=== PATIENT | female | born 1960 | race Caucasian/White ===

== ENCOUNTER 2017-09-16 14:27 | Observation (INO) ==
--- NOTE | 2017-09-16 15:38 | Emergency Department Note ---
Disposition Clinical Impression: Lung mass Disposition: Admitted As Inpatient Condition: Good Time of Disposition: 19:52 Abdominal Pain HPI - General Chief Complaint: ED Abdominal Pain Stated Complaint: Left flank Pain seen last night Time Seen by Provider: 09/16/17 15:22 Source: patient Mode of arrival: ambulatory Limitations: no limitations Nursing Notes Reviewed: Yes Vital Signs Reviewed: Yes - History of Present Illness HPI Narrative: Patient presents to the ED with chief complaint of left flank pain. Patient states the pain started a couple days ago. States it starts in her left back and radiates up towards her left shoulder blade. Worse with movement, but not palpation. It is pleuritic. Makes her feel short of breath. No fever, chills , cough, chest pain, abdominal pain, nausea, vomiting or diarrhea. No previous history of coronary artery disease or kidney stones. No history of DVT, PE or malignancy. No recent travel or surgery. No estrogen use. States that she was seen here yesterday and told she had a muscle strain and states that nothing she was given has helped. Pain Scale: 10 - Related Data Home Medications Medication Instructions Recorded Confirmed Omeprazole [PriLOSEC] 20 mg PO DAILY 09/16/17 09/16/17 Phenytoin ER [Dilantin ER] 200 mg PO BID 09/16/17 09/16/17 Allergies Allergy/AdvReac Type Severity Reaction Status Date / Time No Known Allergies Allergy Verified 09/16/17 17:55 Review of Systems: As reviewed in the HPI. All other systems reviewed are negative or normal. Abdominal Pain PMH - Past Medical History Medical history: Reports: seizures Female Surgical History: Reports: other Psychiatric history: Reports: no psych history - Social History Smoking status: Current every day smoker Alcohol use: Reports: none Drug use: Reports: none Physical Exam CONSTITUTIONAL: Well appearing, but does appear uncomfortable, in no acute distress SKIN: [Warm, dry, and intact without rash] EYES: [extraocular movements are grossly intact, clear conjunctiva] HENT: [Normocephalic, atraumatic, moist mucus membranes] NECK: [no obvious swelling, normal range of motion] PULMONARY: [normal chest rise and fall, no respiratory distress or stridor CARDIOVASCULAR: [regular rate, distal extremities are warm and well perfused] GASTROINSTESTINAL: [nondistended, non-tender] GENITOURINARY: [deferred] NEUROLOGIC: [normal speech, moves all extremities] MUSCULOSKELETAL: [no gross deformities, atraumatic, no flank or muscular tenderness in the area the patient is describing] PSYCHIATRIC: [normal mood and affect] - General Limitations: no limitations General appearance: alert, in no apparent distress Course Course Narrative: Patient presenting to the ED with left flank pain radiating to her left shoulder. Was seen yesterday and had a urinalysis that did show some hematuria. We will get a CT of her abdomen and pelvis to evaluate for kidney stone. Also will get a cardiac workup including a d-dimer for atypical chest pain with CXR, does have a long h/o smoking - Reevaluation(s) Reevaluation #1: CXR shows large L hilar mass. Concerning for CA. CTA shows large mass as well. Spoke with oncology, Dr. Springer, would like patient admitted with pulm consult for biopsy and initiation of treatment. Vital Signs Temperature 98.1 F 09/16/17 14:58 Pulse Rate 87 09/16/17 14:58 Respiratory Rate 20 09/16/17 14:58 Blood Pressure 112/69 09/16/17 14:58 O2 Sat by Pulse Oximetry 96 09/16/17 14:58 Temperature 98.1 F 09/16/17 15:26 Pulse Rate 84 09/16/17 19:13 Respiratory Rate 18 09/16/17 19:43 Blood Pressure 122/67 09/16/17 19:43 O2 Sat by Pulse Oximetry 96 09/16/17 19:13 Oxygen Delivery Oxygen Delivery Room Air Abdominal Pain - Lab Data Result diagrams: 09/16/17 15:42 09/16/17 15:42 Lab Results 09/16/17 09/16/17 09/16/17 Range/Units 15:36 15:42 15:42 WBC 12.6 H (4.3-11.1) K/mcL RBC 4.46 (3.82-4.97) M/mcL Hgb 13.4 (11.5-15.4) g/dL Hct 40.8 (35.3-44.9) % MCV 91.5 (83.0-100.0) fL MCH 30.0 (28.0-33.3) pg MCHC 32.8 (31.6-35.5) g/dL RDW 14.6 H (11.5-14.5) % Plt Count 460 H (140-400) K/mcL MPV 9.2 L (9.4-12.4) fL Immature Gran % 0.5 (0-4) % Seg Neutrophils % 77.2 % Lymphocytes % 13.4 % Monocytes % 7.9 % Eosinophils % 0.5 % Basophils % 0.5 % Neutrophils # 9.7 H (1.6-8.9) K/mcL Lymphocytes # 1.7 (0.6-4.6) K/mcL Monocytes # 1.0 (0.0-1.3) K/mcL Eosinophils # 0.1 (0.0-0.6) K/mcL Basophils # 0.1 (0.0-0.2) K/mcL D-Dimer (0-500) ng/mLFEU Sodium 138 (136-145) mEq/L Potassium 4.1 (3.5-5.1) mEq/L Chloride 108 H (98-107) mEq/L Carbon Dioxide 23 (23-29) mEq/L BUN 14 (6-20) mg/dL Creatinine 0.74 (0.60-1.20) mg/dL Est GFR ( Amer) > 60 (> 60) Est GFR (Non-Af Amer) > 60 (> 60) BUN/Creatinine Ratio 19 (6-26) Glucose 105 (70-105) mg/dL Calculated Osmolality 287 (280-300) Calcium 9.7 (8.6-10.3) mg/dL Troponin I (< 0.04) ng/mL Urine Color Yellow (Yellow) Urine Clarity Clear (Clear) Urine pH 5.0 (5.0-8.0) pH Units Ur Specific [place] 1.025 (1.010-1.025) Urine Protein Negative (Neg-Trace) mg/dL Urine Glucose (UA) Normal (Normal) mg/dL Urine Ketones 15 H (Negative) mg/dL Urine Blood Negative (Negative) Urine Nitrite Negative (Negative) Urine Bilirubin Small H (Negative) Urine Urobilinogen Normal (Normal) mg/dL Ur Leukocyte Esterase Negative (Negative) Ur Culture Indicated? NO (NO) 09/16/17 09/16/17 Range/Units 15:42 15:42 WBC (4.3-11.1) K/mcL RBC (3.82-4.97) M/mcL Hgb (11.5-15.4) g/dL Hct (35.3-44.9) % MCV (83.0-100.0) fL MCH (28.0-33.3) pg MCHC (31.6-35.5) g/dL RDW (11.5-14.5) % Plt Count (140-400) K/mcL MPV (9.4-12.4) fL Immature Gran % (0-4) % Seg Neutrophils % % Lymphocytes % % Monocytes % % Eosinophils % % Basophils % % Neutrophils # (1.6-8.9) K/mcL Lymphocytes # (0.6-4.6) K/mcL Monocytes # (0.0-1.3) K/mcL Eosinophils # (0.0-0.6) K/mcL Basophils # (0.0-0.2) K/mcL D-Dimer 1037 H (0-500) ng/mLFEU Sodium (136-145) mEq/L Potassium (3.5-5.1) mEq/L Chloride (98-107) mEq/L Carbon Dioxide (23-29) mEq/L BUN (6-20) mg/dL Creatinine (0.60-1.20) mg/dL Est GFR ( Amer) (> 60) Est GFR (Non-Af Amer) (> 60) BUN/Creatinine Ratio (6-26) Glucose (70-105) mg/dL Calculated Osmolality (280-300) Calcium (8.6-10.3) mg/dL Troponin I < 0.03 (< 0.04) ng/mL Urine Color (Yellow) Urine Clarity (Clear) Urine pH (5.0-8.0) pH Units Ur Specific [place] (1.010-1.025) Urine Protein (Neg-Trace) mg/dL Urine Glucose (UA) (Normal) mg/dL Urine Ketones (Negative) mg/dL Urine Blood (Negative) Urine Nitrite (Negative) Urine Bilirubin (Negative) Urine Urobilinogen (Normal) mg/dL Ur Leukocyte Esterase (Negative) Ur Culture Indicated? (NO)
[2017-09-16 15:50] LABS: Bilirubin,Urine Small (Negative); Blood,Urine Negative (Negative); Clarity,Urine Clear (Clear); Color,Urine Yellow (Yellow); Glucose,Urine (UA) Normal (Normal); Ketones,Urine 15 mg/dL (Negative); Leukocyte Esterase,Urine Negative (Negative); Nitrite,Urine Negative (Negative); Protein,Urine Negative (Neg-Trace); Specific Gravity,Urine 1.025 (1.010-1.025); Urobilinogen,Urine Normal (Normal)
[2017-09-16] MEDS ORDERED: *HR* Morphine 2 MG/ML SYRINGE IVP ONE (15:58)
[2017-09-16] MEDS ORDERED: Ondansetron 4 MG/2 ML VIAL IVP ONE (15:58)
[2017-09-16] MEDS ORDERED: 0.9 % Sodium Chloride 1,000 ML IVC ONE (15:58)
[2017-09-16] MEDS ORDERED: Orphenadrine 60 MG/2 ML VIAL IV ONE (15:58)
[2017-09-16 15:59] LABS: Basophils # 0.1 K/mcL (0.0-0.2); Basophils % 0.5 %; Eosinophils # 0.1 K/mcL (0.0-0.6); Eosinophils % 0.5 %; Hematocrit 40.8 % (35.3-44.9); Hemoglobin 13.4 g/dL (11.5-15.4); Immature Granulocytes % 0.5 % (0-4); Lymphocytes # 1.7 K/mcL (0.6-4.6); Lymphocytes % 13.4 %; Mean Corpuscular HGB Conc 32.8 g/dL (31.6-35.5); Mean Corpuscular Volume 91.5 fL (83.0-100.0); Mean Platelet Volume 9.2 fL (9.4-12.4); Monocytes % 7.9 %; Neutrophils # 9.7 K/mcL (1.6-8.9); Platelet Count 460 K/mcL (140-400); Red Blood Count 4.46 M/mcL (3.82-4.97); Red Cell Distribution Width 14.6 % (11.5-14.5); Segmented Neutrophils % 77.2 %
[2017-09-16 16:16] LABS: BUN/Creatinine Ratio 19 (6-26); Blood Urea Nitrogen 14 mg/dL (6-20); Calcium 9.7 mg/dL (8.6-10.3); Carbon Dioxide 23 mEq/L (23-29); Chloride 108 mEq/L (98-107); Glucose 105 mg/dL (70-105); Osmolality,Calculated 287 (280-300); Potassium 4.1 mEq/L (3.5-5.1); Sodium 138 mEq/L (136-145); eGFR For Non-African Americans > 60 (> 60)
[2017-09-16] MEDS ORDERED: Isovue-370 500 ML INFUS..BTL IV ONE (16:26)
--- NOTE | 2017-09-16 17:25 | Emergency Department Note ---
Disposition Clinical Impression: Lung mass Disposition: Still a Patient Forms: ED Satisfaction Letter, Work/School Release General Adult HPI - General Chief complaint: ED Abdominal Pain Stated complaint: Left flank Pain seen last night Time Seen by Provider: 09/16/17 15:22 Source: patient Mode of arrival: ambulatory Limitations: no limitations - History of Present Illness Pain Scale: 10 - Related Data Previous Rx's Medication Instructions Recorded Lidocaine Patch [Lidoderm 5% patch] 1 each TP DAILY PRN #4 adh..patch 09/15/17 Allergies Allergy/AdvReac Type Severity Reaction Status Date / Time No Known Allergies Allergy Verified 09/16/17 14:57 Past Medical History - Past Medical History Medical history: Reports: seizures Psychiatric history: Reports: no psych history - Social History Smoking Status: Current every day smoker Alcohol use: Reports: none Drug use: Reports: none Physical Exam - General Limitations: no limitations General appearance: alert, in no apparent distress Course Vital Signs Temperature 98.1 F 09/16/17 14:58 Pulse Rate 87 09/16/17 14:58 Respiratory Rate 20 09/16/17 14:58 Blood Pressure 112/69 09/16/17 14:58 O2 Sat by Pulse Oximetry 96 09/16/17 14:58 Temperature 98.1 F 09/16/17 15:26 Pulse Rate 87 09/16/17 15:26 Respiratory Rate 20 09/16/17 15:26 Blood Pressure 112/69 09/16/17 15:26 O2 Sat by Pulse Oximetry 96 09/16/17 15:26 Oxygen Delivery Oxygen Delivery Room Air Medical Decision Making - Lab Data Result diagrams: 09/16/17 15:42 09/16/17 15:42 Lab Results 09/16/17 09/16/17 09/16/17 Range/Units 15:36 15:42 15:42 WBC 12.6 H (4.3-11.1) K/mcL RBC 4.46 (3.82-4.97) M/mcL Hgb 13.4 (11.5-15.4) g/dL Hct 40.8 (35.3-44.9) % MCV 91.5 (83.0-100.0) fL MCH 30.0 (28.0-33.3) pg MCHC 32.8 (31.6-35.5) g/dL RDW 14.6 H (11.5-14.5) % Plt Count 460 H (140-400) K/mcL MPV 9.2 L (9.4-12.4) fL Immature Gran % 0.5 (0-4) % Seg Neutrophils % 77.2 % Lymphocytes % 13.4 % Monocytes % 7.9 % Eosinophils % 0.5 % Basophils % 0.5 % Neutrophils # 9.7 H (1.6-8.9) K/mcL Lymphocytes # 1.7 (0.6-4.6) K/mcL Monocytes # 1.0 (0.0-1.3) K/mcL Eosinophils # 0.1 (0.0-0.6) K/mcL Basophils # 0.1 (0.0-0.2) K/mcL D-Dimer (0-500) ng/mLFEU Sodium 138 (136-145) mEq/L Potassium 4.1 (3.5-5.1) mEq/L Chloride 108 H (98-107) mEq/L Carbon Dioxide 23 (23-29) mEq/L BUN 14 (6-20) mg/dL Creatinine 0.74 (0.60-1.20) mg/dL Est GFR ( Amer) > 60 (> 60) Est GFR (Non-Af Amer) > 60 (> 60) BUN/Creatinine Ratio 19 (6-26) Glucose 105 (70-105) mg/dL Calculated Osmolality 287 (280-300) Calcium 9.7 (8.6-10.3) mg/dL Troponin I (< 0.04) ng/mL Urine Color Yellow (Yellow) Urine Clarity Clear (Clear) Urine pH 5.0 (5.0-8.0) pH Units Ur Specific [place] 1.025 (1.010-1.025) Urine Protein Negative (Neg-Trace) mg/dL Urine Glucose (UA) Normal (Normal) mg/dL Urine Ketones 15 H (Negative) mg/dL Urine Blood Negative (Negative) Urine Nitrite Negative (Negative) Urine Bilirubin Small H (Negative) Urine Urobilinogen Normal (Normal) mg/dL Ur Leukocyte Esterase Negative (Negative) Ur Culture Indicated? NO (NO) 09/16/17 09/16/17 Range/Units 15:42 15:42 WBC (4.3-11.1) K/mcL RBC (3.82-4.97) M/mcL Hgb (11.5-15.4) g/dL Hct (35.3-44.9) % MCV (83.0-100.0) fL MCH (28.0-33.3) pg MCHC (31.6-35.5) g/dL RDW (11.5-14.5) % Plt Count (140-400) K/mcL MPV (9.4-12.4) fL Immature Gran % (0-4) % Seg Neutrophils % % Lymphocytes % % Monocytes % % Eosinophils % % Basophils % % Neutrophils # (1.6-8.9) K/mcL Lymphocytes # (0.6-4.6) K/mcL Monocytes # (0.0-1.3) K/mcL Eosinophils # (0.0-0.6) K/mcL Basophils # (0.0-0.2) K/mcL D-Dimer 1037 H (0-500) ng/mLFEU Sodium (136-145) mEq/L Potassium (3.5-5.1) mEq/L Chloride (98-107) mEq/L Carbon Dioxide (23-29) mEq/L BUN (6-20) mg/dL Creatinine (0.60-1.20) mg/dL Est GFR ( Amer) (> 60) Est GFR (Non-Af Amer) (> 60) BUN/Creatinine Ratio (6-26) Glucose (70-105) mg/dL Calculated Osmolality (280-300) Calcium (8.6-10.3) mg/dL Troponin I < 0.03 (< 0.04) ng/mL Urine Color (Yellow) Urine Clarity (Clear) Urine pH (5.0-8.0) pH Units Ur Specific [place] (1.010-1.025) Urine Protein (Neg-Trace) mg/dL Urine Glucose (UA) (Normal) mg/dL Urine Ketones (Negative) mg/dL Urine Blood (Negative) Urine Nitrite (Negative) Urine Bilirubin (Negative) Urine Urobilinogen (Normal) mg/dL Ur Leukocyte Esterase (Negative) Ur Culture Indicated? (NO) Attestation Statement - Attestation Attestation: I examined this patient and my medical decision-making was reviewed with the Resident Physician. I agree with the documented findings, disposition and treatment plan as described except to the extent set forth below. 57 year old female presents to the ED with complanits of left flan pain that appears to be more left lower ribs and is not tender to palpation. She was seen here recently. She denies headache, hemoptyosis or pdocutive cough but states that the pain is deeper especially with deep breaths. She is a long standing smoker since she was 16 years of age wihtout history of cancer or HX of DVTs/PEs. WE will do CTA chest as her D-dimer came back positive and concordant UA has cleared up. 1724: It appears that there is a large lung mass on CXR and it is confirmed on CTA for possibe primary neoplams of the lung. WE will consutl wi oncology
[2017-09-16] MEDS ORDERED: Naloxone 0.4 MG/ML INJ IVP PRN ×2 (20:40)
[2017-09-16] MEDS ORDERED: OXYCODONE Oral CONC 10 MG/0.5 ML ORAL.SYG SL PRN (20:40)
--- NOTE | 2017-09-16 20:40 | Internal Med History&Physical ---
<Bryce Clemons - Last Filed: 09/16/17 21:53> Date of Encounter: 09/16/17 Time of Encounter: 20:39 Internal Medicine - H&P: HPI Chief complaint: Flank pain Admitted From: Emergency Dept Plans for Post Hospital Care: Home History of present illness: Ms. Garrett is a 57 year old female with past medical history of seizures presented to emergency department with complaint of left flank pain 5 days. She was notably seen emergency department on 09/15/17 with the same complaint and was discharged home with suspected musculoskeletal pain and sent home with a lidocaine patch. Patient states that the pain is located in the left flank and does not radiate. She describes it as a squeezing pain and has never experienced this in the past. Pain is exacerbated by lying flat, coughing, deep breaths and is relieved only minimally with sitting up. She denies any symptoms of chest pain, shortness of breath, cough outside of her normal smoker' s cough, fevers, nausea, vomiting, abdominal pain, dysuria, hematuria. Patient does admit to some chills over the past 24 hours. In the emergency room, vital signs were unremarkable and lab results were standard for a d-dimer of 1037 and CTA of the chest was obtained. This did reveal a large perihilar mass in the left side measuring 7.26.6 cm which encases and invades the left hilar structures. CT of the abdomen was unremarkable except for above findings. Oncology was consult that at that time and recommended admission with a pulmonary consult for possibly a bronchoscopy and biopsy of mass. Patient was informed that this is likely malignant in nature. Past medical history includes seizures most recently 4 years ago well- controlled on medications Past surgical history to abdomen includes tubal Social history includes a 39 [id number] history of cigarette smoking, denies alcohol or drug use Past Med Surg Social Fam HX - Past Medical History Medical history: seizures Psychiatric history: no psych history - Past Surgical History Additional surgical history: tubal - Social History Smoking Status: Current every day smoker Packs per day: 1 Smokeless Tobacco Status: No Alcohol use: none Drug use: none - Family History Father Hx Family Cardiac Disorders: Yes (HTN) Internal Medicine - H&P: Meds Omeprazole [PriLOSEC] 20 mg PO DAILY 09/16/17 [History] Phenytoin ER [Dilantin ER] 200 mg PO BID 09/16/17 [History] 3 Allergy/AdvReac Type Severity Reaction Status Date / Time No Known Allergies Allergy Verified 09/16/17 17:55 All Systems PM: A 10-system review of systems was performed and is negative for pertinent findings except as documented above in the HPI. - Constitutional Constitutional: chills, no fatigue, no fever(s), no lethargy, no malaise, no weakness - Cardiovascular Cardiovascular ROS IM: no chest pain, no diaphoresis, no dyspnea, no dyspnea on exertion, no edema, no orthopnea, no palpitations, no syncope - Respiratory Respiratory: cough (Chronic), pain on inspiration, pain with cough, no dyspnea, no hemoptysis, no dyspnea on exertion - Gastrointestinal Gastrointestinal: no abdominal pain, no change in bowel habits, no constipation , no diarrhea, no hematemesis, no hematochezia, no melena, no nausea, no vomiting - Genitourinary Genitourinary: flank pain, no dysuria, no hematuria - Musculoskeletal Musculoskeletal ROS IM: back pain - Integumentary Integumentary IM: no new lesions - Neurological Neurological ROS: no dizziness, no numbness, no tingling - Constitutional Vitals: Temp Pulse Resp BP Pulse Ox 98.6 F 86 16 123/67 96 09/16/17 20:09 09/16/17 20:09 09/16/17 20:09 09/16/17 20:09 09/16/17 20:09 Exam: Gen.: Vitals noted. No acute distress. AAOx3 HEENT: PERRL/EOMI, oropharynx clear, Normocephalic, atraumatic, MMM Cardiac: RRR, no murmur, +S1/S2 Pulmonary: CTA bilaterally, no wheezes, rales or rhonchi, equal chest expansion Abdomen: soft, nontender, BS noted, no guarding, no rebound. MSK: Reproducible flank pain on left Extremities: no BLE edema, nontender calf, no cyanosis or clubbing Neuro: A&Ox3, moves all extremities, no focal deficits Psych: Appropriate mood and behavior Internal Med - H&P Results - Labs CBC & Chem 7: 09/16/17 15:42 09/16/17 15:42 - Assessment and plan (1) Lung mass Current Visit: Yes Status: Acute Assessment and plan: - As demonstrated on CT scan emerged department - Left perihilar mass measuring 7.2 x 6.6 cm which encases and invades the left perihilar structures. Likely malignant - Oncology consult that in emergency department and recommend biopsy and admission for such. Pulmonology was in consult in for preparation for bronchoscopy with biopsy - Patient is having no symptoms of chest pain, shortness of breath, hematemesis , hemoptysis Plan - Closely monitor for signs of deterioration given extent of mass - Oncology and pulmonology consultation, appreciate recommendations - We will give supplemental oxygen as needed (2) Acute left flank pain Current Visit: Yes Status: Acute Assessment and plan: Suspect secondary to diaphragmatic irritation from lung mass versus referred pain CT scan in the emergency department of the abdomen showed no acute abnormalities except for lung mass as mentioned above Supportive care at this time (3) Seizures Current Visit: Yes Status: Acute Assessment and plan: Continue home medications, patient reports no seizures last 4 years on medication (4) Tobacco abuse Current Visit: Yes Status: Acute Assessment and plan: - Patient admits to one pack per day since age 16 - Counseled about smoking cessation, patient is adamant that she is going to quit after diagnosis of lung mass - Nicotine patches (5) DVT prophylaxis Current Visit: Yes Status: Acute Assessment and plan: SCDs in preparation for possible biopsy tomorrow - Time Spent With Patient Total time spent is greater than 50% in coordination of care (as documented) at patient's floor/unit and/or counseling patient: <Antoine Snow - Last Filed: 09/17/17 07:48> Date of Encounter: 09/16/17 Internal Medicine - H&P: HPI History of present illness: Ms. Garrett is a 57 year old female All Systems PM: A 10-system review of systems was performed and is negative for pertinent findings except as documented above in the HPI. - Constitutional Vitals: Temp Pulse Resp BP Pulse Ox 98.2 F 82 18 109/64 94 09/17/17 07:30 09/17/17 07:30 09/17/17 07:30 09/17/17 07:30 09/17/17 07:30 Internal Med - H&P Results - Labs CBC & Chem 7: 09/17/17 05:22 09/17/17 05:22 Labs: Short CBC 09/17/17 Range/Units 05:22 WBC 11.3 H (4.3-11.1) K/mcL Hgb 12.2 (11.5-15.4) g/dL Hct 37.3 (35.3-44.9) % Plt Count 441 H (140-400) K/mcL Neutrophils # 7.9 (1.6-8.9) K/mcL BMP 09/17/17 05:22 Sodium 140 Potassium 3.9 Chloride 107 Carbon Dioxide 22 L BUN 11 Creatinine 0.72 Glucose 75 Calcium 9.1 - Attending Attestation I saw and evaluated the patient. I reviewed the residents note, performed my own physical examination and agree with findings and plan as documented in the residents note. Patient has large lung mass as seen on CT exam. Patient has left flank pain, possibly due irritation from the mass. Pulmonology and oncology to see patient for treatment options. - Time Spent With Patient Total time spent is greater than 50% in coordination of care (as documented) at patient's floor/unit and/or counseling patient:
[2017-09-16] MEDS: Ondansetron 4 MG/2 ML VIAL IVP PRN (22:25)
[2017-09-17] MEDS ORDERED: OXYCODONE Oral CONC 10 MG/0.5 ML ORAL.SYG SL ONE (01:14)
[2017-09-17] MEDS: OXYCODONE Oral CONC 10 MG/0.5 ML ORAL.SYG SL PRN (05:51)
[2017-09-17 06:14] LABS: Basophils # 0.1 K/mcL (0.0-0.2); Basophils % 0.5 %; Eosinophils # 0.1 K/mcL (0.0-0.6); Eosinophils % 0.4 %; Hematocrit 37.3 % (35.3-44.9); Hemoglobin 12.2 g/dL (11.5-15.4); Immature Granulocytes % 0.4 % (0-4); Lymphocytes # 2.1 K/mcL (0.6-4.6); Lymphocytes % 18.6 %; Mean Corpuscular HGB Conc 32.7 g/dL (31.6-35.5); Mean Corpuscular Hemoglobin 30.1 pg (28.0-33.3); Mean Corpuscular Volume 92.1 fL (83.0-100.0); Mean Platelet Volume 9.7 fL (9.4-12.4); Monocytes # 1.1 K/mcL (0.0-1.3); Monocytes % 9.9 %; Neutrophils # 7.9 K/mcL (1.6-8.9); Platelet Count 441 K/mcL (140-400); Red Blood Count 4.05 M/mcL (3.82-4.97); Red Cell Distribution Width 14.6 % (11.5-14.5); Segmented Neutrophils % 70.2 %
[2017-09-17 06:31] LABS: BUN/Creatinine Ratio 15 (6-26); Blood Urea Nitrogen 11 mg/dL (6-20); Calcium 9.1 mg/dL (8.6-10.3); Carbon Dioxide 22 mEq/L (23-29); Chloride 107 mEq/L (98-107); Glucose 75 mg/dL (70-105); Osmolality,Calculated 288 (280-300); Potassium 3.9 mEq/L (3.5-5.1); Sodium 140 mEq/L (136-145); eGFR For Non-African Americans > 60 (> 60)
[2017-09-17] MEDS: Nicotine 7 MG PATCH.TD24 TD SCH ×2 (07:53→07:55)
--- NOTE | 2017-09-17 09:45 | Pulmonology Consult Note ---
<NickShanaeWilfredo C - Last Filed: 09/17/17 10:35> Date of Encounter: 09/17/17 Time of Encounter: 09:36 Assessment and Plan (1) Lung mass Current Visit: Yes Status: Acute Left Perihilar lung mass measuring 7.2x6.6 cm found on chest CTA yesterday Concerning for primary lung malignancy, diagnostic bronchoscopy with biopsy scheduled for today Differential includes bacterial, fungal, exudative, transudative, or inflammatory processes WBC count elevated, likely reactive, patient afebrile, vitals stable, patient does not meet SIRS criteria CBC and BMP otherwise non-contributory, infection, metabolic derangement or paraneoplastic syndrome unlikely Patient clinical disposition otherwise stable, oxygen saturation within normal limits on room air PRN albuterol nebulizer ordered for comfort, will likely need after bronchoscopy Oncology is also consulted, we will refer to their recommendations (2) Acute left flank pain Current Visit: Yes Status: Acute Left flank pain still acute, likely diaphragmatic and secondary to lung mass CT abdomen showed no acute process Primary team providing supportive care (3) Tobacco abuse Current Visit: Yes Status: Acute Patient is still an active smoker but states she is cutting down Will educate on risks/benefits of smoking cessation History of Present Illness Consult date: 09/16/17 Requesting physician: Mu Lira Reason for consult: lung mass Chief complaint: Lung Mass History of present illness: Ms. Garrett is a 57 -year-old female who presented to the emergency department last night for left flank pain that had been going on for 5 days. The pain does not radiate she describes it as a squeezing pain and has never had in the past. The pain is worsened by lying flat, coughing, deep breaths. She denied any chest pain, shortness of breath. She has a chronic cough likely due to smoking that is productive. She denies fevers, nausea, vomiting, abdominal pain. In the emergency department d-dimer was positive value of 1037, leading to a CTA of the chest. Imaging revealed a large perihilar mass in the left lung measuring 7.2 x 6.6 cm. The mass encases the left hilar structures. CT of the abdomen showed no acute process. At that point pulmonology and oncology were consulted. 4 likely need of diagnostic bronchoscopy. Patient's social history includes [id number] history of cigarette smoking but denies alcohol or drug use. Her only medication is Dilantin for seizures, the last seizure being 4 years ago. She has no other significant past medical history. Her only surgery that she mentions is a tubal . She has no documented history of COPD a diagnosis although she states that her primary care provider has mentioned it to her. She does not have history of asthma or hospitalizations for pneumonia. 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 She has 2 sisters who have had cancer, lung and melanoma respectively. At the point of my encounter her only complaint is fatigue and the left flank pain. She understands the plan for diagnostic bronchoscopy today. She denied any current questions or complaints. Past Med Surg Social Fam HX - Past Medical History Medical history: seizures Psychiatric history: no psych history - Past Surgical History Additional surgical history: tubal - Social History Smoking Status: Current every day smoker Packs per day: 1 Smokeless Tobacco Status: No Alcohol use: none Drug use: none - Family History Father Hx Family Cardiac Disorders: Yes (HTN) Medications and Allergies Omeprazole [PriLOSEC] 20 mg PO DAILY 09/16/17 [History] Phenytoin ER [Dilantin ER] 200 mg PO BID 09/16/17 [History] 3 Allergy/AdvReac Type Severity Reaction Status Date / Time No Known Allergies Allergy Verified 09/16/17 17:55 All Systems: The remainder of the systems were reviewed and are negative - Constitutional Constitutional: no chills, no fever(s) - Cardiovascular Cardiovascular: no chest pain, no diaphoresis, no dyspnea, no leg edema - Respiratory Respiratory: cough, pain with cough, no dyspnea, no hemoptysis, no change in phlegm color - Gastrointestinal Gastrointestinal: no abdominal pain, no vomiting - Musculoskeletal Musculoskeletal: no weakness - Neurological Neurological: no confusion, no syncope Physical Examination Vital Signs: Vital Signs, Last 4 Hours Temp Pulse Resp BP Pulse Ox 09/17/17 07:30 98.2 F 82 18 109/64 94 General appearance: no acute distress Eyes: nonicteric ENT: oropharynx moist Neck: supple, no JVD Effort: normal Inspection: normal Auscultation: bilateral: other (coarse) Cardiovascular: regular rate and rhythm Gastrointestinal: normoactive bowel sounds, non-tender, non-distended Integumentary: normal Extremities: no cyanosis, no edema Musculoskeletal: no deformities normal mental status, non-focal exam mood appropriate, affect normal Results - Laboratory Findings CBC and BMP: 09/17/17 05:22 09/17/17 05:22 PT/INR, D-dimer D-Dimer 1037 ng/mLFEU (0-500) H 09/16/17 15:42 Abnormal lab findings: Abnormal lab results WBC 11.3 K/mcL (4.3-11.1) H 09/17/17 05:22 RDW 14.6 % (11.5-14.5) H 09/17/17 05:22 Plt Count 441 K/mcL (140-400) H 09/17/17 05:22 D-Dimer 1037 ng/mLFEU (0-500) H 09/16/17 15:42 Carbon Dioxide 22 mEq/L (23-29) L 09/17/17 05:22 Urine Ketones 15 mg/dL (Negative) H 09/16/17 15:36 Urine Bilirubin Small (Negative) H 09/16/17 15:36 - Clinical Findings Intake & Output: Intake & Output 09/16/17 09/17/17 09/17/17 23:59 07:59 15:59 Output Total 150 / 150 Balance -150 / -150 Weight 55.1 kg Consult Discharge Plan - Plan Referrals: Loreta Prado CNP [Primary Care Provider] - <Kathleen Dang - Last Filed: 09/17/17 13:45> Date of Encounter: 09/17/17 All Systems: The remainder of the systems were reviewed and are negative Physical Examination Vital Signs: Vital Signs, Last 4 Hours Temp Pulse Resp BP Pulse Ox 09/17/17 11:36 98.3 F 83 18 108/64 95 Results - Laboratory Findings CBC and BMP: 09/17/17 05:22 09/17/17 05:22 PT/INR, D-dimer PT 12.3 Seconds (9.4-12.1) H 09/17/17 12:11 D-Dimer 1037 ng/mLFEU (0-500) H 09/16/17 15:42 Abnormal lab findings: Abnormal lab results WBC 11.3 K/mcL (4.3-11.1) H 09/17/17 05:22 RDW 14.6 % (11.5-14.5) H 09/17/17 05:22 Plt Count 441 K/mcL (140-400) H 09/17/17 05:22 PT 12.3 Seconds (9.4-12.1) H 09/17/17 12:11 D-Dimer 1037 ng/mLFEU (0-500) H 09/16/17 15:42 Carbon Dioxide 22 mEq/L (23-29) L 09/17/17 05:22 Urine Ketones 15 mg/dL (Negative) H 09/16/17 15:36 Urine Bilirubin Small (Negative) H 09/16/17 15:36 - Clinical Findings Intake & Output: Intake & Output 09/16/17 09/17/17 09/17/17 23:59 07:59 15:59 Output Total 150 / 150 400 / 400 Balance -150 / -150 -400 / -400 Weight 55.1 kg - Attending Attestation I examined this patient and my medical decision-making was reviewed with the Resident Physician. I agree with the documented findings, disposition and treatment plan as described except to the extent set forth below. Patient seen and examined. Labs, radiology, chart personally reviewed. 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 We will proceed with bronchoscopy. A bronchoscopy is recommended. The procedure , risks, benefits, complications, and expected outcomes have been reviewed. Benefits of diagnosis, as well as risks to include bleeding, infection, pneumothorax which may require surgical intervention, and in a small population. The patient is aware that sometimes test is nondiagnostic. Discussed with patient and agrees to proceed. Cardiovascular: stable Thank you for consultation.
[2017-09-17] MEDS ORDERED: Albuterol 2.5 MG/3 ML NEBULIZER IH PRN (09:55)
[2017-09-17] MEDS: Ondansetron 4 MG/2 ML VIAL IVP PRN (10:12)
--- NOTE | 2017-09-17 11:32 | Oncology Inp Consult Note ---
<Herlinda Fuentes - Last Filed: 09/17/17 13:51> Date of Encounter: 09/17/17 Time of Encounter: 11:27 Assessment and Plan (1) Lung mass Status: Acute Assessment and plan: Patient presents with left flank pain underwent CTA and was found to have a perihilar lung mass measuring 7.2 x 6.6 cm She has an extensive history of smoking Is concerning for malignancy and she will undergo bronchoscopy today plan to order MRI head w/wo contrast to rule out brain metastasis. PET scan outpatient. (2) Tobacco abuse Status: Acute Assessment and plan: Patient educated on smoking cessation. (3) Cancer screening Status: Acute Assessment and plan: patient was encouraged to obtain screening colonoscopy, mammogram, pap smear as she is not up to date on these follow up with PCP. - Data of Consult Patient: new to practice Consult date: 09/17/17 Requesting Physician: Antoine Snow MD Primary Care Provider: Loreta Prado CNP - Consult Narrative Reason for consult: Large hilar lung mass History of present illness: Ms. Garrett is a 57 year old female presented with chief complaint of left sided flank pain that started 2 days ago. Chest pain was a squeezing pain that radiated around the left ribs to the back. Her pain is worsened by yawning, and taking a deep breath, lying flat. She has never had this type of pain before. She denies headache, blurry vision, double vision, syncope, runny nose , sore throat, cough, sputum production, shortness of breath, hemoptysis, chest pain, palpitations, fevers, nausea, vomiting, abdominal pain, weight loss, hematochezia, melena, lower extremity swelling, LE pain, back pain, intolerance to hot or cold. In the emergency room patient had a d-dimer that was elevated and CT was obtained which showed a large perihilar mass measuring 7.2 x 6.6 cm. Patient has a [id number] history of smoking starting at the age of 16. She denies alcohol or drug use. She denies living in an environment with poor air quality. 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 She reports she does not like following a doctor and has not had a colonoscopy, mammogram and Pap smears in the past. Pulmonology was consulted and patient will undergo bronchoscopy today. Patient has a history of seizures and is on Dilantin and reports last seizure was 4 years ago. Past Med Surg Social Fam HX - Past Medical History Medical history: seizures Psychiatric history: no psych history - Past Surgical History Additional surgical history: tubal - Social History Smoking Status: Current every day smoker Packs per day: 1 Smokeless Tobacco Status: No Alcohol use: none Drug use: none - Family History Father Hx Family Cardiac Disorders: Yes (HTN) Medications and Allergies Omeprazole [PriLOSEC] 20 mg PO DAILY 09/16/17 [History] Phenytoin ER [Dilantin ER] 200 mg PO BID 09/16/17 [History] 3 Allergy/AdvReac Type Severity Reaction Status Date / Time No Known Allergies Allergy Verified 09/16/17 17:55 Review of systems: As per history of present illness Oncology - Exam - Constitutional Vitals: Temp Pulse Resp BP Pulse Ox 98.2 F 82 18 109/64 94 09/17/17 07:30 09/17/17 07:30 09/17/17 07:30 09/17/17 07:30 09/17/17 07:30 - Additional findings Additional findings: General: Pleasant without distress HEENT: Head atraumatic, normocephalic, EOMI, PERRL, neck nontender to palpation , absent lymphadenopathy, Moist Mucous Membranes, Heart: Regular rate and rhythm with no murmur Lungs: Clear to auscultation bilaterally Abdomen: Soft nontender, nondistended positive bowel sounds Skin: warm and dry, absent rash Extremities: Absent pedal edema, Neuro: Cranial nerves II through XII intact, UE and LE sensation equal bilaterally, UE and LEstrength 5/5, alert oriented 3, Vascular: Pedal and radial pulses 2 out of 4 Oncology - Results Labs: 3 09/17/17 09/17/17 05:22 05:22 WBC 11.3 H RBC 4.05 Hgb 12.2 Hct 37.3 MCV 92.1 MCH 30.1 MCHC 32.7 RDW 14.6 H Plt Count 441 H MPV 9.7 Immature Gran % 0.4 Seg Neutrophils % 70.2 Lymphocytes % 18.6 Monocytes % 9.9 Eosinophils % 0.4 Basophils % 0.5 Neutrophils # 7.9 Lymphocytes # 2.1 Monocytes # 1.1 Eosinophils # 0.1 Basophils # 0.1 Sodium 140 Potassium 3.9 Chloride 107 Carbon Dioxide 22 L BUN 11 Creatinine 0.72 Est GFR ( Amer) > 60 Est GFR (Non-Af Amer) > 60 BUN/Creatinine Ratio 15 Glucose 75 Calculated Osmolality 288 Calcium 9.1 Consult Discharge Plan - Plan Referrals: Loreta Prado CNP [Primary Care Provider] - <RoberAnna Marie beyer - Last Filed: 09/18/17 08:39> Date of Encounter: 09/18/17 - Data of Consult Requesting Physician: Antoine Snow MD Primary Care Provider: Loreta Praod CNP - Consult Narrative History of present illness: Ms. Garrett is a 57 year old female with a smoking history, left-sided lower chest pain presented to the emergency room a CT scan was obtained that showed large left upper lung mass extending to the hilum encasing vasculature, status post bronchoscopy and biopsy of the hilar mass. CT scan of the abdomen did not show any evidence of metastatic disease. SHe will need an outpatient PET scan brain imaging prior to beginning definitive treatment. I have discussed possible diagnosis and treatments with patient and family pending final biopsy. I examined this patient with Herlinda Platt and my medical decision- making was reviewed with him. I agree with the documented findings, disposition and treatment plan as described below Oncology - Exam - Constitutional Vitals: Temp Pulse Resp BP Pulse Ox 98.5 F 78 16 101/59 95 09/18/17 07:17 09/18/17 07:17 09/18/17 07:17 09/18/17 07:17 09/18/17 07:17 Oncology - Results Labs: 3 09/17/17 09/17/17 09/17/17 16:01 12:11 05:22 WBC RBC Hgb Hct MCV MCH MCHC RDW Plt Count MPV Immature Gran % Seg Neutrophils % Lymphocytes % Monocytes % Eosinophils % Basophils % Neutrophils # Lymphocytes # Monocytes # Eosinophils # Basophils # PT 12.3 H INR 1.1 Sodium 140 Potassium 3.9 Chloride 107 Carbon Dioxide 22 L BUN 11 Creatinine 0.72 Est GFR ( Amer) > 60 Est GFR (Non-Af Amer) > 60 BUN/Creatinine Ratio 15 Glucose 75 Calculated Osmolality 288 Calcium 9.1 Fluid Source left upper lobe BAL Fluid Volume 16 Fluid Appearance Hazy A Fluid RBC TNP Fld Tot Nucleated Cell TNP Fluid Seg Neutrophil % 71.0 Fluid Lymphocytes % 7.0 Fluid Monocytes % 2.0 Fluid Eosinophils % 1.0 Fluid Other Cells % 19.0 3 09/17/17 05:22 WBC 11.3 H RBC 4.05 Hgb 12.2 Hct 37.3 MCV 92.1 MCH 30.1 MCHC 32.7 RDW 14.6 H Plt Count 441 H MPV 9.7 Immature Gran % 0.4 Seg Neutrophils % 70.2 Lymphocytes % 18.6 Monocytes % 9.9 Eosinophils % 0.4 Basophils % 0.5 Neutrophils # 7.9 Lymphocytes # 2.1 Monocytes # 1.1 Eosinophils # 0.1 Basophils # 0.1 PT INR Sodium Potassium Chloride Carbon Dioxide BUN Creatinine Est GFR ( Amer) Est GFR (Non-Af Amer) BUN/Creatinine Ratio Glucose Calculated Osmolality Calcium Fluid Source Fluid Volume Fluid Appearance Fluid RBC Fld Tot Nucleated Cell Fluid Seg Neutrophil % Fluid Lymphocytes % Fluid Monocytes % Fluid Eosinophils % Fluid Other Cells %
[2017-09-17 12:38] LABS: INR 1.1; Prothrombin Time 12.3 Seconds (9.4-12.1)
[2017-09-17] MEDS ORDERED: Gadolinium Contrast Agent (WT Based) IV PRN (13:53)
--- NOTE | 2017-09-17 14:01 | Anesthesia Evaluation PreOp ---
Date of Encounter: 09/17/17 Time of Encounter: 13:59 - Past History Planned Operation: Bronchoscopy re: Lung Mass Cardiac History: Denies any Significant Hx Pulmonary History: Smoker (1 ppd x 41yrs) CAD INTERN History: Seizures (well controlled. Last Sz approx 4 years ago) Other Medical History: Denies Any Significant HX, GERD Anesthesia History: Past Anesthesia (Ectopic 2000) Alcohol Use: none Drug use: none Medications and Allergies Omeprazole [PriLOSEC] 20 mg PO DAILY 09/16/17 [History] Phenytoin ER [Dilantin ER] 200 mg PO BID 09/16/17 [History] 3 Allergy/AdvReac Type Severity Reaction Status Date / Time No Known Allergies Allergy Verified 09/16/17 17:55 - Meds/Allergy Pre-op Review Medications Reviewed: Yes Allergies Reviewed: Yes Beta Blockers on Current Med List: No Anesthesia Results - Labs 09/17/17 05:22 09/17/17 05:22 Laboratory Results Impressions Abdomen/Pelvis CT 09/16/17 15:24 IMPRESSION: 1. Invasive mass involving the left hilar region, incompletely evaluated. Additionally, there is a small loculated left pleural effusion, and possible postobstructive pneumonitis of the left lower lobe. Findings are concerning for malignancy. Please refer to CTA chest for further comment. 2. No acute findings within the abdomen. 3. No acute findings within the pelvis. D/ / 09/16/2017 17:14:40 Rory Solitario MD / [facility] Interpreting Provider: Rory Solitario MD Chest X-Ray 09/16/17 15:35 IMPRESSION: Large left lung mass with left basilar atelectasis and trace left pleural effusion. Recommend better characterization with contrast-enhanced CT of the chest D/ / Juancarlos Green MD / Juancarlos Green MD Interpreting Provider: Juancarlos Green MD Chest CTA 09/16/17 16:26 IMPRESSION: Large left upper lobe mass measuring 7.2 x 6.6 cm which has the appearance of a primary malignant neoplasm of the lung. The mass encases and invades into left hilar structures. Postobstructive changes seen in the lingula and left lower lobe as well as small left pleural effusion. There is no evidence of acute pulmonary embolism although there is invasion into the left pulmonary vein. D/ / 09/16/2017 17:13:01 Leatha Luke MD / Janie Trevino Interpreting Provider: Leatha Luke MD Laboratory Tests 09/16/17 09/17/17 09/17/17 15:42 05:22 12:11 PT 12.3 H INR 1.1 D-Dimer 1037 H Est GFR (Non-Af Amer) > 60 - Imaging Chest x-ray: report reviewed Anesthesia Exam Vital Signs Temp Pulse Resp BP Pulse Ox 09/17/17 11:36 98.3 F 83 18 108/64 95 09/17/17 07:30 98.2 F 82 18 109/64 94 09/17/17 03:59 98.7 F 84 16 116/68 94 09/16/17 23:54 98.5 F 83 16 121/65 97 09/16/17 20:09 98.6 F 86 16 123/67 96 09/16/17 19:43 18 122/67 09/16/17 19:13 84 16 123/67 96 09/16/17 17:41 83 16 117/69 96 09/16/17 15:26 98.1 F 87 20 112/69 96 09/16/17 14:58 98.1 F 87 20 112/69 96 Intake and Output 09/16/17 09/17/17 09/17/17 23:59 07:59 15:59 Intake Total 1000 / 1000 Output Total 150 / 150 400 / 400 Balance 1000 / 1000 -150 / -150 -400 / -400 Intake: IV Fluids 1000 / 1000 0.9 % Sodium Chloride 1,000 ML 1000 / 1000 @ 3750 mls/hr IVC .Q16M ONE Rx# :[id number] Output: Urine 150 / 150 400 / 400 Other: Weight 55.1 kg Height: 5'1" Weight: 121# BMI = 23 NPO (# of Hours): MNoc - HEENT Pupil (Motor): Pupils equal, EOMI Mallampati: III Teeth: Normal (fair dentition) Oral Opening: Greater than 3 - CAD INTERN LOC: Oriented CAD INTERN Motor: Normal RUE, Normal LUE, Normal RLE, Normal LLE, Normal Face CAD INTERN Sensory: Normal: RUE, LUE, RLE, LLE, Face - Cardiac Rhythm: Regular Murmur: None - Pulmonary Breath Sounds: bilateral Clear Respiratory Effort: Symmetrical Anesthesia Assess/Plan ASA Score: 3 (Smoker, Sz disorder, New PeriHilar lung mass) Modified [place] Scale for Level of Consciousness: Cooperative, oriented, and tranquil Anesthetic Plan: General Monitoring Plan: Standard Monitors Recovery Plan: PACU Anes Supervising Prov Stmt: Pt seen/evaluated, R&B Discussed, questions answered and consent obtained. Zak Mejia MD
[2017-09-17] MEDS ORDERED: Ipratropium/Albuterol Neb 3 ML ONE (14:17)
[2017-09-17] MEDS ORDERED: Lidocaine -MPF 2% 2 ML VIAL ONE (14:34)
[2017-09-17] MEDS ORDERED: *HR* Succinylcholine 200 MG/10 ML VIAL IVP ONE (14:34)
[2017-09-17] MEDS ORDERED: *HR* Propofol 200 MG/20 ML VIAL IVP ONE ×2 (14:34→15:09)
[2017-09-17] MEDS ORDERED: Lidocaine -MPF 4% 5 ML AMPUL ONE (14:34)
[2017-09-17] MEDS ORDERED: Ondansetron 4 MG/2 ML VIAL ONE (14:34)
[2017-09-17] MEDS ORDERED: Dexamethasone 4 MG/ML VIAL ONE (14:34)
[2017-09-17] MEDS ORDERED: Ondansetron 4 MG/2 ML VIAL IVP ONE (15:02)
[2017-09-17] MEDS ORDERED: *HR* Labetalol 20 MG/4 ML SYRINGE IVP PRN (15:02)
[2017-09-17] MEDS ORDERED: EPHEDrine 50 MG/ML VIAL ONE (15:22)
[2017-09-17] MEDS ORDERED: *HR* FentaNYL (PF) 100 MCG/2 ML VIAL ONE (15:32)
[2017-09-17] MEDS ORDERED: *HR* EPINEPHrine 1 MG/10 ML SYRINGE ONE (15:57)
--- NOTE | 2017-09-17 16:13 | Anesthesia Evaluation Post Op ---
Date of Encounter: 09/17/17 Time of Encounter: 16:11 - Vital Signs Vital Signs: Vital Signs/O2 Sat, Most Current Temp Pulse Resp BP Pulse Ox 97.4 F L 99 26 131/64 96 09/17/17 15:54 09/17/17 16:04 09/17/17 16:04 09/17/17 16:04 09/17/17 16:04 - Lungs Lungs: Rhonchi (end exp. with frequent cough), Treatment Ordered - Cardiovascular Regular Rate, Treatment Ordered (albuteral RTx) - Mental Status Mental Status: Alert & Oriented, Answers Appropriately - Pain Pain Scale: 0 - Nausea Vomiting Nausea Vomiting: Not Present - Hydration Hydration: NPO - Discharge PostOp Status: Transfer Patient to floor
[2017-09-17] MEDS: Ringers Solution, Lactated 1,000 ML IVC SCH (16:31)
--- NOTE | 2017-09-17 17:37 | Internal Med Progress Note ---
Hospitalist Progress Note - Encounter Date of Encounter: 09/17/17 Time of Encounter: 09:50 - Subjective Interval History: Patient was seen and assessed at bedside at 9:50 AM. She appears to be uncomfortable and reports left flank pain for 5 days. Lungs are clear and diminished due to poor inspiratory effort. Patient is aware that she is to undergo bronchoscopy today and see oncology and pulmonology. We will reassess pain tomorrow, we will probably start patient on long-term medication for discharge. - Exam Vitals: Temp Pulse Resp BP Pulse Ox 97.2 F L 88 26 106/57 92 09/17/17 16:24 09/17/17 17:00 09/17/17 16:24 09/17/17 17:00 09/17/17 17:00 Exam: Pt pwd, no rashes or lesions noted, she is alert and awake, oriented, no focal neurological deficits. PERRLA, no facial droop, or pronator drift. Neck is supple without lymphadenopathy, no tracheal deviation. Lungs are clear and diminished, poor inspiratory effort noted due to pain. There is no tachypnea, wheezing, rales, or rhonchi. S1 and S2 is heard without tachycardia bradycardia. There are no gallops, clicks, murmurs. Abdomen is soft and nontender to palpation, slightly rounded with bowel sounds present. She has no peripheral edema. Pedal and radial pulses are +2 bilaterally. - Assessment and Plan (1) Lung mass Current Visit: Yes Status: Acute Assessment and Plan: Per CT the emergency department. - Left perihilar mass measuring 7.2 x 6.6 cm which encases and invades the left perihilar structures. Likely malignant Patient had bronchoscopy today for biopsy. Patient was also evaluated by oncology. Recommend patient have PET scan outpatient, obtain screening colonoscopy, mammogram, Pap smear since she is not up-to-date. Brain MRI is ordered and pending. O2 as needed to maintain sats greater than 92% Pulmonology and oncology following, I appreciate their recommendations and consultations. Monitor patient for any signs of deterioration. (2) Tobacco abuse Current Visit: Yes Status: Acute Assessment and Plan: Smoking cessation counseling completed by previous provider. Continue NicoDerm patches. (3) DVT prophylaxis Current Visit: Yes Status: Acute Assessment and Plan: SCDs are ordered. (4) Seizures Current Visit: Yes Status: Acute Assessment and Plan: Chronic. Well controlled. Last seizure was 4 years ago. Continue home medication. DVT Prophylaxis: SCDs ordered. - Time Spent with Patient Total time spent is greater than 50% in coordination of care (as documented) at patient's floor/unit and/or counseling patient: less than 15 minutes Plan of Care Discussed with: family Internal Medicine: Result - Labs CBC & Chem 7: 09/17/17 05:22 09/17/17 05:22 Labs: Short CBC 09/17/17 Range/Units 05:22 WBC 11.3 H (4.3-11.1) K/mcL Hgb 12.2 (11.5-15.4) g/dL Hct 37.3 (35.3-44.9) % Plt Count 441 H (140-400) K/mcL Neutrophils # 7.9 (1.6-8.9) K/mcL BMP 09/17/17 05:22 Sodium 140 Potassium 3.9 Chloride 107 Carbon Dioxide 22 L BUN 11 Creatinine 0.72 Glucose 75 Calcium 9.1 - ABG Interpretation ABG results: PT/INR, D-dimer PT 12.3 Seconds (9.4-12.1) H 09/17/17 12:11 D-Dimer 1037 ng/mLFEU (0-500) H 09/16/17 15:42 - VTE Documentation of Mechanical Device: Intermittent pneumatic compression device Consult Discharge Plan - Plan Referrals: Loreta Prado CNP [Primary Care Provider] -
[2017-09-17 21:09] LABS: Appearance of Body Fluid Hazy (Clear); Volume of Body Fluid 16 mL
[2017-09-18] MEDS: OXYCODONE Oral CONC 10 MG/0.5 ML ORAL.SYG SL PRN (01:35)
[2017-09-18] MEDS: Ringers Solution, Lactated 1,000 ML IVC SCH (07:29)
[2017-09-18] MEDS: Nicotine 7 MG PATCH.TD24 TD SCH (07:54)
[2017-09-18 08:47] LABS: Basophils % 0.4 %; Eosinophils # 0.1 K/mcL (0.0-0.6); Eosinophils % 0.8 %; Hematocrit 32.9 % (35.3-44.9); Hemoglobin 10.9 g/dL (11.5-15.4); Immature Granulocytes % 0.5 % (0-4); Lymphocytes % 17.6 %; Mean Corpuscular HGB Conc 33.1 g/dL (31.6-35.5); Mean Corpuscular Hemoglobin 29.4 pg (28.0-33.3); Mean Corpuscular Volume 88.7 fL (83.0-100.0); Mean Platelet Volume 9.2 fL (9.4-12.4); Monocytes % 8.8 %; Neutrophils # 8.1 K/mcL (1.6-8.9); Platelet Count 430 K/mcL (140-400); Red Blood Count 3.71 M/mcL (3.82-4.97); Red Cell Distribution Width 14.6 % (11.5-14.5); Segmented Neutrophils % 71.9 %
[2017-09-18 09:02] LABS: BUN/Creatinine Ratio 15 (6-26); Blood Urea Nitrogen 11 mg/dL (6-20); Calcium 9.1 mg/dL (8.6-10.3); Carbon Dioxide 23 mEq/L (23-29); Chloride 104 mEq/L (98-107); Glucose 114 mg/dL (70-105); Osmolality,Calculated 284 (280-300); Potassium 3.6 mEq/L (3.5-5.1); Sodium 137 mEq/L (136-145); eGFR For Non-African Americans > 60 (> 60)
[2017-09-18] MEDS ORDERED: traMADol 50 MG TABLET PO ONE (11:17)
--- NOTE | 2017-09-18 13:29 | Oncology Inp Progress Note ---
Date of Encounter: 09/18/17 Time of Encounter: 13:28 (1) Lung mass Current Visit: Yes Status: Acute Assessment and plan: Patient presents with left flank pain underwent CTA and was found to have a perihilar lung mass measuring 7.2 x 6.6 cm She has an extensive history of smoking Patient status post bronchoscopy awaiting pathology Outpatient with oncologist set up Outpatient PET scan set up (2) Tobacco abuse Current Visit: Yes Status: Acute Assessment and plan: Patient educated on smoking cessation. (3) Cancer screening Current Visit: Yes Status: Acute Assessment and plan: patient was encouraged to obtain screening colonoscopy, mammogram, pap smear as she is not up to date on these follow up with PCP. Oncology: Subj Interval history: No acute events overnight. Patient tolerated bronchoscopy yesterday. This morning she denies headache, blurry vision, cough, chest pain, shortness of breath, lower extremity pain. - Constitutional Vitals: Vital Signs Temp Pulse Resp BP Pulse Ox 09/18/17 11:50 98.4 F 81 16 99/54 91 09/18/17 07:17 98.5 F 78 16 101/59 95 09/18/17 04:10 98.9 F 78 16 103/55 94 09/17/17 23:33 98.0 F 80 14 101/54 94 09/17/17 20:07 85 16 97/53 09/17/17 18:44 87 18 106/65 96 09/17/17 18:00 91 18 97/57 91 09/17/17 17:00 88 106/57 92 09/17/17 16:38 90 109/67 90 09/17/17 16:24 97.2 F L 93 26 111/54 96 09/17/17 16:14 92 24 113/54 94 09/17/17 16:04 99 26 131/64 96 09/17/17 15:54 97.4 F L 98 24 114/58 98 09/17/17 14:49 98.3 F 83 18 108/64 95 Intake and Output 09/17/17 09/18/17 09/18/17 23:59 07:59 15:59 Intake Total 240 / 240 Output Total 100 / 100 200 / 200 Balance -100 / -100 -200 / -200 240 / 240 Intake: Oral 240 / 240 Output: Urine 100 / 100 200 / 200 Other: Meal Dinner Breakfast Percent of Meal Consumed 70% 50% Weight 59.5 kg Patient Weight 09/18/17 23:59 Weight 59.5 kg - Additional findings Additional findings: General: without distress Heart: Regular rate and rhythm with no murmur Lungs: Clear to auscultation bilaterally Abdomen: Soft nontender, nondistended positive bowel sounds Skin: warm and dry, absent rash Extremities: Absent pedal edema, Neuro: Alert oriented 3 Vascular: Pedal and radial pulses 2 out of 4 Oncology: Obj Data - Labs CBC & Chem 7: 09/18/17 08:21 09/18/17 08:21 Labs: Laboratory Results - last 24 hr 09/17/17 09/18/17 09/18/17 16:01 08:21 08:21 WBC 11.3 H RBC 3.71 L Hgb 10.9 L Hct 32.9 L MCV 88.7 MCH 29.4 MCHC 33.1 RDW 14.6 H Plt Count 430 H MPV 9.2 L Immature Gran % 0.5 Seg Neutrophils % 71.9 Lymphocytes % 17.6 Monocytes % 8.8 Eosinophils % 0.8 Basophils % 0.4 Neutrophils # 8.1 Lymphocytes # 2.0 Monocytes # 1.0 Eosinophils # 0.1 Basophils # 0.0 Sodium 137 Potassium 3.6 Chloride 104 Carbon Dioxide 23 BUN 11 Creatinine 0.74 Est GFR ( Amer) > 60 Est GFR (Non-Af Amer) > 60 BUN/Creatinine Ratio 15 Glucose 114 H Calculated Osmolality 284 Calcium 9.1 Fluid Source left upper lobe BAL Fluid Volume 16 Fluid Appearance Hazy A Fluid RBC TNP Fld Tot Nucleated Cell TNP Fluid Seg Neutrophil % 71.0 Fluid Lymphocytes % 7.0 Fluid Monocytes % 2.0 Fluid Eosinophils % 1.0 Fluid Other Cells % 19.0 - Impressions Impressions Brain MRI 09/17/17 13:53 IMPRESSION: No evidence of intracranial metastatic disease. D/ / 09/17/2017 22:14:14 Jamie Nick MD / bcarter Interpreting Provider: Jamie Nick MD - ABG Interpretation ABG results: PT/INR, D-dimer PT 12.3 Seconds (9.4-12.1) H 09/17/17 12:11 D-Dimer 1037 ng/mLFEU (0-500) H 09/16/17 15:42 Consult Discharge Plan - Plan Additional Instructions: Follow-up appointments: If there is not an appointment listed below, please call your physician and schedule a follow-up appointment. If you have congestive heart failure and your symptoms return, make an appointment with your physician. Medication List: Carry an up to date list of medications you are taking at all time. We have given you an updated medication list including any new medications that you have been prescribed. Please provide that list to your primary provider Symptoms: If your condition changes or you experience any of the following symptoms, notify your physician immediately: Unusual or worsening pain, fever, persistent nausea and vomiting, bleeding, increase in swelling (especially in your legs), sudden weight gain, extreme dizziness, chest pain, increased drainage or redness from a wound or incision. Go to the emergency department if you experience a problem with breathing. Weights: If you have a history of swelling or shortness of breath, weigh yourself daily and notify your physician if you have a weight gain of two or more pounds in one day or 5 or more pounds in a week. If you experience any of the warning signs for stroke: Sudden numbness or weakness of the face, arm or leg; especially on one side of the body, sudden confusion, trouble speaking or understanding, sudden trouble seeing in one or both eyes, sudden trouble walking, dizziness, loss of balance or coordination, sudden sever headache with no cause; Call 911 or go to the emergency room. Stroke is a medical emergency. Some risk factors for stroke: Age, cigarette smoking, diabetes, excessive alcohol consumption, family history , high blood pressure, overweight, physical inactivity, prior stroke, heart attack, diagnosis of carotid artery stenosis or other artery disease. If you smoke, STOP: Smoking or tobacco use significantly increases your risk of heart and lung disease. Your chance of disease greatly increases if you continue to smoke. For more information, call the [place] tobacco quit line for smoking cessation 5 QUIT-NOW ( ) Referrals: Loreta Prado CNP [Primary Care Provider] - 09/25/17 10:30 am
--- NOTE | 2017-09-18 13:45 | Pulmonology Progress Note ---
<Wilfredo Nick - Last Filed: 09/18/17 13:43> Date of Encounter: 09/18/17 Time of Encounter: 13:43 Assessment and Plan (1) Lung mass Current Visit: Yes Status: Acute Lung mass found on CXR and CT at admission, Bronchoscopy performed yesterday Transbronchial needle aspiration, endobronchial biopsy, and bronchoalveolar lavage all perfomed Will await cytology and pathology results to tailor treatment Oncology consulted, ordered MRI brain and other routine screening Patient medically stable, ventilating and saturating appropriately on room air Patient stable for discharge and outpatient follow up (2) Acute left flank pain Current Visit: Yes Status: Acute Patient presented with flank pain attributed to diaphragmatic irritation Currently treated with lidocaine patch, pain well controlled (3) Tobacco abuse Current Visit: Yes Status: Acute Patient educated on smoking cessation Subjective Principal diagnosis: Lung mass Interval history: Patient was found to have large lung mass at admission, bronchoscopy performed yesterday Patient has no complaints today, denies chest pain or shortness of breath She is aware that we are awaiting biopsy results to tailor treatment and that she can follow outpatient Objective PUL Vital signs: Last Vital Signs Temp 98.4 F 09/18/17 11:50 Pulse 81 09/18/17 11:50 Resp 16 09/18/17 11:50 BP 99/54 09/18/17 11:50 Pulse Ox 91 09/18/17 11:50 Patient in no acute distress Alert and Oriented x 3, follows commands Heart in regular rate and rhtyhm without murmur or gallop Lungs exhibit rales in right lower lobe, otherwise clear to auscultation Abdomen soft and non tender Legs non edematous Skin warm and dry Results - Laboratory Findings CBC and BMP: 09/18/17 08:21 09/18/17 08:21 PT/INR, D-dimer PT 12.3 Seconds (9.4-12.1) H 09/17/17 12:11 D-Dimer 1037 ng/mLFEU (0-500) H 09/16/17 15:42 Abnormal lab findings: Abnormal lab results WBC 11.3 K/mcL (4.3-11.1) H 09/18/17 08:21 RBC 3.71 M/mcL (3.82-4.97) L 09/18/17 08:21 Hgb 10.9 g/dL (11.5-15.4) L 09/18/17 08:21 Hct 32.9 % (35.3-44.9) L 09/18/17 08:21 RDW 14.6 % (11.5-14.5) H 09/18/17 08:21 Plt Count 430 K/mcL (140-400) H 09/18/17 08:21 MPV 9.2 fL (9.4-12.4) L 09/18/17 08:21 PT 12.3 Seconds (9.4-12.1) H 09/17/17 12:11 D-Dimer 1037 ng/mLFEU (0-500) H 09/16/17 15:42 Glucose 114 mg/dL (70-105) H 09/18/17 08:21 Urine Ketones 15 mg/dL (Negative) H 09/16/17 15:36 Urine Bilirubin Small (Negative) H 09/16/17 15:36 Fluid Appearance Hazy (Clear) A 09/17/17 16:01 - Microbiology Findings Microbiology Findings: Microbiology, Last 48 Hours 09/17/17 16:01 Gram Stain - Final Left Upper Lobe Lung - Clinical Findings Intake & Output: Intake & Output 09/17/17 09/18/17 09/18/17 23:59 07:59 15:59 Intake Total 480 / 480 Output Total 100 / 100 200 / 200 Balance -100 / -100 -200 / -200 480 / 480 Weight 59.5 kg - VTE Documentation of Mechanical Device: Intermittent pneumatic compression device Consult Discharge Plan - Plan Additional Instructions: Follow-up appointments: If there is not an appointment listed below, please call your physician and schedule a follow-up appointment. If you have congestive heart failure and your symptoms return, make an appointment with your physician. Medication List: Carry an up to date list of medications you are taking at all time. We have given you an updated medication list including any new medications that you have been prescribed. Please provide that list to your primary provider Symptoms: If your condition changes or you experience any of the following symptoms, notify your physician immediately: Unusual or worsening pain, fever, persistent nausea and vomiting, bleeding, increase in swelling (especially in your legs), sudden weight gain, extreme dizziness, chest pain, increased drainage or redness from a wound or incision. Go to the emergency department if you experience a problem with breathing. Weights: If you have a history of swelling or shortness of breath, weigh yourself daily and notify your physician if you have a weight gain of two or more pounds in one day or 5 or more pounds in a week. If you experience any of the warning signs for stroke: Sudden numbness or weakness of the face, arm or leg; especially on one side of the body, sudden confusion, trouble speaking or understanding, sudden trouble seeing in one or both eyes, sudden trouble walking, dizziness, loss of balance or coordination, sudden sever headache with no cause; Call 911 or go to the emergency room. Stroke is a medical emergency. Some risk factors for stroke: Age, cigarette smoking, diabetes, excessive alcohol consumption, family history , high blood pressure, overweight, physical inactivity, prior stroke, heart attack, diagnosis of carotid artery stenosis or other artery disease. If you smoke, STOP: Smoking or tobacco use significantly increases your risk of heart and lung disease. Your chance of disease greatly increases if you continue to smoke. For more information, call the [place] tobacco quit line for smoking cessation 5-783- -NOW ( ) Referrals: Anna Marie Barajas MD [Partnered Physician] - 09/24/17 1:00 pm Loreta Prado CNP [Primary Care Provider] - 09/25/17 10:30 am Prescriptions: GuaiFENesin ER [Mucinex] 600 mg PO BID PRN #20 tbbp.12hr PRN Reason: Cough Lidocaine Patch [Lidoderm 5% patch] 1 each TP DAILY PRN #20 adh..patch PRN Reason: pain Nicotine Patch [Nicoderm] 7 mg TD DAILY #28 patch.td24 Tramadol HCl [Ultram] 50 mg PO BID PRN 3 Days #6 tab PRN Reason: Pain <SaadlCristino pickettal M - Last Filed: 09/18/17 15:46> Date of Encounter: 09/18/17 Objective PUL Vital signs: Last Vital Signs Temp 99.0 F 09/18/17 15:28 Pulse 82 09/18/17 15:28 Resp 16 09/18/17 15:28 BP 105/59 09/18/17 15:28 Pulse Ox 91 09/18/17 15:28 Results - Laboratory Findings CBC and BMP: 09/18/17 08:21 09/18/17 08:21 PT/INR, D-dimer PT 12.3 Seconds (9.4-12.1) H 09/17/17 12:11 D-Dimer 1037 ng/mLFEU (0-500) H 09/16/17 15:42 Abnormal lab findings: Abnormal lab results WBC 11.3 K/mcL (4.3-11.1) H 09/18/17 08:21 RBC 3.71 M/mcL (3.82-4.97) L 09/18/17 08:21 Hgb 10.9 g/dL (11.5-15.4) L 09/18/17 08:21 Hct 32.9 % (35.3-44.9) L 09/18/17 08:21 RDW 14.6 % (11.5-14.5) H 09/18/17 08:21 Plt Count 430 K/mcL (140-400) H 09/18/17 08:21 MPV 9.2 fL (9.4-12.4) L 09/18/17 08:21 PT 12.3 Seconds (9.4-12.1) H 09/17/17 12:11 D-Dimer 1037 ng/mLFEU (0-500) H 09/16/17 15:42 Glucose 114 mg/dL (70-105) H 09/18/17 08:21 Urine Ketones 15 mg/dL (Negative) H 09/16/17 15:36 Urine Bilirubin Small (Negative) H 09/16/17 15:36 Fluid Appearance Hazy (Clear) A 09/17/17 16:01 - Microbiology Findings Microbiology Findings: Microbiology, Last 48 Hours 09/17/17 16:01 Acid Fast Stain - Final Left Upper Lobe Lung 09/17/17 16:01 Gram Stain - Final Left Upper Lobe Lung - Clinical Findings Intake & Output: Intake & Output 09/17/17 09/18/17 09/18/17 23:59 07:59 15:59 Intake Total 480 / 480 Output Total 100 / 100 200 / 200 Balance -100 / -100 -200 / -200 480 / 480 Weight 59.5 kg - Attending Attestation I examined this patient and my medical decision-making was reviewed with the Resident Physician. I agree with the documented findings, disposition and treatment plan as described except to the extent set forth below. Patient seen and examined. Labs, radiology, chart personally reviewed. 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 Patient status post bronchoscopy and the result is pending. Follow up with oncology after [place] result is finalized.
[2017-09-18 15:30] VITALS: BP 105/59
--- NOTE | 2017-09-18 15:32 | Discharge Summary ---
Orders not resulted at time of discharge: Pending orders 09/17/17 16:01 AFB Culture, Respiratory [TB] Routine AFB Smear [TB] Routine Culture,Respiratory [RM] Routine Fungal Culture [MYC] Routine 09/17/17 16:02 Cytology [PTH] Routine 09/17/17 16:08 Surgical Pathology [PTH] Routine Date of Encounter: 09/18/17 Time of Encounter: 10:20 - Discharge Diagnosis (1) Lung mass Priority: Secondary Status: Acute Assessment and Plan: Left perihilar mass measuring 7.2 x 6.6 cm which encases and invades the left perihilar structures. Likely malignant Patient had bronchoscopy 09/17 for biopsy, results pending Patient was also evaluated by oncology. PET scan and follow up appointment scheduled. Obtain screening colonoscopy, mammogram, Pap smear since she is not up-to-date. Brain MRI showed no evidence of intracranial metastatic disease.. (2) Tobacco abuse Priority: Secondary Status: Chronic Assessment and Plan: Smoking cessation counseling completed by previous provider. Continue NicoDerm patches. Patient wishes to have prescription for home at discharge. (3) DVT prophylaxis Priority: Secondary Status: Acute Assessment and Plan: SCDs ordered. (4) Seizures Priority: Secondary Status: Chronic Assessment and Plan: Chronic. Well controlled. Last seizure was 4 years ago. Continue home medication. (5) Back pain Priority: Secondary Status: Acute Assessment and Plan: Pain in left mid back, acute onset. Likely secondary to lung mass. Pain well controlled with lidoderm patch. Will send pt home with rx for patches, ULtram for breakthrough pain. Qualifiers: Back pain location: thoracic back pain Chronicity: acute Back pain laterality: left Qualified Code(s): M54.6 - Pain in thoracic spine Hospital course: Ms. Garrett is a 57 year old female with past medical history of seizures, tobacco abuse. Presented to the emergency department by a history of left midback pain that was worse with inspiration and lying down. Patient was found to have a left hilar mass on x-ray and CT. Patient was admitted, bronchoscopy and biopsy were performed on 09/17. Results are pending. Patient has follow-up appointment for primary care as well as oncology in the future. Patient also has a PET scan scheduled. Her brain MRI is negative for any metastatic disease. Patient also will need to get caught up on her mammogram, colonoscopy , and Pap smear since she is not up-to-date. Patient has a mild leukocytosis that is improved, likely reactive. She is afebrile, her vitals are stable, labs are within normal limits. Her back pain is well controlled with Lidoderm patches, shortness prescription for 3 day supply of Ultram 50 mg by mouth twice daily when necessary. She has a moist sounding, and frequent cough and will be given guaifenesin. Patient is stable and appropriate for discharge. Discharge discussed with: patient - Time Spent with Patient Total time spent providing and/or coordinating discharge services: Less than 30 minutes - Discharge Medications Prescriptions: GuaiFENesin ER [Mucinex] 600 mg PO BID PRN #20 tbbp.12hr PRN Reason: Cough Lidocaine Patch [Lidoderm 5% patch] 1 each TP DAILY PRN #20 adh..patch PRN Reason: pain Nicotine Patch [Nicoderm] 7 mg TD DAILY #28 patch.td24 Tramadol HCl [Ultram] 50 mg PO BID PRN 3 Days #6 tab PRN Reason: Pain Home Medications: Omeprazole [PriLOSEC] 20 mg PO DAILY 09/16/17 [History] Phenytoin ER [Dilantin ER] 200 mg PO BID 09/16/17 [History] GuaiFENesin ER [Mucinex] 600 mg PO BID PRN #20 tbbp.12hr 09/18/17 [Rx] Lidocaine Patch [Lidoderm 5% patch] 1 each TP DAILY PRN #20 adh..patch 09/18/17 [Rx] Nicotine Patch [Nicoderm] 7 mg TD DAILY #28 patch.td24 09/18/17 [Rx] Tramadol HCl [Ultram] 50 mg PO BID PRN 3 Days #6 tab 09/18/17 [Rx] Allergies/Adverse Reactions: 3 Allergy/AdvReac Type Severity Reaction Status Date / Time No Known Allergies Allergy Verified 09/16/17 17:55 Date of admission: 09/16/17 19:36 Primary care physician: Loreta Prado CNP Discharging clinician: Aracelis Acosta Anticipated date of discharge: 09/18/17 - Constitutional Vitals: Temp Pulse Resp BP Pulse Ox 98.4 F 81 16 99/54 91 09/18/17 11:50 09/18/17 11:50 09/18/17 11:50 09/18/17 11:50 09/18/17 11:50 General appearance: Present: cooperative, mild distress, A&O X 3, pleasant, answers questions appropriately - Head Head exam: Present: atraumatic, normal inspection, normocephalic - Eye Eye exam: Present: normal appearance, conjuntiva pink, sclera anicteric - Neck Neck exam general surgery: Present: normal inspection, supple, trachea midline. Absent: lymphadenopathy, tenderness - Respiratory Respiratory exam: Present: chest wall tenderness, decreased breath sounds, CTAB. Absent: accessory muscle use, rales, respiratory distress, rhonchi, wheezes Additional comments: due to poor inspiratory effort. - Cardiovascular Cardiovascular exam: Present: RRR, +S1, +S2. Absent: diastolic murmur, gallop, rubs, systolic murmur - GI/Abdominal GI/Abdominal exam: Present: hepatomegaly, normal bowel sounds, soft. Absent: distended, tenderness - Extremities Exam Extremities exam: Present: normal capillary refill, normal inspection, warm. Absent: calf tenderness, cyanotic, pedal edema, tenderness - Neurological Exam Neurological exam: Present: alert, oriented X3, no focal deficits. Absent: facial droop, speech deficit - Skin Skin exam: Present: dry, intact, normal color, warm. Absent: rash - Patient Status Disposition: Home, Self-Care Condition: Good Functional capacity at discharge: independent ambulation Overall status at discharge: patient is progressing back to baseline - Discharge Instructions Follow Up With: Anna Marie Barajas MD [Partnered Physician] - 09/24/17 1:00 pm Loreta Prado CNP [Primary Care Provider] - 09/25/17 10:30 am Additional Instructions: Take your medications as directed REturn to the ER as needed for any other problems or concerns or if your symptoms return or worsen Follow up with PCP and oncology as scheduled. Return to your normal diet and activities as tolerated. Follow-up appointments: If there is not an appointment listed below, please call your physician and schedule a follow-up appointment. If you have congestive heart failure and your symptoms return, make an appointment with your physician. Medication List: Carry an up to date list of medications you are taking at all time. We have given you an updated medication list including any new medications that you have been prescribed. Please provide that list to your primary provider Symptoms: If your condition changes or you experience any of the following symptoms, notify your physician immediately: Unusual or worsening pain, fever, persistent nausea and vomiting, bleeding, increase in swelling (especially in your legs), sudden weight gain, extreme dizziness, chest pain, increased drainage or redness from a wound or incision. Go to the emergency department if you experience a problem with breathing. Weights: If you have a history of swelling or shortness of breath, weigh yourself daily and notify your physician if you have a weight gain of two or more pounds in one day or 5 or more pounds in a week. If you experience any of the warning signs for stroke: Sudden numbness or weakness of the face, arm or leg; especially on one side of the body, sudden confusion, trouble speaking or understanding, sudden trouble seeing in one or both eyes, sudden trouble walking, dizziness, loss of balance or coordination, sudden sever headache with no cause; Call 911 or go to the emergency room. Stroke is a medical emergency. Some risk factors for stroke: Age, cigarette smoking, diabetes, excessive alcohol consumption, family history , high blood pressure, overweight, physical inactivity, prior stroke, heart attack, diagnosis of carotid artery stenosis or other artery disease. If you smoke, STOP: Smoking or tobacco use significantly increases your risk of heart and lung disease. Your chance of disease greatly increases if you continue to smoke. For more information, call the [place] tobacco quit line for smoking cessation QUIT-NOW ( ) - Diet and Activity Activity: increase activity as tolerated Diet: advance to your usual diet - VTE Documentation of Mechanical Device: Intermittent pneumatic compression device
--- NOTE | 2017-09-18 21:06 | Electrocardiograph Report ---
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
== END 2017-09-18 16:36 | disposition home or self-care (01) ==
LOC: 3BNU 14:27 → EMEROO 14:27 → 3BNU 20:09
PROVIDERS: ADMIT Family Medicine; ATTEND Family Medicine

== ENCOUNTER 2018-04-18 16:34 | Observation (INO) ==
--- NOTE | 2018-04-18 17:38 | Emergency Department Note ---
Disposition Clinical Impression: Small cell lung cancer Community acquired pneumonia Qualifiers: Laterality: left Lung location: unspecified part of lung Qualified Code(s): J18.9 - Pneumonia, unspecified organism Disposition: Admitted As Inpatient Condition: Good Referrals: Loreta Prado CNP [Primary Care Provider] - Forms: ED Satisfaction Letter SOB HPI - General Chief Complaint: ED Shortness of Breath/Dyspnea Stated Complaint: "pneumonia",labs Time Seen by Provider: 04/18/18 17:00 Source: patient Limitations: no limitations Nursing Notes Reviewed: Yes Vital Signs Reviewed: Yes - History of Present Illness 58-year-old female with history of small cell lung carcinoma presents the em ergency department from her primary care physician's office due to shortness of breath, cough and suspected pneumonia. The patient has been chronically short of breath since her cancer diagnosis but over the past week has been progressively more fatigued and short of breath. She notes chills at home. Otherwise denies any chest pain, nausea, vomiting, diarrhea, dysuria, hematuria, abdominal pain, pain with deep inhalation. They are otherwise concerned for her Dilantin level that she has been more fatigued and confused, no recent seizures. - Related Data Home Medications Medication Instructions Recorded Confirmed Omeprazole [PriLOSEC] 20 mg PO DAILY 09/16/17 03/06/18 Phenytoin ER [Dilantin ER] 200 mg PO BID 09/16/17 03/06/18 Previous Rx's Medication Instructions Recorded Dexamethasone [Decadron] 4 mg PO BID PRN #45 tab 10/08/17 Handicap Placard 1 each .ROUTE AD #1 each 10/08/17 Magic Mouthwash [Magic Mouthwash 10 ml PO QID PRN #240 ml 10/08/17 BLM] Ondansetron [Zofran] 8 mg PO Q8HR PRN #60 tablet 10/08/17 Prochlorperazine Maleate 10 mg PO Q6HR PRN #90 tablet 02/07/18 [Compazine] levoFLOXacin [Levaquin] 750 mg PO DAILY #7 tablet 03/06/18 Allergies Allergy/AdvReac Type Severity Reaction Status Date / Time No Known Allergies Allergy Verified 03/06/18 11:23 Review of Systems: In addition to that documented in the HPI above, the additional ROS was obtained: General: Denies fever. Denies chills. Denies weight loss. Denies behavioral change. Eyes: Denies visual changes. ENT: Denies nasal congestion. Denies sore throat. Denies hearing change. Cardio: Denies chest pain. Denies palpitations. Respiratory: ADMITS cough. ADMITS shortness of breath. Denies wheezing. GI: Denies nausea, vomiting, or diarrhea. Denies hematochezia or melena. Denies abdominal pain. : Denies dysuria, hematuria, or urinary retention MSK: Denies back pain. Denies joint swelling. Neuro: Denies slurred speech. Denies numbness or tingling. Denies focal weakness. ADMITS fatigue Psych: Denies mood changes. All systems ED: reviewed and negative except as stated. Review of Systems: As Per HPI Past Medical History - Past Medical History Medical history: Reports: cancer, seizures Psychiatric history: Reports: no psych history - Social History Smoking Status: Current every day smoker Smokeless Tobacco Status: No Alcohol use: Reports: none Drug use: Reports: none Physical Exam General: Conversant. No apparent distress. Follow commands. Appears older than stated age. Alopecia. Neck: No JVD. Trachea midline. Neck supple. Eyes: PERRL. No scleral icterus. HENT: Normocephalic and atraumatic. Moist mucus membranes. Cardiovascular: Regular rate and rhythm. Normal S1 and S2. No murmurs appreciated. Normal capillary refill. Extremities well perfused with 2+ distal pulses bilaterally. No edema. Pulmonary: Rales in Left mid to lower lung field. No wheezes,or rhonchi. Not in respiratory distress. Speaks in full sentences. Abdomen: Soft, nondistended, and tontender. No bruits or masses. No guarding. Neuro: Alert and oriented x3. No slurred speech. No focal deficits noted. Skin: No rashes noted on visualized skin. Musculoskeletal: No bony abnormalities visualized. Moves all extremities. Psych: Flat affect. Makes appropriate eye contact. - General Limitations: no limitations General appearance: alert, lethargic Course Vital Signs Temperature 98.6 F 04/18/18 16:37 Pulse Rate 87 04/18/18 16:37 Respiratory Rate 15 04/18/18 16:37 Blood Pressure 100/64 04/18/18 16:37 O2 Sat by Pulse Oximetry 99 04/18/18 16:37 Temperature 98.9 F 04/18/18 17:44 Pulse Rate 82 04/18/18 17:44 Respiratory Rate 20 04/18/18 17:44 Blood Pressure 117/59 04/18/18 17:44 O2 Sat by Pulse Oximetry 100 04/18/18 17:44 Oxygen Delivery Oxygen Delivery Room Air Shortness of Breath/Dyspnea - MDM Narrative Medical decision making narrative: 58 of female with history of small cell lung carcinoma presenting with concern for pneumonia due to shortness of breath and cough. On arrival the patient's vital signs are stable. She is afebrile and not tachycardic. Did obtain CBC, BMP, chest x-ray and EKG. CBC and BMP are grossly unremarkable, no leukocytosis. Chest x-ray does show left-sided upper to lower lobe infiltrate on the left. EKG is unremarkable for acute changes. Phenytoin level is decreased therefore we will supplement the patient's nighttime dose with 400 mg phenytoin. Discussed case with on-call hospitalist Dr. Maier who agrees with plan for admission and accepts the patient to the inpatient service. Patient started on rocephin and azithromycin. Patient agrees with and understands course of treatment plan including plan for admission. All questions answered. Chest X-Ray 04/18/18 16:45 IMPRESSION: Left upper lobe mass, slightly decreased in size compared to previous imaging. New infiltrate in the upper and lower lobe adjacent to the mass. Differential considerations include postobstructive pneumonia or lymphangitic spread of tumor. Close follow-up imaging recommended. D/ / 04/18/2018 17:12:13 Rory Méndez MD / phan Interpreting Provider: Rory Méndez MD 1750 hrs: Patient has a possible infiltrate around her mass. So we will start on antibiotics and admit her. - Medical Records Medical records reviewed: Yes I reviewed the patient's medical records. - Lab Data Lab results reviewed: Yes I reviewed the patient's lab results. Result diagrams: 04/18/18 17:37 04/18/18 17:37 Lab Results 04/18/18 04/18/18 Range/Units 17:37 17:37 WBC 7.8 (4.3-11.1) K/mcL RBC 3.84 (3.82-4.97) M/mcL Hgb 12.6 (11.5-15.4) g/dL Hct 38.0 (35.3-44.9) % MCV 99.0 (83.0-100.0) fL MCH 32.8 (28.0-33.3) pg MCHC 33.2 (31.6-35.5) g/dL RDW 14.1 (11.5-14.5) % Plt Count 329 (140-400) K/mcL MPV 9.0 L (9.4-12.4) fL Immature Gran % 0.5 (0-4) % Seg Neutrophils % 78.6 % Lymphocytes % 10.7 % Monocytes % 8.8 % Eosinophils % 0.8 % Basophils % 0.6 % Neutrophils # 6.2 (1.6-8.9) K/mcL Lymphocytes # 0.8 (0.6-4.6) K/mcL Monocytes # 0.7 (0.0-1.3) K/mcL Eosinophils # 0.1 (0.0-0.6) K/mcL Basophils # 0.1 (0.0-0.2) K/mcL Sodium 137 (136-145) mEq/L Potassium 4.0 (3.5-5.1) mEq/L Chloride 103 (98-107) mEq/L Carbon Dioxide 29 (23-29) mEq/L BUN 15 (8-23) mg/dL Creatinine 0.91 (0.60-1.20) mg/dL Est GFR ( Amer) > 60 (> 60) Est GFR (Non-Af Amer) > 60 (> 60) BUN/Creatinine Ratio 16 (6-26) Glucose 95 (70-105) mg/dL Calculated Osmolality 285 (280-300) Calcium 9.6 (8.6-10.3) mg/dL Troponin I < 0.03 (< 0.04) ng/mL Phenytoin 7.8 L (10.0-20.0) mcg/mL - Radiology Data Radiology results reviewed: Yes I reviewed the patient's radiology results. Chest X-Ray 04/18/18 16:45 IMPRESSION: Left upper lobe mass, slightly decreased in size compared to previous imaging. New infiltrate in the upper and lower lobe adjacent to the mass. Differential considerations include postobstructive pneumonia or lymphangitic spread of tumor. Close follow-up imaging recommended. D/ / 04/18/2018 17:12:13 Rory Méndez MD / phan Interpreting Provider: Rory Méndez MD - EKG Data EKG attestation: Yes I reviewed and interpreted this EKG. EKG results narrative: Normal sinus rhythm rate of 87. Normal axis. DC 111, QRS 88, QTC 369, QTC 413. No evidence of ST elevations. When compared with prior from 01/04/18 there are no significant changes. Attestation Statement - Attestation Attestation: This documentation is done with the assistance of [employer] dictation. Despite efforts made to ensure accuracy, there may be inaccuracies in director of business development or spelling and typographical errors. I examined this patient and my medical decision-making was reviewed with the Resident Physician. I agree with the documented findings, disposition and treatment plan as described except to the extent set forth below. Patient seen and evaluated on arrival by Dr. Starks and myself, agree with her evaluation management plan, supervise care the patient's stay. Patient presents today from the oncology Center with pneumonia. She has a history of lung cancer. And is coming in today with cough and subjective fevers. Here in her chest x-ray she does have a pneumonia sort in a bring her into the hospital. Checking labs started on antibiotics and then admit.
[2018-04-18 17:49] LABS: Basophils # 0.1 K/mcL (0.0-0.2); Basophils % 0.6 %; Eosinophils # 0.1 K/mcL (0.0-0.6); Eosinophils % 0.8 %; Hemoglobin 12.6 g/dL (11.5-15.4); Immature Granulocytes % 0.5 % (0-4); Lymphocytes # 0.8 K/mcL (0.6-4.6); Lymphocytes % 10.7 %; Mean Corpuscular HGB Conc 33.2 g/dL (31.6-35.5); Mean Corpuscular Hemoglobin 32.8 pg (28.0-33.3); Monocytes # 0.7 K/mcL (0.0-1.3); Monocytes % 8.8 %; Neutrophils # 6.2 K/mcL (1.6-8.9); Platelet Count 329 K/mcL (140-400); Red Blood Count 3.84 M/mcL (3.82-4.97); Red Cell Distribution Width 14.1 % (11.5-14.5); Segmented Neutrophils % 78.6 %
[2018-04-18] MEDS ORDERED: Azithromycin 500 MG in D5% in Water 250 ML IVPB STA (17:56)
[2018-04-18] MEDS ORDERED: cefTRIAXone 1,000 MG in Water for inj. (sterile) 20 ML 10 ML IVP STA (17:56)
[2018-04-18 18:14] LABS: BUN/Creatinine Ratio 16 (6-26); Blood Urea Nitrogen 15 mg/dL (8-23); Calcium 9.6 mg/dL (8.6-10.3); Carbon Dioxide 29 mEq/L (23-29); Chloride 103 mEq/L (98-107); Glucose 95 mg/dL (70-105); Osmolality,Calculated 285 (280-300); Phenytoin (Dilantin) 7.8 mcg/mL (10.0-20.0); Sodium 137 mEq/L (136-145); Troponin I < 0.03 ng/mL (< 0.04); eGFR For Non-African Americans > 60 (> 60)
[2018-04-18] MEDS ORDERED: Isovue-370 500 ML BOTTLE IVP ONE (22:20)
[2018-04-18] MEDS ORDERED: Naloxone 0.4 MG/ML INJ IVP PRN (22:26)
[2018-04-18] MEDS ORDERED: Ondansetron ODT 4 MG TAB.RAPDIS SL PRN (22:26)
[2018-04-18 23:24] LABS: INR 1.1; Prothrombin Time 12.2 Seconds (9.4-12.1)
--- NOTE | 2018-04-18 23:27 | Internal Med History&Physical ---
<Jose Cutler Maximus - Last Filed: 04/19/18 00:16> Date of Encounter: 04/19/18 Internal Medicine - H&P: HPI History of present illness: Ms. Garrett is a 58 year old female Internal Medicine - H&P: Meds Omeprazole [PriLOSEC] 20 mg PO DAILY 09/16/17 [History] Phenytoin ER [Dilantin ER] 200 mg PO BID 09/16/17 [History] Ondansetron [Zofran] 8 mg PO Q8HR PRN #60 tablet 10/08/17 [Rx] Prochlorperazine Maleate [Compazine] 10 mg PO Q6HR PRN #90 tablet 02/07/18 [Rx] Mv-Mn/Folic Acid/Vit [id number] [Alive Once Daily Women 50 Plus] 1 each PO DAILY 04/18/18 [History] Allergy/AdvReac Type Severity Reaction Status Date / Time No Known Allergies Allergy Verified 03/06/18 11:23 All Systems PM: A 10-system review of systems was performed and is negative for pertinent findings except as documented above in the HPI. - Constitutional Vitals: Temp Pulse Resp BP Pulse Ox 98.4 F 77 14 104/57 97 04/18/18 20:58 04/18/18 20:58 04/18/18 20:58 04/18/18 20:58 04/18/18 20:58 Internal Med - H&P Results - Labs CBC & Chem 7: 04/18/18 17:37 04/18/18 17:37 Labs: Short CBC 04/18/18 Range/Units 17:37 WBC 7.8 (4.3-11.1) K/mcL Hgb 12.6 (11.5-15.4) g/dL Hct 38.0 (35.3-44.9) % Plt Count 329 (140-400) K/mcL Neutrophils # 6.2 (1.6-8.9) K/mcL BMP 04/18/18 17:37 Sodium 137 Potassium 4.0 Chloride 103 Carbon Dioxide 29 BUN 15 Creatinine 0.91 Glucose 95 Calcium 9.6 Cardiac Enzymes 04/18/18 Range/Units 17:37 Troponin I < 0.03 (< 0.04) ng/mL - Impressions ITS Impressions Chest X-Ray 04/18/18 16:45 IMPRESSION: Left upper lobe mass, slightly decreased in size compared to previous imaging. New infiltrate in the upper and lower lobe adjacent to the mass. Differential considerations include postobstructive pneumonia or lymphangitic spread of tumor. Close follow-up imaging recommended. D/ / 04/18/2018 17:12:13 Rory Méndez MD / phan Interpreting Provider: Rory Méndez MD Chest CT 04/18/18 22:20 IMPRESSION: No substantial change in size of left upper lobe mass with hilar extension. Progressive left lung consolidative and ground-glass airspace disease with areas of architectural distortion and traction bronchiectasis, altogether most consistent with organizing pneumonia (descriptive term for reparative lung injury due to a variety of causes, including prior treatment such as radiation therapy). Difficult to exclude superimposed disease spread or concomitant infection (i.e. Bacterial pneumonia). Longitudinal assessment will be telling. Recommend follow-up imaging in 8-12 weeks assuming clinical stability. D/ / 04/18/2018 23:26:48 Dewayne Lerner / phan Interpreting Provider: Dewayne Lerner - Time Spent With Patient Total time spent is greater than 50% in coordination of care (as documented) at patient's floor/unit and/or counseling patient: - Attending Attestation I performed a history and physical examination of the patient and discussed her management with the resident. I reviewed the resident's note and agree with the assessment and plan of care. In short patient is a 58-year-old female with a past medical history of left sided small cell lung cancer who presents the emergency department from her primary care physician's office due to shortness of breath, cough and suspected pneumonia. The patient has been chronically short of breath since her cancer diagnosis but over the past week has been progressively more fatigued and short of breath. On arrival patient was found to be afebrile, hemodynamically stable saturating in the upper 90s on room air. Laboratory workup was relatively unremarkable. CT of the chest was obtained which showed no substantial change of the left upper lobe mass. However it was difficult to exclude superimposed disease or concomitant infection. Patient was started on ceftriaxone and azithromycin for possible pneumonia. Currently stable. Follow-up blood and sputum cultures. <Lewis Moore N - Last Filed: 04/19/18 04:16> Date of Encounter: 04/19/18 Time of Encounter: 23:22 Internal Medicine - H&P: HPI Chief complaint: malaise History of present illness: Ms. Garrett is a 58 year old female with a past medical history of generalized tonic-clonic seizures and small cell lung cancer. Patient presented to the hospital today after being evaluated at her outpatient clinic where she was found to have crackles on exam. Patient states for the past week she had been increasingly tired and sleeping often having trouble staying awake. She was dilated by primary care physician who advised her to visit the emergency department for further testing and also to check her Dilantin level. In the emergency part patient's Dilantin level was found to be low. A chest x-ray was performed which redemonstrated a known left upper lobe mass that had decreased in size, however there was evidence for infiltrates above and below the mass that were concerning for underlying pneumonia versus lymphatic spread of the tumor. Lab workup in the emergency department was generally unremarkable, she is hemodynamically stable. She received Rocephin and azithromycin was admitted for further evaluation and care. On review of systems patient complains of increased cough and generalized malaise, but denies fevers, chills, chest pain and states that her SOB is at baseline. Past Med Surg Social Fam HX - Past Medical History Medical history: cancer, seizures Additional medical history: lung CA Psychiatric history: no psych history - Past Surgical History Additional surgical history: ectopic - Social History Smoking Status: Current every day smoker Packs per day: 1 Smokeless Tobacco Status: No Alcohol use: none Drug use: none - Family History Father Age at : 65 Hx Family Cardiac Disorders: Yes All Systems PM: A 10-system review of systems was performed and is negative for pertinent findings except as documented above in the HPI. - Constitutional Constitutional: malaise, no chills, no fever(s) - EENT Eyes: no change in vision Ears: no decreased hearing - Cardiovascular Cardiovascular ROS IM: no chest pain - Respiratory Respiratory: dyspnea (At baseline) - Gastrointestinal Gastrointestinal: no abdominal pain, no diarrhea, no hematochezia, no melena - Genitourinary Genitourinary: no dyspareunia, no hematuria - Integumentary Integumentary IM: no rash - Neurological Neurological ROS: no headache(s) - Psychiatric Psychiatric: no confusion - Constitutional Vitals: Temp Pulse Resp BP Pulse Ox 98.4 F 77 14 104/57 97 04/18/18 20:58 04/18/18 20:58 04/18/18 20:58 04/18/18 20:58 04/18/18 20:58 Exam: Constitutional: A&O x 3, no acute distress HEENT: head is atraumatic and normocephalic, extraocular muscles intact, PERRL, oropharynx clear, external ears and nares patent Neck: trachea midline, no jvd Chest: symmetrical chest wall rise, no murmurs Respiratory: crackles heard on left with inspiration. Right side is clear to auscultation Cardiovascular: regular rate and rythm Abdomen: soft nontender no guarding or rigidity Extremities: clubbing of upper extremities, no lower extremity edema Neurological: no obvious neurological deficit Psych: appropriate mood and affect Internal Med - H&P Results - Labs CBC & Chem 7: 04/18/18 17:37 04/18/18 17:37 Labs: Short CBC 04/18/18 Range/Units 17:37 WBC 7.8 (4.3-11.1) K/mcL Hgb 12.6 (11.5-15.4) g/dL Hct 38.0 (35.3-44.9) % Plt Count 329 (140-400) K/mcL Neutrophils # 6.2 (1.6-8.9) K/mcL BMP 04/18/18 17:37 Sodium 137 Potassium 4.0 Chloride 103 Carbon Dioxide 29 BUN 15 Creatinine 0.91 Glucose 95 Calcium 9.6 Cardiac Enzymes 04/18/18 Range/Units 17:37 Troponin I < 0.03 (< 0.04) ng/mL - Impressions ITS Impressions Chest X-Ray 04/18/18 16:45 IMPRESSION: Left upper lobe mass, slightly decreased in size compared to previous imaging. New infiltrate in the upper and lower lobe adjacent to the mass. Differential considerations include postobstructive pneumonia or lymphangitic spread of tumor. Close follow-up imaging recommended. D/ / 04/18/2018 17:12:13 Rory Méndez MD / phan Interpreting Provider: Rory Méndez MD - Assessment and Plan (1) Infiltrate noted on imaging study Current Visit: Yes Status: Acute Assessment and plan: Patient with history of SCLC presenting with a few day history of generalized malaise, cough, and baseline SOB presenting from outpatient office after e xamination findings concerning for pneumonia Patient does have crackles on exam on the left Vitals stable CXR in ED showed infiltrates concerning for possible pneumonia vs. malignant spread CT scan revealse left lung consolidation most consistent with organizing pneumonia (secondary to reparative lung injury possibly from radiation) however can not rule out superimposed pneumonia or disease spread In the ED patient received azithromycin and rocephin, no other signs for infection at the time. Will hold on continuing antibiotics at this time. Obtain repeat labs in AM blood cultures pending strep and legionella antigens pending sputum culture ordered flu swab pending Consider pulmonology or oncology consult vs. outpatient follow up (2) Small cell lung cancer Current Visit: Yes Status: Acute Assessment and plan: s/p chemo and radiation Last chemo in November 2017 CXR shows interval decrease in size of the mass Concern for postobstructive pneumonia of the left side on imaging vs. spread of disease (3) Seizures Current Visit: No Status: Chronic Assessment and plan: On dilantin Last seizure approximately 4 months ago Dilantin level subtherapeutic, received dose in ED Will continue home dose dilantin (4) DVT prophylaxis Current Visit: No Status: Acute Assessment and plan: heparin 5000u SubQ Q12H - Time Spent With Patient Total time spent is greater than 50% in coordination of care (as documented) at patient's floor/unit and/or counseling patient:
[2018-04-19 04:17] LABS: Basophils % 0.6 %; Eosinophils # 0.1 K/mcL (0.0-0.6); Eosinophils % 1.1 %; Hematocrit 35.5 % (35.3-44.9); Hemoglobin 11.6 g/dL (11.5-15.4); Immature Granulocytes % 0.5 % (0-4); Lymphocytes # 0.9 K/mcL (0.6-4.6); Lymphocytes % 14.4 %; Mean Corpuscular HGB Conc 32.7 g/dL (31.6-35.5); Mean Corpuscular Hemoglobin 32.7 pg (28.0-33.3); Mean Platelet Volume 9.1 fL (9.4-12.4); Monocytes # 0.7 K/mcL (0.0-1.3); Neutrophils # 4.5 K/mcL (1.6-8.9); Platelet Count 307 K/mcL (140-400); Red Blood Count 3.55 M/mcL (3.82-4.97); Red Cell Distribution Width 13.9 % (11.5-14.5); Segmented Neutrophils % 72.4 %
[2018-04-19 04:44] LABS: Alanine Aminotransferase 35 Units/L (7-52); Albumin 3.6 g/dL (3.5-5.7); Albumin/Globulin Ratio 1.1 (1.1-2.2); Alkaline Phosphatase 224 Units/L (34-104); Aspartate Amino Transferase 37 Units/L (13-39); BUN/Creatinine Ratio 18 (6-26); Bilirubin,Direct 0.1 mg/dL (0.0-0.2); Bilirubin,Indirect 0.1 mg/dL (0.0-1.2); Bilirubin,Total 0.2 mg/dL (0.3-1.0); Blood Urea Nitrogen 17 mg/dL (8-23); Calcium 9.2 mg/dL (8.6-10.3); Carbon Dioxide 28 mEq/L (23-29); Chloride 105 mEq/L (98-107); Globulin 3.2 g/dL (2.4-3.5); Glucose 118 mg/dL (70-105); Magnesium 1.5 mg/dL (1.6-2.6); Osmolality,Calculated 291 (280-300); Potassium 3.9 mEq/L (3.5-5.1); Sodium 139 mEq/L (136-145); Total Protein 6.8 g/dL (6.4-8.9); Troponin I < 0.03 ng/mL (< 0.04); eGFR For Non-African Americans > 60 (> 60)
[2018-04-19] MEDS: *HR* Heparin 5,000 UNIT/ML VIAL SQ SCH ×2 (05:47→18:02)
--- NOTE | 2018-04-19 09:51 | Internal Med Progress Note ---
Hospitalist Progress Note - Encounter Date of Encounter: 04/19/18 Time of Encounter: 09:51 - Subjective Interval History: 58 year old female with a past medical history of generalized tonic-clonic seizures and small cell lung cancer s/p chemo and PT in Nov last yr sent in from clinic for further eval of weakness and abnormal lung exam found with organizing PNA on CT vs developing infectious/bacterial infiltrate. Pt seen and examined at bedside. Pt still cough, sputum clear, no f/c or chest pain overnight. - Exam Vitals: Temp Pulse Resp BP Pulse Ox 98.2 F 52 15 95/60 95 04/19/18 07:27 04/19/18 07:27 04/19/18 07:27 04/19/18 07:27 04/19/18 07:27 Exam: Constitutional: A&O x 3, no acute distress HEENT: head is atraumatic and normocephalic, extraocular muscles intact, PERRL, oropharynx clear Neck: trachea midline, suppler Respiratory: faint crackles on left with inspiration. Right side is clear to auscultation Cardiovascular: regular rate and rythm, nl S1, S2 Abdomen: soft nontender no guarding or rigidity Extremities: no lower extremity edema Neurological: no focal deficits Psych: appropriate mood and affect - Summary of Assessment and Plan Summary of Assessment and Plan: Infiltrate noted on imaging study - SCLC - CT scan reveals left lung consolidation most consistent with organizing pneumonia (secondary to reparative lung injury possibly from radiation) however can not rule out superimposed pneumonia or disease spread - blood cultures pending - strep and legionella antigens neg - sputum culture pending - flu swab neg - spoke with Oncology, agree likely due to RT however recommended covering with Levaquin for now how, will see keara - f/u procalicitonin level Seizures On dilantin Last seizure approximately 4 months ago Dilantin level subtherapeutic, received dose in ED -c.w home dose dilantin DVT prophylaxis - HSQ If no further recs/intervention from Onc, can likely d/c keara in am - Time Spent with Patient Total time spent is greater than 50% in coordination of care (as documented) at patient's floor/unit and/or counseling patient: Internal Medicine: Result - Labs CBC & Chem 7: 04/19/18 03:43 04/19/18 03:43 Labs: Short CBC 04/18/18 04/19/18 Range/Units 17:37 03:43 WBC 7.8 6.2 (4.3-11.1) K/mcL Hgb 12.6 11.6 (11.5-15.4) g/dL Hct 38.0 35.5 (35.3-44.9) % Plt Count 329 307 (140-400) K/mcL Neutrophils # 6.2 4.5 (1.6-8.9) K/mcL BMP 04/18/18 04/19/18 17:37 03:43 Sodium 137 139 Potassium 4.0 3.9 Chloride 103 105 Carbon Dioxide 29 28 BUN 15 17 Creatinine 0.91 0.95 Glucose 95 118 H Calcium 9.6 9.2 Cardiac Enzymes 04/18/18 04/19/18 Range/Units 17:37 03:43 Troponin I < 0.03 < 0.03 (< 0.04) ng/mL Liver Function 04/19/18 Range/Units 03:43 Total Bilirubin 0.2 L (0.3-1.0) mg/dL Direct Bilirubin 0.1 (0.0-0.2) mg/dL AST 37 (13-39) Units/L ALT 35 (7-52) Units/L Alkaline Phosphatase 224 H (34-104) Units/L Albumin 3.6 (3.5-5.7) g/dL - ABG Interpretation ABG results: PT/INR, D-dimer PT 12.2 Seconds (9.4-12.1) H 04/18/18 22:44 - Impressions Impressions Chest X-Ray 04/18/18 16:45 IMPRESSION: Left upper lobe mass, slightly decreased in size compared to previous imaging. New infiltrate in the upper and lower lobe adjacent to the mass. Differential considerations include postobstructive pneumonia or lymphangitic spread of tumor. Close follow-up imaging recommended. D/ / 04/18/2018 17:12:13 Rory Méndez MD / phan Interpreting Provider: Rory Méndez MD Chest CT 04/18/18 22:20 IMPRESSION: No substantial change in size of left upper lobe mass with hilar extension. Progressive left lung consolidative and ground-glass airspace disease with areas of architectural distortion and traction bronchiectasis, altogether most consistent with organizing pneumonia (descriptive term for reparative lung injury due to a variety of causes, including prior treatment such as radiation therapy). Difficult to exclude superimposed disease spread or concomitant infection (i.e. Bacterial pneumonia). Longitudinal assessment will be telling. Recommend follow-up imaging in 8-12 weeks assuming clinical stability. D/ / 04/18/2018 23:26:48 Dewayne Lerner / phan Interpreting Provider: Dewayne Lerner Consult Discharge Plan - Plan Referrals: Loreta Prado CNP [Primary Care Provider] -
[2018-04-19] MEDS: levoFLOXacin 750 MG TABLET PO SCH (12:10)
[2018-04-20 05:17] LABS: Basophils % 0.5 %; Eosinophils # 0.1 K/mcL (0.0-0.6); Eosinophils % 0.7 %; Hematocrit 36.6 % (35.3-44.9); Hemoglobin 12.2 g/dL (11.5-15.4); Immature Granulocytes % 0.5 % (0-4); Lymphocytes # 0.5 K/mcL (0.6-4.6); Lymphocytes % 6.8 %; Mean Corpuscular HGB Conc 33.3 g/dL (31.6-35.5); Mean Corpuscular Hemoglobin 32.9 pg (28.0-33.3); Mean Corpuscular Volume 98.7 fL (83.0-100.0); Mean Platelet Volume 9.2 fL (9.4-12.4); Monocytes # 0.7 K/mcL (0.0-1.3); Monocytes % 8.9 %; Neutrophils # 6.2 K/mcL (1.6-8.9); Platelet Count 303 K/mcL (140-400); Red Blood Count 3.71 M/mcL (3.82-4.97); Red Cell Distribution Width 13.8 % (11.5-14.5); Segmented Neutrophils % 82.6 %
[2018-04-20 05:34] LABS: BUN/Creatinine Ratio 16 (6-26); Blood Urea Nitrogen 14 mg/dL (8-23); Calcium 9.2 mg/dL (8.6-10.3); Carbon Dioxide 27 mEq/L (23-29); Chloride 104 mEq/L (98-107); Glucose 86 mg/dL (70-105); Magnesium 1.6 mg/dL (1.6-2.6); Osmolality,Calculated 284 (280-300); Phosphorous 3.8 mg/dL (2.7-4.5); Potassium 3.9 mEq/L (3.5-5.1); Sodium 137 mEq/L (136-145); eGFR For Non-African Americans > 60 (> 60)
[2018-04-20] MEDS: *HR* Heparin 5,000 UNIT/ML VIAL SQ SCH (06:01)
--- NOTE | 2018-04-20 08:49 | Oncology Inp Consult Note ---
Date of Encounter: 04/20/18 Time of Encounter: 08:30 Assessment and Plan (1) Community acquired pneumonia Status: Acute Assessment and plan: Ms. Garrett is a very pleasant 58-year-old woman with a history of stage IIIa small cell lung carcinoma status post concurrent chemoradiotherapy completed in late November 2017. CT imaging reveals reticulonodular consolidation involving her entire left lung field. Clinically, this would appear most consistent with radiation pneumonitis given the timing in appearance. I placed her on prednisone 60 mg today. She may be discharged on 40 mg daily which will need to be tapered 10 mg weekly for the next 4 weeks. Would consider completion of a 5 day course of Levaquin as well. She is on a PPI for GI prophylaxis. She hasfollow-up with medical oncology on Saturday. We will plan for repeat CT imaging in 6-8 weeks. We will cancel imaging for the of this month. She may be discharged home for my perspective. Qualifiers: Laterality: left Lung location: unspecified part of lung Qualified Code(s): J18.9 - Pneumonia, unspecified organism (2) Small cell lung cancer Status: Acute Assessment and plan: Clinically, she appears to be in remission. I think CT findings are related to radiation therapy. Plan as I will arrange follow-up - Data of Consult Requesting Physician: Murphy Cotton Primary Care Provider: Loreta Prado CNP - Consult Narrative Reason for consult: Shortness of breath, abnormal CT History of present illness: Ms. Garrett is a pleasant 58-year-old woman who was diagnosed with limited stage (IIIa) small cell carcinoma on August, after presenting with chest pain. She was found to have a 7.2 x 6.6 cm TUYET lung mass invading the left hilum encasing the pulmonary arteries and causing bronchial compression. She received concurrent chemoradiation completing therapy 12/10/2017 and received PCI completing treatment 02/14/2018 as well. She presented to her PCP on Saturday with fatigue and SOB of one week's duration. She had chills but no fever. She has a chronic cough which is nonproductive. Fatigue has improved a bit while in the hospital. She endorses no significant shortness of breath currently. Dyspnea on exertion is minimal. The 's concern she may have had an occult seizure as her Dilantin level was subtherapeutic. However, there is no symptoms or signs consistent with seizure activity outside of fatigue. CT imaging revealed new consolidative changes throughout the left lung field concerning for organizing pneumonia. Past Med Surg Social Fam HX - Past Medical History Medical history: cancer, seizures Additional medical history: lung CA Psychiatric history: no psych history - Past Surgical History Additional surgical history: ectopic - Social History Smoking Status: Current every day smoker Packs per day: 1 Smokeless Tobacco Status: No Alcohol use: none Drug use: none - Family History Father Age at : 65 Hx Family Cardiac Disorders: Yes Medications and Allergies Omeprazole [PriLOSEC] 20 mg PO DAILY 09/16/17 [History] Phenytoin ER [Dilantin ER] 200 mg PO BID 09/16/17 [History] Ondansetron [Zofran] 8 mg PO Q8HR PRN #60 tablet 10/08/17 [Rx] Prochlorperazine Maleate [Compazine] 10 mg PO Q6HR PRN #90 tablet 02/07/18 [Rx] Mv-Mn/Folic Acid/Vit [id number] [Alive Once Daily Women 50 Plus] 1 each PO DAILY 04/18/18 [History] Allergy/AdvReac Type Severity Reaction Status Date / Time No Known Allergies Allergy Verified 03/06/18 11:23 All systems: reviewed and no additional remarkable complaints except as stated Constitutional: Present: fatigue, weakness Eyes: Present: as per HPI Ears: Present: as per HPI Nose, mouth and throat: Present: as per HPI Breasts: Present: as per HPI Cardiovascular: Present: as per HPI Respiratory: Present: dyspnea, dyspnea on exertion Gastrointestinal: Present: as per HPI Genitourinary: Present: as per HPI Menstruation: as per HPI Musculoskeletal: Present: as per HPI Neurological: Present: dizziness, weakness Endocrine: Present: as per HPI Hematologic/Lymphatic: Present: as per HPI Oncology - Exam - Constitutional General appearance: average body habitus, cooperative, no acute distress - Head Head exam: Present: atraumatic, normal inspection, normocephalic - Eye Eye exam: Present: normal appearance, conjuntiva pink, sclera anicteric - ENT ENT exam: Present: mucous membranes moist, normal oropharynx - Neck Neck exam: Present: full ROM, normal inspection - Respiratory Respiratory exam: Present: decreased breath sounds - Cardiovascular Cardiovascular exam: Present: RRR - GI/Abdominal GI/Abdominal exam: Present: normal bowel sounds, soft - Extremities Exam Extremities exam: Present: normal inspection - Back Exam Back exam: Present: normal inspection - Neurological Exam Neurological exam: Present: alert, CN II-XII intact, oriented X3, no focal deficits - Skin Skin exam: Present: normal color Oncology Inpatient Results Labs: Laboratory Results - last 24 hr 04/20/18 04/20/18 04:45 04:45 WBC 7.5 RBC 3.71 L Hgb 12.2 Hct 36.6 MCV 98.7 MCH 32.9 MCHC 33.3 RDW 13.8 Plt Count 303 MPV 9.2 L Immature Gran % 0.5 Seg Neutrophils % 82.6 Lymphocytes % 6.8 Monocytes % 8.9 Eosinophils % 0.7 Basophils % 0.5 Neutrophils # 6.2 Lymphocytes # 0.5 L Monocytes # 0.7 Eosinophils # 0.1 Basophils # 0.0 Sodium 137 Potassium 3.9 Chloride 104 Carbon Dioxide 27 BUN 14 Creatinine 0.87 Est GFR ( Amer) > 60 Est GFR (Non-Af Amer) > 60 BUN/Creatinine Ratio 16 Glucose 86 Calculated Osmolality 284 Calcium 9.2 [address] OF THE CHEST WITH CONTRAST 04/18/2018 11:07 pm FINDINGS: Mediastinum: No substantial change in mildly prominent right hilar lymph node measured around 8 mm in short axis. Left hilar lymphadenopathy/soft tissue extension of left lung mass also appears similar. Normal caliber great vessels. No filling defect within the main or branch main pulmonary arteries to suggest acute thromboembolic disease. No aortic aneurysm or dissection. Normal heart size. No pericardial effusion. Coronary calcifications present. Decompressed esophagus. Lungs/pleura: No substantial change in size of dominant left upper lobe mass containing central amorphous calcification, measuring approximately 6.4 x 5.8 cm at the level of the hilum and 6.8 cm craniocaudal. Progressive surrounding multifocal consolidative and ground-glass opacities with areas of architectural distortion and traction bronchiectasis/bronchiolectasis. Background of mild centrilobular emphysema. Central airways are clear. No pleural effusion or pneumothorax. Upper Abdomen: Unchanged left renal simple cyst. Unchanged nodular left adrenal gland thickening, favored to represent a benign adenoma. Soft Tissues/Bones: No osteolytic or osteoblastic lesion. CT/CT chest w con IMPRESSION: No substantial change in size of left upper lobe mass with hilar extension. Progressive left lung consolidative and ground-glass airspace disease with areas of architectural distortion and traction bronchiectasis, altogether most consistent with organizing pneumonia (descriptive term for reparative lung injury due to a variety of causes, including prior treatment such as radiation therapy). Difficult to exclude superimposed disease spread or concomitant infection. Longitudinal assessment will be telling. Recommend follow-up imaging in 8-12 weeks assuming clinical stability. Consult Discharge Plan - Plan Referrals: Loreta Prado CNP [Primary Care Provider] - Inpatient Charges Provider: Dr. Tristin Aj Consult - Inpatient: [id number]
[2018-04-20] MEDS ORDERED: predniSONE 20 MG TABLET PO SCH (09:00)
[2018-04-20] MEDS: levoFLOXacin 750 MG TABLET PO SCH (09:27)
[2018-04-20 10:54] VITALS: BP 94/67
--- NOTE | 2018-04-20 11:45 | Discharge Summary ---
- NOTES TO OUTPATIENT PROVIDER Notes to Outpatient Provider: PCP 2-5 days. Onc in 1 wk Orders not resulted at time of discharge: Pending orders 04/18/18 16:45 ECG 12 lead ECG [ECG] Stat 04/18/18 17:37 Culture,Blood [BC] Stat 04/18/18 23:46 Culture,Sputum with Gram Stain [RM] Routine 04/19/18 09:02 Procalcitonin Stat Date of Encounter: 04/20/18 Time of Encounter: 11:43 - Discharge Diagnosis (1) Small cell lung cancer Priority: Primary Status: Acute Hospital course: Ms. Garrett is a 58 year old female with a past medical history of generalized tonic-clonic seizures and small cell lung cancer. Patient presented to the hospital today after being evaluated at her outpatient clinic where she was found to have crackles on exam. Patient states for the past week she had been increasingly tired and sleeping often having trouble staying awake. She was dilated by primary care physician who advised her to visit the emergency department for further testing and also to check her Dilantin level. In the emergency part patient's Dilantin level was found to be low. A chest x-ray was performed which redemonstrated a known left upper lobe mass that had decreased in size, however there was evidence for infiltrates above and below the mass that were concerning for underlying pneumonia versus lymphatic spread of the tumor. Lab workup in the emergency department was generally unremarkable, she is hemodynamically stable. She received Rocephin and azithromycin was admitted for further evaluation and care. Pt was kept in the hospital and the thought it was chorni scarring from radiation induced changes. Pt is afebrile, looks well, pt is going home today with levaquine and predinasone. No other in pt work up or treament needed. - Time Spent with Patient Total time spent providing and/or coordinating discharge services: - Discharge Medications Prescriptions: New levoFLOXacin [Levaquin] 750 mg PO DAILY #7 tablet predniSONE [Prednisone] 10 mg PO DAILY #30 tab.ds.pk No Action Phenytoin ER [Dilantin ER] 200 mg PO BID Omeprazole [PriLOSEC] 20 mg PO DAILY Ondansetron [Zofran] 8 mg PO Q8HR PRN #60 tablet PRN Reason: Nausea Prochlorperazine Maleate [Compazine] 10 mg PO Q6HR PRN #90 tablet PRN Reason: Nausea Mv-Mn/Folic Acid/Vit [id number] [Alive Once Daily Women 50 Plus] 1 each PO DAILY Home Medications: Omeprazole [PriLOSEC] 20 mg PO DAILY 09/16/17 [History] Phenytoin ER [Dilantin ER] 200 mg PO BID 09/16/17 [History] Ondansetron [Zofran] 8 mg PO Q8HR PRN #60 tablet 10/08/17 [Rx] Prochlorperazine Maleate [Compazine] 10 mg PO Q6HR PRN #90 tablet 02/07/18 [Rx] Mv-Mn/Folic Acid/Vit [id number] [Alive Once Daily Women 50 Plus] 1 each PO DAILY 04/18/18 [History] levoFLOXacin [Levaquin] 750 mg PO DAILY #7 tablet 04/20/18 [Rx] predniSONE [Prednisone] 10 mg PO DAILY #30 tab.ds.pk 04/20/18 [Rx] Allergies/Adverse Reactions: Allergy/AdvReac Type Severity Reaction Status Date / Time No Known Allergies Allergy Verified 03/06/18 11:23 Date of admission: 04/18/18 19:37 Primary care physician: Loreta Prado CNP Consults: 04/19/18 09:51 Consult to Oncology [CONS] Routine Consulting Provider: [facility] Reason for Consult: Lung mass w/ Organizing PNA likely related to RT Call Completed: Yes 04/20/18 07:29 PT [Consult to Physical Therapy] [CONS] Stat Comment: Evaluate, develop and implement POC Reason for Consult: debility, safe to go home? Does patient have active BEDREST order?: No Is patient medically & hemodynamically stable?: Yes Patient assessed for mobility or mobilized this visit?: Yes - Constitutional Vitals: Temp Pulse Resp BP Pulse Ox 98.4 F 83 17 94/67 96 04/20/18 10:53 04/20/18 10:53 04/20/18 10:53 04/20/18 10:53 04/20/18 10:53 Exam: Constitutional: A&O x 3, no acute distress HEENT: head is atraumatic and normocephalic, extraocular muscles intact, PERRL, oropharynx clear Neck: trachea midline, suppler Respiratory: faint crackles on left with inspiration. Right side is clear to auscultation Cardiovascular: regular rate and rythm, nl S1, S2 Abdomen: soft nontender no guarding or rigidity Extremities: no lower extremity edema Neurological: no focal deficits Psych: appropriate mood and affect - Patient Status Disposition: Home, Self-Care Condition: Good - Discharge Instructions Follow Up With: Loreta rPado CNP [Primary Care Provider] -
--- NOTE | 2018-04-22 16:37 | Electrocardiograph Report ---
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
== END 2018-04-20 13:05 | disposition home or self-care (01) ==
LOC: EMEROOARM 16:34 → 3ANU 16:34 → SUATTDRO 19:37 → 3ANU 19:58
PROVIDERS: ADMIT Internal Medicine; ATTEND Internal Medicine

== ENCOUNTER 2018-05-10 16:10 | Inpatient (IN) ==
[2018-05-10] MEDS ORDERED: Ondansetron 4 MG/2 ML VIAL IVP ONE (17:03)
[2018-05-10] MEDS ORDERED: Isovue-370 500 ML BOTTLE IVP ONE ×2 (17:03→19:27)
--- NOTE | 2018-05-10 17:15 | Emergency Department Note ---
Disposition Clinical Impression: Productive cough Failure to thrive Qualifiers: Failure to thrive age range: in adult Qualified Code(s): R62.7 - Adult failure to thrive Nausea & vomiting Qualifiers: Vomiting type: unspecified Vomiting Intractability: unspecified Qualified Code( s): R11.2 - Nausea with vomiting, unspecified Disposition: Still a Patient Condition: Good Referrals: Loreta Prado CNP [Primary Care Provider] - Forms: ED Satisfaction Letter General Adult HPI - General Chief complaint: ED Dizziness Stated complaint: dizziness Time Seen by Provider: 05/10/18 16:23 Source: patient Mode of arrival: private vehicle Limitations: physical limitation Nursing Notes Reviewed: Yes Vital Signs Reviewed: Yes - History of Present Illness HPI Narrative: 58-year-old female history of small lung cell cancer, most recent treatment in January who presents to the ED with a complaint of nausea vomiting, unable to eat or drink as well as generalized weakness. Reports she was in the hospital and was released 2 weeks ago. Has been declining at home ever since. Reports she is on 2 different medications for nausea but persists to have this at home. She is been vomiting with any type of oral intake. She reports left flank pain that currently resolved but has been present for a few days. She is also continue to have a persistent cough with white productive sputum for the last 2 weeks. She was placed on Augmentin recently. She denies any dizziness but has felt lightheaded whenever she stands. Family states that she almost fell whenever she stood up today because she felt like she was on pass out. No other complaints. Pt Subjective Complaint: Decreased appetite, nausea, near-syncope Onset (ago): week(s) Pain Scale: 0 Improves with: nothing Worsens with: nothing Associated symptoms: Reports: nausea/vomiting. Denies: chest pain Treatments Prior to Arrival: none - Related Data Home Medications Medication Instructions Recorded Confirmed Omeprazole [PriLOSEC] 20 mg PO DAILY 09/16/17 04/22/18 Phenytoin ER [Dilantin ER] 200 mg PO BID 09/16/17 04/22/18 Mv-Mn/Folic Acid/Vit [id number] 1 each PO DAILY 04/18/18 04/22/18 [Alive Once Daily Women 50 Plus] Previous Rx's Medication Instructions Recorded Ondansetron [Zofran] 8 mg PO Q8HR PRN #60 tablet 10/08/17 Prochlorperazine Maleate 10 mg PO Q6HR PRN #90 tablet 02/07/18 [Compazine] levoFLOXacin [Levaquin] 750 mg PO DAILY #7 tablet 04/20/18 predniSONE [Prednisone] 10 mg PO DAILY #30 tab.ds.pk 04/20/18 Allergies Allergy/AdvReac Type Severity Reaction Status Date / Time No Known Allergies Allergy Verified 05/10/18 16:16 All systems ED: reviewed and negative except as stated. Constitutional: Denies: fever Cardiovascular: Denies: chest pain Respiratory: Denies: dyspnea Gastrointestinal: Reports: abdominal pain, nausea, vomiting. Denies: diarrhea Genitourinary: Denies: dysuria, hematuria Past Medical History - Past Medical History Attestation: Yes The following information was validated with the patient. Source: patient Medical history: Reports: cancer, seizures Psychiatric history: Reports: no psych history - Social History Smoking Status: Current every day smoker Smokeless Tobacco Status: No Alcohol use: Reports: none Drug use: Reports: none Physical Exam - General Limitations: no limitations General appearance: alert, in no apparent distress - Head Head exam: atraumatic, normocephalic, normal inspection - Eye Eye exam: Present: normal appearance - ENT ENT exam: normal exam - Neck Neck exam: Present: normal inspection - Chest Chest inspection: Present: normal inspection, symmetric chest wall rise - Respiratory Respiratory exam: Present: normal lung sounds bilaterally - Cardiovascular Cardiovascular exam: Present: regular rate, normal rhythm, normal heart sounds - Abdominal Exam Abdominal exam: Present: soft, Non-Tender. Absent: tenderness, distention, guarding, rigidity - Extremities Exam Extremities exam: Present: normal inspection, full ROM - Expanded Upper Extremity Exam Shoulder exam: Present: normal inspection, full ROM Arm exam: Present: normal inspection, full ROM Elbow exam: Present: normal inspection, full ROM Forearm/Wrist exam: Present: normal inspection, full ROM Hand exam: Present: normal inspection, full ROM - Expanded Lower Extremity Exam Hip/Pelvis exam: Present: normal inspection, full ROM Upper leg exam: Present: normal inspection, full ROM Knee exam: Present: normal inspection, full ROM Lower leg exam: Present: normal inspection, full ROM Ankle exam: Present: normal inspection, full ROM Foot/toe exam: Present: normal inspection, full ROM - Skin Skin exam: Present: warm, dry Course Course Narrative: Patient seen and examined. Vital signs reviewed. Plan for EKG, labs, CT imaging of the abdomen, IV fluids and antibiotics. Vital Signs Temperature 98.7 F 05/10/18 16:12 Pulse Rate 71 05/10/18 16:12 Respiratory Rate 18 05/10/18 16:12 Blood Pressure 98/62 05/10/18 16:12 O2 Sat by Pulse Oximetry 98 05/10/18 16:12 Temperature 98.7 F 05/10/18 16:12 Pulse Rate 71 05/10/18 16:12 Respiratory Rate 18 05/10/18 16:12 Blood Pressure 98/62 05/10/18 16:12 O2 Sat by Pulse Oximetry 98 05/10/18 16:12 Oxygen Delivery Oxygen Delivery Room Air Medical Decision Making - MDM Narrative Medical decision making narrative: 58-year-old female presenting with failure to thrive and intractable nausea and vomiting. Has tried multiple medications at home without success. She is cachectic here. Vitals are stable. Imaging is pending. She was given IV fluids and antiemetics. She is signed out to the car shifter team pending imaging. - Lab Data Lab results reviewed: Yes I reviewed the patient's lab results. Result diagrams: 05/10/18 17:39 05/10/18 17:39 Lab Results 05/10/18 05/10/18 05/10/18 Range/Units 17:24 17:39 17:39 WBC (4.3-11.1) K/mcL RBC (3.82-4.97) M/mcL Hgb (11.5-15.4) g/dL Hct (35.3-44.9) % MCV (83.0-100.0) fL MCH (28.0-33.3) pg MCHC (31.6-35.5) g/dL RDW (11.5-14.5) % Plt Count (140-400) K/mcL MPV (9.4-12.4) fL Immature Gran % (0-4) % Seg Neutrophils % % Lymphocytes % % Monocytes % % Eosinophils % % Basophils % % Neutrophils # (1.6-8.9) K/mcL Lymphocytes # (0.6-4.6) K/mcL Monocytes # (0.0-1.3) K/mcL Eosinophils # (0.0-0.6) K/mcL Basophils # (0.0-0.2) K/mcL PT 12.1 (9.4-12.1) Seconds INR 1.1 APTT 27.2 (26.0-36.0) Seconds Sodium (136-145) mEq/L Potassium (3.5-5.1) mEq/L Chloride (98-107) mEq/L Carbon Dioxide (23-29) mEq/L BUN (8-23) mg/dL Creatinine (0.60-1.20) mg/dL Est GFR ( Amer) (> 60) Est GFR (Non-Af Amer) (> 60) BUN/Creatinine Ratio (6-26) Glucose (70-105) mg/dL Calculated Osmolality (280-300) Lactic Acid 1.0 (0.5-2.2) mmol/L Calcium (8.6-10.3) mg/dL Total Bilirubin (0.3-1.0) mg/dL Direct Bilirubin (0.0-0.2) mg/dL Indirect Bilirubin (0.0-1.2) mg/dL AST (13-39) Units/L ALT (7-52) Units/L Alkaline Phosphatase (34-104) Units/L Troponin I (< 0.04) ng/mL Serum Total Protein (6.4-8.9) g/dL Albumin (3.5-5.7) g/dL Globulin (2.4-3.5) g/dL Albumin/Globulin Ratio (1.1-2.2) Lipase (11-82) Units/L Urine Color Dark Yellow (Yellow) Urine Clarity Clear (Clear) Urine pH 5.5 (5.0-8.0) pH Units Ur Specific [place] 1.025 (1.010-1.025) Urine Protein Trace (Neg-Trace) mg/dL Urine Glucose (UA) Normal (Normal) mg/dL Urine Ketones Trace H (Negative) mg/dL Urine Blood Negative (Negative) Urine Nitrite Negative (Negative) Urine Bilirubin Small H (Negative) Urine Urobilinogen Normal (Normal) mg/dL Ur Leukocyte Esterase Negative (Negative) Ur Culture Indicated? NO (NO) 05/10/18 05/10/18 05/10/18 Range/Units 17:39 17:39 17:39 WBC 10.8 (4.3-11.1) K/mcL RBC 3.38 L (3.82-4.97) M/mcL Hgb 11.2 L (11.5-15.4) g/dL Hct 33.0 L (35.3-44.9) % MCV 97.6 (83.0-100.0) fL MCH 33.1 (28.0-33.3) pg MCHC 33.9 (31.6-35.5) g/dL RDW 14.6 H (11.5-14.5) % Plt Count 275 (140-400) K/mcL MPV 9.4 (9.4-12.4) fL Immature Gran % 0.5 (0-4) % Seg Neutrophils % 82.7 % Lymphocytes % 8.4 % Monocytes % 6.9 % Eosinophils % 1.2 % Basophils % 0.3 % Neutrophils # 8.9 (1.6-8.9) K/mcL Lymphocytes # 0.9 (0.6-4.6) K/mcL Monocytes # 0.8 (0.0-1.3) K/mcL Eosinophils # 0.1 (0.0-0.6) K/mcL Basophils # 0.0 (0.0-0.2) K/mcL PT (9.4-12.1) Seconds INR APTT (26.0-36.0) Seconds Sodium 138 (136-145) mEq/L Potassium 4.0 (3.5-5.1) mEq/L Chloride 105 (98-107) mEq/L Carbon Dioxide 23 (23-29) mEq/L BUN 11 (8-23) mg/dL Creatinine 0.82 (0.60-1.20) mg/dL Est GFR ( Amer) > 60 (> 60) Est GFR (Non-Af Amer) > 60 (> 60) BUN/Creatinine Ratio 13 (6-26) Glucose 85 (70-105) mg/dL Calculated Osmolality 285 (280-300) Lactic Acid (0.5-2.2) mmol/L Calcium 8.8 (8.6-10.3) mg/dL Total Bilirubin 0.2 L (0.3-1.0) mg/dL Direct Bilirubin 0.0 (0.0-0.2) mg/dL Indirect Bilirubin 0.2 (0.0-1.2) mg/dL AST 12 L (13-39) Units/L ALT 7 (7-52) Units/L Alkaline Phosphatase 158 H (34-104) Units/L Troponin I < 0.03 (< 0.04) ng/mL Serum Total Protein 6.8 (6.4-8.9) g/dL Albumin 3.5 (3.5-5.7) g/dL Globulin 3.3 (2.4-3.5) g/dL Albumin/Globulin Ratio 1.1 (1.1-2.2) Lipase 17 (11-82) Units/L Urine Color (Yellow) Urine Clarity (Clear) Urine pH (5.0-8.0) pH Units Ur Specific [place] (1.010-1.025) Urine Protein (Neg-Trace) mg/dL Urine Glucose (UA) (Normal) mg/dL Urine Ketones (Negative) mg/dL Urine Blood (Negative) Urine Nitrite (Negative) Urine Bilirubin (Negative) Urine Urobilinogen (Normal) mg/dL Ur Leukocyte Esterase (Negative) Ur Culture Indicated? (NO) Attestation Statement - Attestation Attestation: I, Lasha Taylor, examined this patient and my medical decision-making was reviewed with the DATA BASE DESIGN ANALYST/PA/Advanced Practice Nurse/Resident Physician. I agree with the documented findings, disposition and treatment plan as described except to the extent set forth below. 58-year-old female brought to the emergency department for lightheadedness, near syncopal episodes. Patient states she has been unable to tolerate by mouth intake over the past 1-2 weeks. She has a history of small cell lung cancer and is status post chemotherapy and radiation therapy. Patient denies fever, hematochezia, melena. Family brought her to the emergency department for further evaluation of her difficulty with by mouth intake and her lightheadedness. +ttp of the abdomen without rebound or guarding. imaging and labs pending at this time.
[2018-05-10 17:46] LABS: Bilirubin,Urine Small (Negative); Blood,Urine Negative (Negative); Clarity,Urine Clear (Clear); Color,Urine Dark Yellow (Yellow); Glucose,Urine (UA) Normal (Normal); Ketones,Urine Trace mg/dL (Negative); Leukocyte Esterase,Urine Negative (Negative); Nitrite,Urine Negative (Negative); PH,Urine 5.5 pH Units (5.0-8.0); Protein,Urine Trace mg/dL (Neg-Trace); Specific Gravity,Urine 1.025 (1.010-1.025); Urobilinogen,Urine Normal (Normal)
[2018-05-10 18:15] LABS: Basophils % 0.3 %; Eosinophils # 0.1 K/mcL (0.0-0.6); Eosinophils % 1.2 %; Hemoglobin 11.2 g/dL (11.5-15.4); Immature Granulocytes % 0.5 % (0-4); Lymphocytes # 0.9 K/mcL (0.6-4.6); Lymphocytes % 8.4 %; Mean Corpuscular HGB Conc 33.9 g/dL (31.6-35.5); Mean Corpuscular Hemoglobin 33.1 pg (28.0-33.3); Mean Corpuscular Volume 97.6 fL (83.0-100.0); Mean Platelet Volume 9.4 fL (9.4-12.4); Monocytes # 0.8 K/mcL (0.0-1.3); Monocytes % 6.9 %; Neutrophils # 8.9 K/mcL (1.6-8.9); Platelet Count 275 K/mcL (140-400); Red Blood Count 3.38 M/mcL (3.82-4.97); Red Cell Distribution Width 14.6 % (11.5-14.5); Segmented Neutrophils % 82.7 %
[2018-05-10 18:26] LABS: INR 1.1; Prothrombin Time 12.1 Seconds (9.4-12.1)
[2018-05-10 18:29] LABS: Activated Partial Thrombo Time 27.2 Seconds (26.0-36.0)
[2018-05-10 18:36] LABS: Alanine Aminotransferase 7 Units/L (7-52); Albumin 3.5 g/dL (3.5-5.7); Albumin/Globulin Ratio 1.1 (1.1-2.2); Alkaline Phosphatase 158 Units/L (34-104); Aspartate Amino Transferase 12 Units/L (13-39); BUN/Creatinine Ratio 13 (6-26); Bilirubin,Indirect 0.2 mg/dL (0.0-1.2); Bilirubin,Total 0.2 mg/dL (0.3-1.0); Blood Urea Nitrogen 11 mg/dL (8-23); Calcium 8.8 mg/dL (8.6-10.3); Carbon Dioxide 23 mEq/L (23-29); Chloride 105 mEq/L (98-107); Globulin 3.3 g/dL (2.4-3.5); Glucose 85 mg/dL (70-105); Lipase 17 Units/L (11-82); Osmolality,Calculated 285 (280-300); Sodium 138 mEq/L (136-145); Total Protein 6.8 g/dL (6.4-8.9); eGFR For Non-African Americans > 60 (> 60)
[2018-05-10] MEDS ORDERED: Levofloxacin 750 MG/150 ML 750 MG/150 ML BAG IVPB ONE (19:07)
[2018-05-10] MEDS ORDERED: Piperacillin/Tazobactam 3.375 GM in 0.9 % Sodium Chloride Mini Bag 100 ML IVPB ONE (19:07)
[2018-05-10] MEDS: 0.9 % Sodium Chloride 1,000 ML IVC ONE (19:12)
[2018-05-10] MEDS ORDERED: *HR* Enoxaparin 60 MG/0.6 ML SYRINGE SQ STA (19:39)
--- NOTE | 2018-05-10 19:43 | Emergency Department Note ---
Disposition Clinical Impression: Failure to thrive Qualifiers: Failure to thrive age range: in adult Qualified Code(s): R62.7 - Adult failure to thrive Nausea & vomiting Qualifiers: Vomiting type: unspecified Vomiting Intractability: unspecified Qualified Code(s): R11.2 - Nausea with vomiting, unspecified Pulmonary embolus Qualifiers: Pulmonary embolism type: unspecified Chronicity: acute Acute cor pulmonale presence: without acute cor pulmonale Qualified Code(s): I26.99 - Other pulmonary embolism without acute cor pulmonale Lung cancer Qualifiers: Laterality: left Lung location: lower lobe of lung Qualified Code(s): C34.32 - Malignant neoplasm of lower lobe, left bronchus or lung Disposition: Admitted As Inpatient Condition: Good Referrals: Loreta Prado CNP [Primary Care Provider] - Forms: ED Satisfaction Letter Time of Disposition: 19:43 General Adult HPI - General Chief complaint: ED Dizziness Stated complaint: dizziness Time Seen by Provider: 05/10/18 16:23 Source: patient Mode of arrival: private vehicle Limitations: no limitations - History of Present Illness Pain Scale: 0 Improves with: nothing Worsens with: nothing Associated symptoms: Reports: nausea/vomiting. Denies: chest pain Treatments Prior to Arrival: none - Related Data Home Medications Medication Instructions Recorded Confirmed Omeprazole [PriLOSEC] 20 mg PO DAILY 09/16/17 04/22/18 Phenytoin ER [Dilantin ER] 200 mg PO BID 09/16/17 04/22/18 Mv-Mn/Folic Acid/Vit [id number] 1 each PO DAILY 04/18/18 04/22/18 [Alive Once Daily Women 50 Plus] Previous Rx's Medication Instructions Recorded Ondansetron [Zofran] 8 mg PO Q8HR PRN #60 tablet 10/08/17 Prochlorperazine Maleate 10 mg PO Q6HR PRN #90 tablet 02/07/18 [Compazine] levoFLOXacin [Levaquin] 750 mg PO DAILY #7 tablet 04/20/18 predniSONE [Prednisone] 10 mg PO DAILY #30 tab.ds.pk 04/20/18 Allergies Allergy/AdvReac Type Severity Reaction Status Date / Time No Known Allergies Allergy Verified 05/10/18 16:16 Constitutional: Denies: fever Cardiovascular: Denies: chest pain Respiratory: Denies: dyspnea Gastrointestinal: Reports: abdominal pain, nausea, vomiting. Denies: diarrhea Genitourinary: Denies: dysuria, hematuria Past Medical History - Past Medical History Medical history: Reports: cancer, seizures Psychiatric history: Reports: no psych history - Social History Smoking Status: Current every day smoker Smokeless Tobacco Status: No Alcohol use: Reports: none Drug use: Reports: none Physical Exam - General Limitations: no limitations General appearance: alert, in no apparent distress Course - Reevaluation(s) Reevaluation #1: accepted sign out from Dr. Dean and Brandon and the plan is to folowup on the CT scans and then admit. HCAP therapy has been given. Time: 19:41 - Consultations Consultation #1: discussed case with Dr. Aj and he would recommedn herapy with lovenox insgtead of heparin. In addition secondary to her type of lung mass is it unlikely that she will bleed from this therapy with it. Time: 19:42 Consultation #2: dsicussed case with Dr. douglass who has accepted patient ot medicine. Patinet and family are agreeabkle to plan Time: 20:25 Vital Signs Temperature 98.7 F 05/10/18 16:12 Pulse Rate 71 05/10/18 16:12 Respiratory Rate 18 05/10/18 16:12 Blood Pressure 98/62 05/10/18 16:12 O2 Sat by Pulse Oximetry 98 05/10/18 16:12 Temperature 98.7 F 05/10/18 16:12 Pulse Rate 71 05/10/18 16:12 Respiratory Rate 18 05/10/18 16:12 Blood Pressure 98/62 05/10/18 16:12 O2 Sat by Pulse Oximetry 98 05/10/18 16:12 Oxygen Delivery Oxygen Delivery Room Air Medical Decision Making - Lab Data Result diagrams: 05/10/18 17:39 05/10/18 17:39 Lab Results 05/10/18 05/10/18 05/10/18 Range/Units 17:24 17:39 17:39 WBC (4.3-11.1) K/mcL RBC (3.82-4.97) M/mcL Hgb (11.5-15.4) g/dL Hct (35.3-44.9) % MCV (83.0-100.0) fL MCH (28.0-33.3) pg MCHC (31.6-35.5) g/dL RDW (11.5-14.5) % Plt Count (140-400) K/mcL MPV (9.4-12.4) fL Immature Gran % (0-4) % Seg Neutrophils % % Lymphocytes % % Monocytes % % Eosinophils % % Basophils % % Neutrophils # (1.6-8.9) K/mcL Lymphocytes # (0.6-4.6) K/mcL Monocytes # (0.0-1.3) K/mcL Eosinophils # (0.0-0.6) K/mcL Basophils # (0.0-0.2) K/mcL PT 12.1 (9.4-12.1) Seconds INR 1.1 APTT 27.2 (26.0-36.0) Seconds Sodium (136-145) mEq/L Potassium (3.5-5.1) mEq/L Chloride (98-107) mEq/L Carbon Dioxide (23-29) mEq/L BUN (8-23) mg/dL Creatinine (0.60-1.20) mg/dL Est GFR ( Amer) (> 60) Est GFR (Non-Af Amer) (> 60) BUN/Creatinine Ratio (6-26) Glucose (70-105) mg/dL Calculated Osmolality (280-300) Lactic Acid 1.0 (0.5-2.2) mmol/L Calcium (8.6-10.3) mg/dL Total Bilirubin (0.3-1.0) mg/dL Direct Bilirubin (0.0-0.2) mg/dL Indirect Bilirubin (0.0-1.2) mg/dL AST (13-39) Units/L ALT (7-52) Units/L Alkaline Phosphatase (34-104) Units/L Troponin I (< 0.04) ng/mL Serum Total Protein (6.4-8.9) g/dL Albumin (3.5-5.7) g/dL Globulin (2.4-3.5) g/dL Albumin/Globulin Ratio (1.1-2.2) Lipase (11-82) Units/L Urine Color Dark Yellow (Yellow) Urine Clarity Clear (Clear) Urine pH 5.5 (5.0-8.0) pH Units Ur Specific [place] 1.025 (1.010-1.025) Urine Protein Trace (Neg-Trace) mg/dL Urine Glucose (UA) Normal (Normal) mg/dL Urine Ketones Trace H (Negative) mg/dL Urine Blood Negative (Negative) Urine Nitrite Negative (Negative) Urine Bilirubin Small H (Negative) Urine Urobilinogen Normal (Normal) mg/dL Ur Leukocyte Esterase Negative (Negative) Ur Culture Indicated? NO (NO) 05/10/18 05/10/18 05/10/18 Range/Units 17:39 17:39 17:39 WBC 10.8 (4.3-11.1) K/mcL RBC 3.38 L (3.82-4.97) M/mcL Hgb 11.2 L (11.5-15.4) g/dL Hct 33.0 L (35.3-44.9) % MCV 97.6 (83.0-100.0) fL MCH 33.1 (28.0-33.3) pg MCHC 33.9 (31.6-35.5) g/dL RDW 14.6 H (11.5-14.5) % Plt Count 275 (140-400) K/mcL MPV 9.4 (9.4-12.4) fL Immature Gran % 0.5 (0-4) % Seg Neutrophils % 82.7 % Lymphocytes % 8.4 % Monocytes % 6.9 % Eosinophils % 1.2 % Basophils % 0.3 % Neutrophils # 8.9 (1.6-8.9) K/mcL Lymphocytes # 0.9 (0.6-4.6) K/mcL Monocytes # 0.8 (0.0-1.3) K/mcL Eosinophils # 0.1 (0.0-0.6) K/mcL Basophils # 0.0 (0.0-0.2) K/mcL PT (9.4-12.1) Seconds INR APTT (26.0-36.0) Seconds Sodium 138 (136-145) mEq/L Potassium 4.0 (3.5-5.1) mEq/L Chloride 105 (98-107) mEq/L Carbon Dioxide 23 (23-29) mEq/L BUN 11 (8-23) mg/dL Creatinine 0.82 (0.60-1.20) mg/dL Est GFR ( Amer) > 60 (> 60) Est GFR (Non-Af Amer) > 60 (> 60) BUN/Creatinine Ratio 13 (6-26) Glucose 85 (70-105) mg/dL Calculated Osmolality 285 (280-300) Lactic Acid (0.5-2.2) mmol/L Calcium 8.8 (8.6-10.3) mg/dL Total Bilirubin 0.2 L (0.3-1.0) mg/dL Direct Bilirubin 0.0 (0.0-0.2) mg/dL Indirect Bilirubin 0.2 (0.0-1.2) mg/dL AST 12 L (13-39) Units/L ALT 7 (7-52) Units/L Alkaline Phosphatase 158 H (34-104) Units/L Troponin I < 0.03 (< 0.04) ng/mL Serum Total Protein 6.8 (6.4-8.9) g/dL Albumin 3.5 (3.5-5.7) g/dL Globulin 3.3 (2.4-3.5) g/dL Albumin/Globulin Ratio 1.1 (1.1-2.2) Lipase 17 (11-82) Units/L Urine Color (Yellow) Urine Clarity (Clear) Urine pH (5.0-8.0) pH Units Ur Specific [place] (1.010-1.025) Urine Protein (Neg-Trace) mg/dL Urine Glucose (UA) (Normal) mg/dL Urine Ketones (Negative) mg/dL Urine Blood (Negative) Urine Nitrite (Negative) Urine Bilirubin (Negative) Urine Urobilinogen (Normal) mg/dL Ur Leukocyte Esterase (Negative) Ur Culture Indicated? (NO)
[2018-05-11] MEDS ORDERED: Naloxone 0.4 MG/ML INJ IVP PRN (02:34)
[2018-05-11] MEDS ORDERED: *HR* OxyCODONE Immed Rel 5 MG TABLET PO PRN (04:02)
[2018-05-11] MEDS ORDERED: *HR* HYDROcodone/Acet 5/325 mg TABLET PO PRN (04:02)
[2018-05-11] MEDS: Ondansetron 4 MG/2 ML VIAL IVP PRN ×2 (04:30→16:17)
[2018-05-11] MEDS: Ibuprofen 400 MG TABLET PO PRN ×2 (04:31→15:43)
--- NOTE | 2018-05-11 06:41 | Internal Med History&Physical ---
Date of Encounter: 05/11/18 Time of Encounter: 06:00 Internal Medicine - H&P: HPI Chief complaint: Pulmonary embolism Admitted From: Emergency Dept Plans for Post Hospital Care: Home History of present illness: Ms. Garrett is a 58 year old female Patient presented to the emergency room with weakness. She was last in the hospital about 3 weeks ago she was treated for pneumonia and discharged on April 20. She was discharged on Levaquin as well as prednisone. Since that time she says that she had never really improved. She has felt nauseous, but this is her baseline. She vomited a few times as well. She has had a consistent cough since her discharge productive of white sputum. Family was with the patient in the emergency room said that she had been dizzy as well. In the emergency room patient's vital signs were within normal limits. CBC and BMP were also within normal limits. Patient's initial troponin was less than 0.03. Her INR was 1.1. A urinalysis was performed and was negative for infection. An abdomen and pelvis CT scan was performed as well as a CT angiogram of the chest that revealed multiple findings, which are listed below. Most notably patient has a right-sided pulmonary embolism as well as enlargement of the left upper lobe mass there is also groundglass opacities throughout the left lung and multifocal consolidative opacities as well worsening concerns for multifocal pneumonia. Blood cultures were drawn, she was started on Levaquin, Zosyn, and vancomycin. Due to her history of lung cancer, the emergency department contacted oncologist Dr. Aj who recommended Lovenox therapy instead of heparin. A consult was placed for oncology. She was then sent to the medical floor for further management. Upon my evaluation, patient is resting comfortably in the hospital bed. She states that she feels better. She denies chest pain, abdominal pain, diarrhea, chest pain and vomiting. She confirms the history above, stating that she is nauseous all the time. She feels most dizzy when she looks up or stands up from a sitting position. She is a current smoker. She is a full code. Past Med Surg Social Fam HX - Past Medical History Medical history: cancer, seizures Additional medical history: small cell lung cancer, Psychiatric history: no psych history - Past Surgical History Additional surgical history: D & C - Social History Smoking Status: Current every day smoker Smokeless Tobacco Status: No Alcohol use: none Drug use: none - Family History Father Hx Family Cardiac Disorders: Yes Internal Medicine - H&P: Meds Omeprazole [PriLOSEC] 20 mg PO DAILY 09/16/17 [History] Phenytoin ER [Dilantin ER] 300 mg PO BID 09/16/17 [History] Ondansetron [Zofran] 8 mg PO Q8HR PRN #60 tablet 10/08/17 [Rx] Prochlorperazine Maleate [Compazine] 10 mg PO Q6HR PRN #90 tablet 02/07/18 [Rx] Mv-Mn/Folic Acid/Vit [id number] [Alive Once Daily Women 50 Plus] 1 each PO DAILY 04/18/18 [History] levoFLOXacin [Levaquin] 750 mg PO DAILY #7 tablet 04/20/18 [Rx] predniSONE [Prednisone] 10 mg PO DAILY #30 tab.ds.pk 04/20/18 [Rx] Allergy/AdvReac Type Severity Reaction Status Date / Time No Known Allergies Allergy Verified 05/10/18 16:16 All Systems PM: A 10-system review of systems was performed and is negative for pertinent findings except as documented above in the HPI. - Constitutional Vitals: Temp Pulse Resp BP Pulse Ox 98.9 F 61 16 97/52 95 05/11/18 03:10 05/11/18 03:10 05/11/18 03:10 05/11/18 03:10 05/11/18 03:10 General appearance: Present: cooperative, A&O X 3, pleasant, no acute distress, answers questions appropriately. Absent: disheveled Exam: - - Head Head exam: Present: normal inspection - Eye Eye exam: Present: EOMI, normal appearance - Neck Neck exam general surgery: Present: full ROM - Respiratory Respiratory exam: Present: rales. Absent: accessory muscle use, decreased breath sounds, CTAB, respiratory distress, wheezes - Cardiovascular Cardiovascular exam: Present: RRR. Absent: diastolic murmur, systolic murmur - GI/Abdominal GI/Abdominal exam: Present: normal bowel sounds, soft. Absent: tenderness - Extremities Exam Extremities exam: Present: warm, radial pulses palpable and symmetrical. Absent: pedal edema, tenderness - Neurological Exam Neurological exam: Present: no focal deficits, strengths equal and symetr throughout. Absent: motor sensory deficit, facial droop, speech deficit - Skin Skin exam: Present: dry, normal color, warm Internal Med - H&P Results - Labs CBC & Chem 7: 05/10/18 17:39 05/10/18 17:39 Labs: Short CBC 05/10/18 Range/Units 17:39 WBC 10.8 (4.3-11.1) K/mcL Hgb 11.2 L (11.5-15.4) g/dL Hct 33.0 L (35.3-44.9) % Plt Count 275 (140-400) K/mcL Neutrophils # 8.9 (1.6-8.9) K/mcL BMP 05/10/18 17:39 Sodium 138 Potassium 4.0 Chloride 105 Carbon Dioxide 23 BUN 11 Creatinine 0.82 Glucose 85 Calcium 8.8 Cardiac Enzymes 05/10/18 Range/Units 17:39 Troponin I < 0.03 (< 0.04) ng/mL Liver Function 05/10/18 Range/Units 17:39 Total Bilirubin 0.2 L (0.3-1.0) mg/dL Direct Bilirubin 0.0 (0.0-0.2) mg/dL AST 12 L (13-39) Units/L ALT 7 (7-52) Units/L Alkaline Phosphatase 158 H (34-104) Units/L Albumin 3.5 (3.5-5.7) g/dL Urine 05/10/18 Range/Units 17:24 Urine Color Dark Yellow (Yellow) Urine Clarity Clear (Clear) Urine pH 5.5 (5.0-8.0) pH Units Ur Specific [place] 1.025 (1.010-1.025) Urine Protein Trace (Neg-Trace) mg/dL Urine Glucose (UA) Normal (Normal) mg/dL - Impressions ITS Impressions Chest X-Ray 05/10/18 17:00 IMPRESSION: Stable left lung mass and the surrounding irregular opacities. No interval change. D/ / 05/10/2018 17:33:54 River Bryant MD / noris Interpreting Provider: River Bryant MD Abdomen/Pelvis CT 05/10/18 17:03 IMPRESSION: 1. Filling defect in the right lower lobar pulmonary arterial vasculature consistent with pulmonary embolus. 2. Low density in association with the partially visualized known inferior left upper lobe mass likely representing necrosis within the patient's primary malignancy/mass lesion. 3. Small left-sided pleural effusion. 4. Left lower lobe and lingula consolidative and ground-glass opacities with associated bronchiectasis. Findings could represent organizing pneumonia with lymphangitic spread of tumor difficult to entirely exclude. 5. Stable wall thickening at the GE junction. 6. Stable left lower pole left-sided parapelvic cyst measuring 2.3 cm. 7. Stable 1.2 cm left adrenal nodule likely an adrenal adenoma. 8. Apparent wall thickening of the stomach could be related to incomplete distention. 9. Fluid throughout the visualized colonic segments can be seen with diarrheal disease. 10. Small fat containing bilateral inguinal hernias. 11. Circumferential atherosclerotic calcification and atheromatous plaque of the abdominal aorta and branch vasculature. Critical results were called by Dr. Gabriel Lal MD to Dr. Kirby On 05/10/2018 at 19:24. D/ / 05/10/2018 19:38:18 Gabriel Lal MD / aspen Interpreting Provider: Gabriel Lal MD Chest CTA 05/10/18 19:27 IMPRESSION: 1. Right-sided pulmonary emboli as detailed above. 2. Slight enlargement of left upper lobe mass with low-attenuation and calcification since the prior study. There may be mild necrosis within the left upper lobe mass given the low attenuation. Increasing ground-glass opacity throughout the left lung superimposed on areas of multifocal consolidative and ground-glass opacity with architectural distortion and traction bronchiectasis since the prior exam raises concern for worsening multifocal pneumonia and/or worsening lymphangitic spread of tumor. 3. Stable 1.2 cm probable left adrenal adenoma. 4. Stable wall thickening of the GE junction. Stable wall thickening of the stomach which could be related to incomplete distention. 5. Mild underlying emphysema. 6. Right-sided pulmonary nodules measuring up to 5 mm. 7. Small left-sided pleural effusion. 8. Coronary artery disease. D/ / 05/10/2018 20:33:37 Gabriel Lal MD / aspen Interpreting Provider: Gabriel Lal MD - Assessment and Plan (1) Pulmonary embolus Current Visit: Yes Status: Acute Assessment and plan: As noted on CT angiogram. Patient was given Lovenox in the emergency room, as recommended by oncology. Continue Lovenox twice a day Will need long-term anticoagulation at discharge Qualifiers: Pulmonary embolism type: unspecified Chronicity: acute Acute cor pulmonale presence: without acute cor pulmonale Qualified Code(s): I26.99 - Other pulmonary embolism without acute cor pulmonale (2) Multifocal lung consolidation Current Visit: Yes Status: Acute Assessment and plan: Blood cultures drawn in the emergency room, patient was started on Levaquin, vancomycin and Zosyn. Patient does not meet sepsis criteria. Follow-up blood cultures Continue antibiotics Monitor for worsening signs of infection (3) Lung mass Current Visit: No Status: Acute Assessment and plan: CT of chest shows worsening lung mass. Oncology was called from the emergency room. Follow-up oncology recommendations Treating for PE and pneumonia as above. (4) History of seizures Current Visit: Yes Status: Acute Assessment and plan: Continue home meds (5) DVT prophylaxis Current Visit: No Status: Acute Assessment and plan: Lovenox twice a day for PE (6) Tobacco abuse Current Visit: No Status: Chronic Assessment and plan: Nicotine patch as needed - Time Spent With Patient Total time spent is greater than 50% in coordination of care (as documented) at patient's floor/unit and/or counseling patient: Greater than 35 minutes
[2018-05-11] MEDS ORDERED: Nicotine 21 MG PATCH.TD24 TD PRN (07:00)
[2018-05-11 07:12] LABS: Hematocrit 29.5 % (35.3-44.9); Hemoglobin 9.9 g/dL (11.5-15.4); Mean Corpuscular HGB Conc 33.6 g/dL (31.6-35.5); Mean Corpuscular Hemoglobin 32.4 pg (28.0-33.3); Mean Corpuscular Volume 96.4 fL (83.0-100.0); Mean Platelet Volume 9.8 fL (9.4-12.4); Platelet Count 242 K/mcL (140-400); Red Blood Count 3.06 M/mcL (3.82-4.97); Red Cell Distribution Width 14.7 % (11.5-14.5)
[2018-05-11 07:21] LABS: INR 1.3; Prothrombin Time 14.1 Seconds (9.4-12.1)
[2018-05-11 07:32] LABS: Alanine Aminotransferase 6 Units/L (7-52); Albumin/Globulin Ratio 1.1 (1.1-2.2); Alkaline Phosphatase 133 Units/L (34-104); Aspartate Amino Transferase 10 Units/L (13-39); BUN/Creatinine Ratio 13 (6-26); Bilirubin,Total 0.3 mg/dL (0.3-1.0); Blood Urea Nitrogen 10 mg/dL (8-23); Calcium 8.3 mg/dL (8.6-10.3); Carbon Dioxide 22 mEq/L (23-29); Chloride 109 mEq/L (98-107); Globulin 2.8 g/dL (2.4-3.5); Glucose 95 mg/dL (70-105); Osmolality,Calculated 287 (280-300); Potassium 3.7 mEq/L (3.5-5.1); Sodium 139 mEq/L (136-145); Total Protein 5.8 g/dL (6.4-8.9); eGFR For Non-African Americans > 60 (> 60)
[2018-05-11] MEDS: Piperacillin/Tazobactam 3.375 GM in 0.9 % Sodium Chloride Mini Bag 100 ML IVPB SCH ×3 (08:04→23:39)
[2018-05-11] MEDS: *HR* Enoxaparin 60 MG/0.6 ML SYRINGE SQ SCH ×2 (08:05→18:07)
[2018-05-11] MEDS ORDERED: 0.9 % Sodium Chloride 1,000 ML ONE (11:04)
--- NOTE | 2018-05-11 11:38 | Event Note ---
Date of Encounter: 05/11/18 Time of Encounter: 11:36 Patient's blood pressure has been low this morning. Ordered a bolus of normal saline. Continue to monitor blood pressure closely. Monitor input and output. Check lactic acid level. Continue antibiotics and subcutaneous Lovenox. Patient's hemoglobin 9.9 today. Could be dilutional. Will check stool for occult blood. Continue to monitor hemoglobin levels closely. Patient has high risk for complications.
[2018-05-11] MEDS: 0.9 % Sodium Chloride 1,000 ML IVC ONE (12:10)
[2018-05-11 12:11] LABS: Hematocrit 29.5 % (35.3-44.9); Hemoglobin 9.8 g/dL (11.5-15.4)
[2018-05-11] MEDS: Ringers Solution, Lactated 1,000 ML IVC SCH ×2 (12:13→20:08)
--- NOTE | 2018-05-11 12:21 | Oncology Inp Consult Note ---
Date of Encounter: 05/11/18 Time of Encounter: 13:15 Assessment and Plan (1) Infiltrate noted on imaging study Status: Acute Assessment and plan: This may represent an organizing pneumonia but also may represent radiation pneumonitis. The time would be consistent with such. I recommended initiation of prednisone 60 mg daily with a slow taper over the course of 4-6 weeks. I agree with broad-spectrum antimicrobials as prescribed by the primary team. (2) Pulmonary embolus Status: Acute Assessment and plan: Patient has a right sided pulmonary embolism. I recommended duplex Doppler the bilateral lower extremities for baseline. I recommended Lovenox 60 mg every 12 hours which has been instituted. This can be transitioned to Xarelto 15 mg twice a day 21 days to be followed by 20 mg a day thereafter. Please obtain social work evaluation for medication coverage. Xarelto is considered equivalent to low molecular weight heparin in those with malignancy. Qualifiers: Pulmonary embolism type: unspecified Chronicity: acute Acute cor pulmonale presence: without acute cor pulmonale Qualified Code(s): I26.99 - Other pulmonary embolism without acute cor pulmonale (3) Lung cancer Status: Acute Assessment and plan: Changes noted in the left lung mass. This may be evolution of treatment changes. I recommend close follow-up CT imaging in approximately 8 weeks' time for further evaluation. If further enlargement continues, PET/CT imaging will be indicated. She does have a headache with nausea and emesis. She received PCI in the past. I have ordered MRI the brain with IV contrast to evaluate for metastatic disease. Qualifiers: Laterality: left Lung location: lower lobe of lung Qualified Code(s): C34.32 - Malignant neoplasm of lower lobe, left bronchus or lung - Data of Consult Requesting Physician: Antoine Snow MD Primary Care Provider: Loreta Prado CNP - Consult Narrative Reason for consult: New PE, history of small cell lung cancer History of present illness: Ms. Garrett's a very pleasant 4-year-old woman who is under the care of my partner, Dr. 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 Patient has completed a course of concurrent chemoradiotherapy November 2017. This was followed by PCI in January 2018. She was recently hospitalized for pneumonia/pneumonitis which was managed with a course of Levaquin as well as prednisone taper. Since that hospitalization, she states that she has never felt back to her old self. Patient has had a persistent productive cough since discharge. No fever, chill or symptom of infection. In addition, she has been weak and fatigued. CT scan of chest the emergency department revealed a right- sided pulmonary embolism. There is slight enlargement left upper lobe lung mass with associated calcification. Stable 1.2 cm left adrenal lesion consistent with adenoma. Stable wall thickening GE junction. Nonspecific right-sided pulmonary nodules measuring 5 mm. Small left pleural effusion. Today, she is feeling a bit better. Still with cough and dyspnea on exertion. This is worsened since her hospital discharge. No fever or chill. Cough is productive of white sputum or is nonproductive. She has developed increasing headache with associated nausea. She did move her bowels this morning but has been constipated. She is been placed on broad-spectrum antibiotics Past Med Surg Social Fam HX - Past Medical History Medical history: cancer, seizures Additional medical history: small cell lung cancer, Psychiatric history: no psych history - Past Surgical History Additional surgical history: D & C - Social History Smoking Status: Current every day smoker Smokeless Tobacco Status: No Alcohol use: none Drug use: none - Family History Father Hx Family Cardiac Disorders: Yes Medications and Allergies Omeprazole [PriLOSEC] 20 mg PO DAILY 09/16/17 [History] Phenytoin ER [Dilantin ER] 300 mg PO BID 09/16/17 [History] Ondansetron [Zofran] 8 mg PO Q8HR PRN #60 tablet 10/08/17 [Rx] Prochlorperazine Maleate [Compazine] 10 mg PO Q6HR PRN #90 tablet 02/07/18 [Rx] Mv-Mn/Folic Acid/Vit [id number] [Alive Once Daily Women 50 Plus] 1 each PO DAILY 04/18/18 [History] levoFLOXacin [Levaquin] 750 mg PO DAILY #7 tablet 04/20/18 [Rx] predniSONE [Prednisone] 10 mg PO DAILY #30 tab.ds.pk 04/20/18 [Rx] Allergy/AdvReac Type Severity Reaction Status Date / Time No Known Allergies Allergy Verified 05/10/18 16:16 All systems: reviewed and no additional remarkable complaints except as stated Constitutional: Present: anorexia, lethargy Eyes: Present: as per HPI Ears: Present: as per HPI Nose, mouth and throat: Present: as per HPI Cardiovascular: Present: dyspnea on exertion Respiratory: Present: cough, dyspnea on exertion Gastrointestinal: Present: loose stools (this AM. Constipated prior) Genitourinary: Present: as per HPI Menstruation: as per HPI Musculoskeletal: Present: as per HPI Neurological: Present: headache(s) Oncology - Exam - Constitutional General appearance: average body habitus, cooperative, mild distress - Head Head exam: Present: atraumatic, normal inspection, normocephalic - Eye Eye exam: Present: normal appearance, conjuntiva pink, sclera anicteric - ENT ENT exam: Present: mucous membranes moist, normal oropharynx - Neck Neck exam: Present: full ROM, normal inspection - Respiratory Respiratory exam: Present: decreased breath sounds - Cardiovascular Cardiovascular exam: Present: RRR - GI/Abdominal GI/Abdominal exam: Present: normal bowel sounds, soft - Extremities Exam Extremities exam: Present: normal inspection, pedal edema - Back Exam Back exam: Present: normal inspection - Neurological Exam Neurological exam: Present: alert, CN II-XII intact, no focal deficits Oncology Inpatient Results Labs: Laboratory Results - last 24 hr 05/10/18 05/10/18 05/10/18 17:24 17:39 17:39 WBC RBC Hgb Hct MCV MCH MCHC RDW Plt Count MPV Immature Gran % Seg Neutrophils % Lymphocytes % Monocytes % Eosinophils % Basophils % Neutrophils # Lymphocytes # Monocytes # Eosinophils # Basophils # PT 12.1 INR 1.1 APTT 27.2 Sodium Potassium Chloride Carbon Dioxide BUN Creatinine Est GFR ( Amer) Est GFR (Non-Af Amer) BUN/Creatinine Ratio Glucose Calculated Osmolality Lactic Acid 1.0 Calcium Total Bilirubin Direct Bilirubin Indirect Bilirubin AST ALT Alkaline Phosphatase Troponin I Serum Total Protein Albumin Globulin Albumin/Globulin Ratio Lipase Urine Color Dark Yellow Urine Clarity Clear Urine pH 5.5 Ur Specific [place] 1.025 Urine Protein Trace Urine Glucose (UA) Normal Urine Ketones Trace H Urine Blood Negative Urine Nitrite Negative Urine Bilirubin Small H Urine Urobilinogen Normal Ur Leukocyte Esterase Negative Ur Culture Indicated? NO Nasal Screen MRSA (PCR) Stool Occult Blood Specimen Rejected 05/10/18 05/10/18 05/10/18 17:39 17:39 17:39 WBC 10.8 RBC 3.38 L Hgb 11.2 L Hct 33.0 L MCV 97.6 MCH 33.1 MCHC 33.9 RDW 14.6 H Plt Count 275 MPV 9.4 Immature Gran % 0.5 Seg Neutrophils % 82.7 Lymphocytes % 8.4 Monocytes % 6.9 Eosinophils % 1.2 Basophils % 0.3 Neutrophils # 8.9 Lymphocytes # 0.9 Monocytes # 0.8 Eosinophils # 0.1 Basophils # 0.0 PT INR APTT Sodium 138 Potassium 4.0 Chloride 105 Carbon Dioxide 23 BUN 11 Creatinine 0.82 Est GFR ( Amer) > 60 Est GFR (Non-Af Amer) > 60 BUN/Creatinine Ratio 13 Glucose 85 Calculated Osmolality 285 Lactic Acid Calcium 8.8 Total Bilirubin 0.2 L Direct Bilirubin 0.0 Indirect Bilirubin 0.2 AST 12 L ALT 7 Alkaline Phosphatase 158 H Troponin I < 0.03 Serum Total Protein 6.8 Albumin 3.5 Globulin 3.3 Albumin/Globulin Ratio 1.1 Lipase 17 Urine Color Urine Clarity Urine pH Ur Specific [place] Urine Protein Urine Glucose (UA) Urine Ketones Urine Blood Urine Nitrite Urine Bilirubin Urine Urobilinogen Ur Leukocyte Esterase Ur Culture Indicated? Nasal Screen MRSA (PCR) Stool Occult Blood Specimen Rejected 05/11/18 05/11/18 05/11/18 05:40 05:40 05:40 WBC 7.1 RBC 3.06 L Hgb 9.9 L Hct 29.5 L MCV 96.4 MCH 32.4 MCHC 33.6 RDW 14.7 H Plt Count 242 MPV 9.8 Immature Gran % Seg Neutrophils % Lymphocytes % Monocytes % Eosinophils % Basophils % Neutrophils # Lymphocytes # Monocytes # Eosinophils # Basophils # PT 14.1 H INR 1.3 APTT Sodium 139 Potassium 3.7 Chloride 109 H Carbon Dioxide 22 L BUN 10 Creatinine 0.79 Est GFR ( Amer) > 60 Est GFR (Non-Af Amer) > 60 BUN/Creatinine Ratio 13 Glucose 95 Calculated Osmolality 287 Lactic Acid Calcium 8.3 L Total Bilirubin 0.3 Direct Bilirubin Indirect Bilirubin AST 10 L ALT 6 L Alkaline Phosphatase 133 H Troponin I Serum Total Protein 5.8 L Albumin 3.0 L Globulin 2.8 Albumin/Globulin Ratio 1.1 Lipase Urine Color Urine Clarity Urine pH Ur Specific [place] Urine Protein Urine Glucose (UA) Urine Ketones Urine Blood Urine Nitrite Urine Bilirubin Urine Urobilinogen Ur Leukocyte Esterase Ur Culture Indicated? Nasal Screen MRSA (PCR) Stool Occult Blood Specimen Rejected 05/11/18 05/11/18 05/11/18 11:18 11:20 11:20 WBC RBC Hgb 9.8 L Hct 29.5 L MCV MCH MCHC RDW Plt Count MPV Immature Gran % Seg Neutrophils % Lymphocytes % Monocytes % Eosinophils % Basophils % Neutrophils # Lymphocytes # Monocytes # Eosinophils # Basophils # PT INR APTT Sodium Potassium Chloride Carbon Dioxide BUN Creatinine Est GFR ( Amer) Est GFR (Non-Af Amer) BUN/Creatinine Ratio Glucose Calculated Osmolality Lactic Acid Calcium Total Bilirubin Direct Bilirubin Indirect Bilirubin AST ALT Alkaline Phosphatase Troponin I Serum Total Protein Albumin Globulin Albumin/Globulin Ratio Lipase Urine Color Urine Clarity Urine pH Ur Specific [place] Urine Protein Urine Glucose (UA) Urine Ketones Urine Blood Urine Nitrite Urine Bilirubin Urine Urobilinogen Ur Leukocyte Esterase Ur Culture Indicated? Nasal Screen MRSA (PCR) Stool Occult Blood Negative Specimen Rejected Accident 05/11/18 05/11/18 13:15 13:58 WBC RBC Hgb Hct MCV MCH MCHC RDW Plt Count MPV Immature Gran % Seg Neutrophils % Lymphocytes % Monocytes % Eosinophils % Basophils % Neutrophils # Lymphocytes # Monocytes # Eosinophils # Basophils # PT INR APTT Sodium Potassium Chloride Carbon Dioxide BUN Creatinine Est GFR ( Amer) Est GFR (Non-Af Amer) BUN/Creatinine Ratio Glucose Calculated Osmolality Lactic Acid 1.3 Calcium Total Bilirubin Direct Bilirubin Indirect Bilirubin AST ALT Alkaline Phosphatase Troponin I Serum Total Protein Albumin Globulin Albumin/Globulin Ratio Lipase Urine Color Urine Clarity Urine pH Ur Specific [place] Urine Protein Urine Glucose (UA) Urine Ketones Urine Blood Urine Nitrite Urine Bilirubin Urine Urobilinogen Ur Leukocyte Esterase Ur Culture Indicated? Nasal Screen MRSA (PCR) Negative Stool Occult Blood Specimen Rejected CTA OF THE CHEST 05/10/2018 8:00 pm FINDINGS: Pulmonary Arteries: Filling defects identified within the anterior segment proximal right upper lobe pulmonary artery on axial image 91 as well as the right lower lobe segmental pulmonary artery extending into the subsegmental branches on axial images 117-131. Mediastinum: Atherosclerotic calcification of the visualized aorta with atheromatous plaque. No dissection flap within the visualized aorta. No sizable pericardial effusion. Small left-sided pleural effusion. No axillary lymphadenopathy identified. Coronary artery disease. No enlarging mediastinal or right hilar lymphadenopathy evident. No axillary lymphadenopathy. Lungs/pleura: Trachea and proximal central airways appear patent. Stable 5 mm right middle lobe pulmonary nodule on axial image #94, unchanged from the prior study of 04/18/2018. Stable subpleural 4 mm pulmonary nodule in the right lower lobe on image 85. Mild underlying emphysema. Development of increased ground-glass opacity in the left lower lobe compared with the previous study which could represent infiltrate or edema as seen on axial image 106. Increasing ground-glass opacity in the superior segment of the left lower lobe as well as the posterior aspect of the left upper lobe since the previous study. Left hilar lymphadenopathy and soft tissue extension of left lung mass remains unchanged. Multifocal consolidative and ground-glass opacities and architectural distortion with traction bronchiectasis are otherwise unchanged since the prior study. Calcified low-density mass lesion in the left upper lobe is mildly enlarged from the prior exam measuring 6.6 x 6.4 cm in similar dimensions on axial image 86 where the mass was previously measured on the 04/18/2018 exam. Regions of low attenuation in the left upper lobe mass may represent necrosis. This measures 7.1 cm in greatest craniocaudal extent on sagittal image #61. Upper Abdomen: Stable 1.2 cm probable left adrenal adenoma. Stable wall thickening of the GE junction. Wall thickening of the stomach is nonspecific and could be related to incomplete distention. Excretion of contrast from the bilateral renal collecting systems. Stable inferior left renal pole parapelvic cyst. Soft Tissues/Bones: Mild diffuse degenerative changes throughout the spine. Multilevel Schmorl's node deformities. CT/CT angio chest IMPRESSION: 1. Right-sided pulmonary emboli as detailed above. 2. Slight enlargement of left upper lobe mass with low-attenuation and calcification since the prior study. There may be mild necrosis within the left upper lobe mass given the low attenuation. Increasing ground-glass opacity throughout the left lung superimposed on areas of multifocal consolidative and ground-glass opacity with architectural distortion and traction bronchiectasis since the prior exam raises concern for worsening multifocal pneumonia and/or worsening lymphangitic spread of tumor. 3. Stable 1.2 cm probable left adrenal adenoma. 4. Stable wall thickening of the GE junction. Stable wall thickening of the stomach which could be related to incomplete distention. 5. Mild underlying emphysema. 6. Right-sided pulmonary nodules measuring up to 5 mm. 7. Small left-sided pleural effusion. 8. Coronary artery disease. CT OF THE ABDOMEN AND PELVIS WITH CONTRAST 05/10/2018 7:06 pm FINDINGS: Lower Chest: Filling defect in the right lower lobe pulmonary arterial vasculature consistent with pulmonary embolus on axial images 14-20. Coronary artery disease. Stable 5 mm right minor fissure pulmonary nodule on axial image #8. Mild respiratory motion at the visualized lung bases. Consolidative and ground-glass opacities in the left lower lobe and lingula with associated bronchiectasis. Findings could represent organizing pneumonia with lymphangitic spread of tumor not entirely excluded. Low attenuation partially visualized mass in the inferior left upper lobe likely representing necrosis within the patient's primary left upper lobe malignancy/mass lesion. Small left-sided pleural effusion. No free intra-abdominal air. Stable wall thickening at the GE junction. Organs: Liver, gallbladder, spleen, right adrenal gland, and pancreas grossly unremarkable. Stable 1.2 cm left adrenal nodule, unchanged most likely adrenal adenoma. Stable 2.3 cm left lower pole left-sided parapelvic renal cyst. No hydronephrosis. Both kidneys are unchanged in appearance compared with the previous exam. GI/Bowel: Apparent wall thickening of the stomach could be related to incomplete distention. No significant dilation of small bowel loops to suggest small bowel obstruction. Appendix not definitively visualized. Fluid throughout the visualized colonic segments. Tortuosity of the rectosigmoid and sigmoid colon Pelvis: Urinary bladder is relatively nondistended. Pelvic phleboliths. Uterus and adnexa grossly unremarkable. Stable small fat containing bilateral inguinal hernias. No significant free fluid in the pelvis. No inguinal or pelvic sidewall lymphadenopathy. Peritoneum/Retroperitoneum: Circumferential atherosclerotic calcification of the abdominal aorta and branch vasculature with atheromatous plaque. No retroperitoneal lymphadenopathy. Psoas muscles normal in size and symmetric in appearance. Bones/Soft Tissues: Mild diffuse degenerative changes throughout the spine. Multilevel Schmorl's node deformities. Stable probable L3 vertebral body hemangioma. CT/CT abd pelvis w iv no oral IMPRESSION: 1. Filling defect in the right lower lobar pulmonary arterial vasculature consistent with pulmonary embolus. 2. Low density in association with the partially visualized known inferior left upper lobe mass likely representing necrosis within the patient's primary malignancy/mass lesion. 3. Small left-sided pleural effusion. 4. Left lower lobe and lingula consolidative and ground-glass opacities with associated bronchiectasis. Findings could represent organizing pneumonia with lymphangitic spread of tumor difficult to entirely exclude. 5. Stable wall thickening at the GE junction. 6. Stable left lower pole left-sided parapelvic cyst measuring 2.3 cm. 7. Stable 1.2 cm left adrenal nodule likely an adrenal adenoma. 8. Apparent wall thickening of the stomach could be related to incomplete distention. 9. Fluid throughout the visualized colonic segments can be seen with diarrheal disease. 10. Small fat containing bilateral inguinal hernias. 11. Circumferential atherosclerotic calcification and atheromatous plaque of the abdominal aorta and branch vasculature. Consult Discharge Plan - Plan Referrals: Loreta Prado CNP [Primary Care Provider] - Inpatient Charges Provider: Dr. Tristin Aj Consult - Inpatient: [id number]
[2018-05-11] MEDS ORDERED: Gadolinium Contrast Agent (WT Based) IV PRN (15:08)
[2018-05-11] MEDS: predniSONE 20 MG TABLET PO SCH (15:59)
[2018-05-11] MEDS ORDERED: Levofloxacin 750 MG/150 ML 750 MG/150 ML BAG IVPB SCH (23:00)
[2018-05-12] MEDS: Ondansetron 4 MG/2 ML VIAL IVP PRN ×3 (01:39→20:07)
[2018-05-12] MEDS: Ibuprofen 400 MG TABLET PO PRN (01:47)
[2018-05-12] MEDS: *HR* Enoxaparin 60 MG/0.6 ML SYRINGE SQ SCH ×2 (05:56→17:14)
[2018-05-12] MEDS: Ringers Solution, Lactated 1,000 ML IVC SCH ×2 (05:58→14:04)
[2018-05-12 06:32] LABS: Basophils % 0.3 %; Eosinophils # 0.1 K/mcL (0.0-0.6); Eosinophils % 1.1 %; Hematocrit 26.3 % (35.3-44.9); Hemoglobin 8.8 g/dL (11.5-15.4); Immature Granulocytes % 0.3 % (0-4); Lymphocytes # 0.8 K/mcL (0.6-4.6); Lymphocytes % 11.6 %; Mean Corpuscular HGB Conc 33.5 g/dL (31.6-35.5); Mean Corpuscular Hemoglobin 32.4 pg (28.0-33.3); Mean Corpuscular Volume 96.7 fL (83.0-100.0); Mean Platelet Volume 9.8 fL (9.4-12.4); Monocytes # 0.7 K/mcL (0.0-1.3); Monocytes % 9.6 %; Neutrophils # 5.5 K/mcL (1.6-8.9); Platelet Count 255 K/mcL (140-400); Red Blood Count 2.72 M/mcL (3.82-4.97); Red Cell Distribution Width 14.6 % (11.5-14.5); Segmented Neutrophils % 77.1 %
[2018-05-12 06:57] LABS: % Iron Saturation 22 % (15-50); BUN/Creatinine Ratio 10 (6-26); Blood Urea Nitrogen 8 mg/dL (8-23); Calcium 8.1 mg/dL (8.6-10.3); Carbon Dioxide 23 mEq/L (23-29); Chloride 109 mEq/L (98-107); Glucose 59 mg/dL (70-105); Iron 38 mcg/dL (50-170); Osmolality,Calculated 290 (280-300); Potassium 3.5 mEq/L (3.5-5.1); Sodium 142 mEq/L (136-145); Transferrin 122 mg/dL (203-362); eGFR For Non-African Americans > 60 (> 60)
[2018-05-12 07:13] LABS: Ferritin 112 ng/mL (10-120)
[2018-05-12 07:20] LABS: Folate 7.3 ng/mL (3.0-16.0)
[2018-05-12] MEDS: Piperacillin/Tazobactam 3.375 GM in 0.9 % Sodium Chloride Mini Bag 100 ML IVPB SCH ×2 (09:21→09:28)
[2018-05-12] MEDS: predniSONE 20 MG TABLET PO SCH (09:22)
[2018-05-12] MEDS: Cyanocobalamin (B-12) 1,000 MCG/ML VIAL SQ SCH (11:47)
[2018-05-12] MEDS: Doxycycline 100 MG CAPSULE PO SCH ×2 (11:47→20:47)
[2018-05-12] MEDS: Cefdinir 300 MG CAPSULE PO SCH ×2 (11:48→20:47)
[2018-05-12] MEDS ORDERED: Aminoglycoside Consult 1 EACH MC ONE (13:16)
--- NOTE | 2018-05-12 13:51 | Oncology Inp Progress Note ---
<Anusha Vazquez M - Last Filed: 05/12/18 17:28> Date of Encounter: 05/12/18 Time of Encounter: 11:50 (1) Infiltrate noted on imaging study Current Visit: Yes Status: Acute Assessment and plan: This may represent an organizing pneumonia but also may represent radiation pneumonitis. The time would be consistent with such. I recommended initiation of prednisone 60 mg daily with a slow taper over the course of 4-6 weeks. I agree with broad-spectrum antimicrobials as prescribed by the primary team. Discussed the long, slow taper of prednisone with patient. Verbalized understanding of plan. Denies cough or shortness of breath at this time. (2) Pulmonary embolus Current Visit: Yes Status: Acute Assessment and plan: (2) Pulmonary embolus Status: Acute Assessment and plan: Patient has a right sided pulmonary embolism. I recommended duplex Doppler the bilateral lower extremities for baseline. I recommended Lovenox 60 mg every 12 hours which has been instituted. This can be transitioned to Xarelto 15 mg twice a day 21 days to be followed by 20 mg a day thereafter. Please obtain social work evaluation for medication coverage. Xarelto is considered equivale nt to low molecular weight heparin in those with malignancy. 05/11/18 bilateral venous duplex: negative for DVT Patient continues on Lovenox at this time. Qualifiers: Pulmonary embolism type: unspecified Chronicity: acute Acute cor pulmonale presence: without acute cor pulmonale Qualified Code(s): I26.99 - Other pulmonary embolism without acute cor pulmonale Qualifiers: Pulmonary embolism type: unspecified Chronicity: acute Acute cor pulmonale presence: without acute cor pulmonale Qualified Code(s): I26.99 - Other pulmonary embolism without acute cor pulmonale (3) Lung cancer Current Visit: Yes Status: Acute Assessment and plan: (3) Lung cancer Status: Acute Assessment and plan: Changes noted in the left lung mass. This may be evolution of treatment changes. I recommend close follow-up CT imaging in approximately 8 weeks' time for further evaluation. If further enlargement continues, PET/CT imaging will be indicated. She does have a headache with nausea and emesis. She received PCI in the past. I have ordered MRI the brain with IV contrast to evaluate for metastatic disease. MRI brain 05/12/18: no brain metastasis noted. Qualifiers: Laterality: left Lung location: lower lobe of lung Qualified Code(s): C34.32 - Malignant neoplasm of lower lobe, left bronchus or lung Qualifiers: Laterality: left Lung location: lower lobe of lung Qualified Code(s): C34.32 - Malignant neoplasm of lower lobe, left bronchus or lung (4) Nausea & vomiting Current Visit: Yes Status: Acute Assessment and plan: Patient complains of nausea and dizziness this evening. Denies vomiting. Discussed need for improvement in symptoms prior to discharge. Patient's family reluctant for discharge tomorrow for fear of readmission. Plan: Nausea: Zofran 4 mg IV: utilizing twice per day since admission. Add Reglan before meals and at bedtime. Dizziness: Add Meclizine PRN. Qualifiers: Vomiting type: unspecified Vomiting Intractability: unspecified Qualified Code(s): R11.2 - Nausea with vomiting, unspecified Oncology: Subj Interval history: Cici, a 58 yo female with small cell lung cancer, is awake and alert in bed. She denies cough and shortness of breath. She notes that she just returned from an MRI of her brain. She states that she is feeling okay this morning, but she did not eat breakfast due to diarrhea. She states that she was afraid that eating would make her need to use the bathroom during her MRI so she did not eat. No further loose stools since returning to room. She denies fever or chills. She denies nausea, vomiting, or abdominal pain. Upon afternoon assessment, patient complaining of diarrhea and nausea. She did receive Zofran 4 mg IV around 1400. Discussed addition of Reglan before meals and at bedtime. Patient open to trying new medication for nausea. She also complains of feeling dizzy when getting up to use the bathroom. Will try meclizine PRN. Patient notified that she must ask for the meclizine, but the reglan will be scheduled. Verbalized understanding. - Constitutional General appearance: cooperative, no acute distress - Head Head exam: Present: normal inspection, normocephalic - Respiratory Respiratory exam: Present: decreased breath sounds. Absent: rales, respiratory distress, rhonchi, wheezes - Cardiovascular Cardiovascular exam: Present: RRR - GI/Abdominal GI/Abdominal exam: Present: normal bowel sounds, soft. Absent: tenderness - Extremities Exam Extremities exam: Present: normal inspection. Absent: tenderness - Neurological Exam Neurological exam: Present: alert, oriented X3. Absent: facial droop, speech deficit - Psychiatric Psychiatric exam: Present: normal affect, normal mood - Skin Skin exam: Present: dry, pallor Oncology: Obj Data - Labs CBC & Chem 7: 05/12/18 05:09 05/12/18 05:09 Consult Discharge Plan - Plan Referrals: Loreta Prado CNP [Primary Care Provider] - Prescriptions: Rivaroxaban [Xarelto] 1 dose PO AD 30 Days pack Inpatient Charges Provider: Dr. Tristin Aj <MadaiNate S - Last Filed: 05/12/18 20:11> Date of Encounter: 05/12/18 (1) Infiltrate noted on imaging study Current Visit: Yes Status: Acute (2) Pulmonary embolus Current Visit: Yes Status: Acute Qualifiers: Pulmonary embolism type: unspecified Chronicity: acute Acute cor pulmonale presence: without acute cor pulmonale Qualified Code(s): I26.99 - Other pulmonary embolism without acute cor pulmonale (3) Lung cancer Current Visit: Yes Status: Acute Qualifiers: Laterality: left Lung location: lower lobe of lung Qualified Code(s): C34.32 - Malignant neoplasm of lower lobe, left bronchus or lung Oncology: Obj Data - Labs CBC & Chem 7: 05/12/18 05:09 05/12/18 05:09 Inpatient Charges Provider: Dr. Tristin Aj Follow up - Inpatient: [id number] - Attending Attestation I examined this patient and my medical decision-making was reviewed with the Advanced Practice Nurse. I agree with the documented findings, disposition and treatment plan as described except to the extent set forth below. Ms. Garrett is doing okay. Still dizzy with sitting up. In addition she will have an occasional headache at this time as well. Breathing is a bit better. She is less dyspneic. She remains fatigued. Her son is at her bedside asking me not discharge or prematurely. Appetite remains poor. Nausea waxes and wanes. MRI imaging of brain is without evidence of recurrence. I have recommended initiation of Reglan 10 mg before meals and at bedtime to help with nausea. She may continue Zofran as needed. She may transitioned to Xarelto is now patient or pulmonary embolism. Hopefully over the next 24-48 hours, her symptoms will improve. Continue prednisone for possible radiation pneumonitis with 4 week titration. Continue supportive measures in the meantime.
--- NOTE | 2018-05-12 14:36 | Internal Med Progress Note ---
<Sandeep Fuentes - Last Filed: 05/12/18 14:32> Hospitalist Progress Note - Encounter Date of Encounter: 05/12/18 Time of Encounter: 14:32 - Subjective Interval History: Patient was sitting in bed without any complaints. She reports her shortness of breath has returned to baseline. She has chronic sputum production. She does not have any chest pain, abdominal pain, nausea, vomiting, diarrhea. - Exam Vitals: Temp Pulse Resp BP Pulse Ox 97.9 F 64 18 107/57 98 05/12/18 10:43 05/12/18 10:43 05/12/18 10:43 05/12/18 10:43 05/12/18 10:43 Exam: General: pleasant, without distress Cardiovascualr: Regular rate and rhythm with no murmur, absent gallops or rubs, absent pedal edema, radial pulses 2 out of 4 Lungs: Left lower lobe crackles, otherwise clear Abdomen: Soft nontender, nondistended positive bowel sounds, absent hepatomegaly Skin: warm and dry, absent rash, absent open wounds and nodules MSK: absent clubbing, cyanosis, joints without swelling Neuro: Cranial nerves II through XII intact, UE and LE sensation equal bilaterally, Psych: good insight and judgment, - Assessment and Plan (1) Pulmonary embolus Current Visit: Yes Status: Acute Assessment and Plan: We will continue therapeutic Lovenox and have sent xeralto for hardy check. Social work will follow-up with family and patient if they are okay with hardy of $110 a month. Venous Doppler preliminary negative bilaterally. Appreciate oncology recommendations. (2) Anemia Current Visit: Yes Status: Acute Assessment and Plan: Since admission patient has developed a worsening anemia. Hemoglobin was 11.2 on 05/10 and the date is 8.8 Patient is high risk for bleeding with initiation of anticoagulation for pulmonary embolism. She also has a vitamin B12 deficiency which she has been started on replacement. Patient's iron panel shows a saturation of 22% and iron count of 38 with a ferritin of 112. We will continue to trend H&H. (3) Vitamin B12 deficiency Current Visit: Yes Status: Acute Assessment and Plan: Plan as above. (4) Infiltrate noted on imaging study Current Visit: Yes Status: Acute Assessment and Plan: Unclear if this is secondary to radiation or pneumonia Patient was initially started on broad-spectrum antibiotics and blood cultures were drawn. We will transition to by mouth antibiotics for total of 5 day course as patient is not requiring oxygen supplementation and does not exhibit signs and symptoms of pneumonia specifically worsening cough, sputum production, fever, shortness of breath. Furthermore there is concern for radiation pneumonitis and patient will be started on high-dose prednisone 60 mg with a slow taper over 4-6 weeks. (5) Lung cancer Current Visit: Yes Status: Acute Assessment and Plan: Patient has small cell lung cancer MRI of the brain is negative for metastasis Further recommendations as per oncology (6) Seizures Current Visit: Yes Status: Chronic Assessment and Plan: Continue Dilantin. - Time Spent with Patient Total time spent is greater than 50% in coordination of care (as documented) at patient's floor/unit and/or counseling patient: Internal Medicine: Result - Labs CBC & Chem 7: 05/12/18 05:09 05/12/18 05:09 Labs: Short CBC 05/12/18 Range/Units 05:09 WBC 7.2 (4.3-11.1) K/mcL Hgb 8.8 L (11.5-15.4) g/dL Hct 26.3 L (35.3-44.9) % Plt Count 255 (140-400) K/mcL Neutrophils # 5.5 (1.6-8.9) K/mcL BMP 05/12/18 05:09 Sodium 142 Potassium 3.5 Chloride 109 H Carbon Dioxide 23 BUN 8 Creatinine 0.78 Glucose 59 L Calcium 8.1 L - ABG Interpretation ABG results: PT/INR, D-dimer PT 14.1 Seconds (9.4-12.1) H 05/11/18 05:40 - Impressions Impressions Brain MRI 05/12/18 15:08 IMPRESSION: No evidence of acute intracranial abnormality or intracranial metastasis Mild chronic small vessel ischemic disease within the periventricular white matter both cerebral hemispheres D/ / Jim Parson MD / Jim Parson MD Interpreting Provider: Jim Parson MD Consult Discharge Plan - Plan Referrals: Loreta Prado CNP [Primary Care Provider] - Prescriptions: Rivaroxaban [Xarelto] 1 dose PO AD 30 Days pack <Molly Ward - Last Filed: 05/12/18 15:16> Hospitalist Progress Note - Encounter Date of Encounter: 05/12/18 Time of Encounter: 09:20 - Exam Vitals: Temp Pulse Resp BP Pulse Ox 97.9 F 64 18 107/57 98 05/12/18 10:43 05/12/18 10:43 05/12/18 10:43 05/12/18 10:43 05/12/18 10:43 - Time Spent with Patient Total time spent is greater than 50% in coordination of care (as documented) at patient's floor/unit and/or counseling patient: Internal Medicine: Result - Labs CBC & Chem 7: 05/12/18 05:09 05/12/18 05:09 Labs: Short CBC 05/12/18 Range/Units 05:09 WBC 7.2 (4.3-11.1) K/mcL Hgb 8.8 L (11.5-15.4) g/dL Hct 26.3 L (35.3-44.9) % Plt Count 255 (140-400) K/mcL Neutrophils # 5.5 (1.6-8.9) K/mcL BMP 05/12/18 05:09 Sodium 142 Potassium 3.5 Chloride 109 H Carbon Dioxide 23 BUN 8 Creatinine 0.78 Glucose 59 L Calcium 8.1 L - ABG Interpretation ABG results: PT/INR, D-dimer PT 14.1 Seconds (9.4-12.1) H 05/11/18 05:40 - Impressions Impressions Brain MRI 05/12/18 15:08 IMPRESSION: No evidence of acute intracranial abnormality or intracranial metastasis Mild chronic small vessel ischemic disease within the periventricular white matter both cerebral hemispheres D/ / Jim Parson MD / Jim Parson MD Interpreting Provider: Jim Parson MD - Attending Attestation I saw evaluated and examined this patient and my medical decision-making was reviewed with the Resident Physician, Sandeep Fuentes. I agree with the documented findings, disposition and treatment plan as described except to any changes set forth below. We independently had [id number] contact with the patient. Patient is lying down in bed. Comfortable. Denies any fevers or chills overnight. She was scheduled to obtain MRI of the brain per oncology recommendations today. She does continue to have some shortness of breath. Along with cough. General: Patient is alert, no acute distress, oriented x 3 Respiratory: Coarse breath sounds and wheezing bilaterally Cardiovascular: Regular rate and rhythm. s1 and s2 normal No clicks, rubs, gallops, or murmurs. No pedal edema Abdomen: Abdomen is soft, nontender. Bowel sounds are present Musculoskeletal: Spontaneously moving all extremities Pulmonary embolism: Continue anticoagulation. Patient will be switched to Xarelto at discharge. For now continue Lovenox. Pneumonia/radiation pneumonitis: CTA of the chest shows left upper lobe mass with necrosis and consolidative changes. Could be pneumonia or radiation pneumonitis. Continue antibiotics. Started on prednisone per oncology recommendations. History of small cell lung cancer: Oncology input appreciated. Continue supportive care. O2 supplementation as needed. Anemia: Acute on chronic anemia hemoglobin 8.8 today. She does have vitamin B12 deficiency and would benefit from supplements. She is receiving anticoagulation at this time. Stool negative for occult blood. Will continue to monitor hemoglobin levels. If hemoglobin levels continued to trend downwards, she will probably need endoscopy to rule out bleeding. Seizure disorder: Continue Dilantin <Sandeep Fuentes - Last Filed: 05/12/18 14:32> (1) Pulmonary embolus Qualifiers: Pulmonary embolism type: unspecified Chronicity: acute Acute cor pulmonale presence: without acute cor pulmonale Qualified Code(s): I26.99 - Other pulmonary embolism without acute cor pulmonale (2) Anemia Qualifiers: Anemia type: unspecified type Qualified Code(s): D64.9 - Anemia, unspecified (5) Lung cancer Qualifiers: Laterality: left Lung location: lower lobe of lung Qualified Code(s): C34.32 - Malignant neoplasm of lower lobe, left bronchus or lung
[2018-05-13] MEDS: *HR* Enoxaparin 60 MG/0.6 ML SYRINGE SQ SCH (05:52)
[2018-05-13 06:53] LABS: Hematocrit 27.9 % (35.3-44.9); Hemoglobin 9.5 g/dL (11.5-15.4); Mean Corpuscular HGB Conc 34.1 g/dL (31.6-35.5); Mean Corpuscular Hemoglobin 32.6 pg (28.0-33.3); Mean Corpuscular Volume 95.9 fL (83.0-100.0); Mean Platelet Volume 9.7 fL (9.4-12.4); Platelet Count 272 K/mcL (140-400); Red Blood Count 2.91 M/mcL (3.82-4.97); Red Cell Distribution Width 14.6 % (11.5-14.5)
[2018-05-13] MEDS: Doxycycline 100 MG CAPSULE PO SCH (07:30)
[2018-05-13] MEDS: predniSONE 20 MG TABLET PO SCH (07:30)
[2018-05-13] MEDS: Cyanocobalamin (B-12) 1,000 MCG/ML VIAL SQ SCH (07:30)
[2018-05-13] MEDS: Cefdinir 300 MG CAPSULE PO SCH (07:30)
[2018-05-13] MEDS: Ondansetron 4 MG/2 ML VIAL IVP PRN (07:39)
--- NOTE | 2018-05-13 07:43 | Discharge Summary ---
<Sandeep Fuentes - Last Filed: 05/13/18 11:24> - NOTES TO OUTPATIENT PROVIDER Notes to Outpatient Provider: Patient presented with cc of weakness. Found to have new PE, radiation pneumonitis, suspected pneumonia. Seen by Dr. Aj in the hospital. discharged on xaralto, cefdinir and omnicef for 3 additional days, reglan, high dose prednisone taper over one month. B12 def started on b12 supplements. Patient family told not to use NSAIDs. Also told to take nutritional supplements like ensure with every meal. Orders not resulted at time of discharge: Pending orders 05/10/18 20:32 Culture,Blood [BC] Stat Date of Encounter: 05/13/18 Time of Encounter: 11:24 - Discharge Diagnosis (1) Pulmonary embolus Priority: Primary Status: Acute Qualifiers: Pulmonary embolism type: other Chronicity: acute Acute cor pulmonale presence: without acute cor pulmonale Qualified Code(s): I26.99 - Other pulmonary embolism without acute cor pulmonale (2) Anemia Priority: Secondary Status: Acute Qualifiers: Anemia type: B12 deficiency Vitamin B12 deficiency anemia type: unspecified B12 deficiency Qualified Code(s): D51.9 - Vitamin B12 deficiency anemia, unspecified (3) Vitamin B12 deficiency Priority: Secondary Status: Chronic (4) Infiltrate noted on imaging study Priority: Secondary Status: Chronic (5) Lung cancer Priority: Secondary Status: Chronic Qualifiers: Laterality: left Lung location: lower lobe of lung Qualified Code(s): C34.32 - Malignant neoplasm of lower lobe, left bronchus or lung (6) Seizures Priority: Secondary Status: Chronic Hospital course: Ms. Garrett is a 58 year old female with history of small cell lung cancer presented with chief complaint of weakness. Patient was discharged from the hospital around 4 weeks ago for pneumonia and was treated with steroids and Levaquin. Since her discharge patient reports she had never improved and her weakness continued. Family stated she was increasingly somnolent. Furthermore patient reports dizziness, vomiting, nausea and poor appetite. Chest x-ray shows stable left lung mass with surrounding irregular opacities. CT abdomen pelvis with IV contrast showed RLL PE, left lower lobe and lingual consolidative and groundglass opacities associated bronchiectasis which could represent pneumonia versus lymphatic spread of tumor, stable left adrenal nodule. Chest CTA confirmed pulmonary emboli. Bilateral lower extremity Dopplers were negative for DVT. Patient was started on heparin drip and then transitioned to xeralto. She received IV fluids on admission for dehydration and had subsequent dilutional decrease in hemoglobin. For the past 48 hours patient's hemoglobin has been stable around 9. She is found to have B12 deficiency and started on supplementation. Oncology was consulted and was concerned patient likely has radiation pneumonitis and started on prednisone. MRI of the brain was done seco ndary to headache and dizziness which did not show signs of metastasis. Patient was also started on broad-spectrum antibiotics for possible pneumonia and these were Descalated as her blood cultures are negative and she did not show signs of infection. Today patient was ambulating independently and tolerating her diet. Patient will be discharged with xeralto for anticoagulation, Omnicef and doxycycline for 3 days to finish antibiotic regimen, Reglan for nausea, prednisone taper for radiation pneumonitis as well as meclizine for dizziness as needed. Follow-up with oncology. - Time Spent with Patient Total time spent providing and/or coordinating discharge services: - Discharge Medications Prescriptions: New Rivaroxaban [Xarelto] 1 dose PO AD 30 Days pack Rivaroxaban [Xarelto] 20 mg PO DAILY #30 tablet Cefdinir [Omnicef] 300 mg PO BID #6 capsule Cyanocobalamin/Cobamamide [Vitamin B-12 5,000 Mcg Tab Sl] 1 each SL DAILY #30 tab.subl Doxycycline 100 mg PO BID #6 capsule Meclizine [Antivert] 12.5 mg PO TID PRN #30 tablet PRN Reason: Dizziness Metoclopramide [Reglan] 10 mg PO QIDAC #120 tablet predniSONE [PredniSONE] 60 mg PO TAPER #46 tablet Continue Phenytoin ER [Dilantin ER] 300 mg PO BID Omeprazole [PriLOSEC] 20 mg PO DAILY Ondansetron [Zofran] 8 mg PO Q8HR PRN #60 tablet PRN Reason: Nausea Prochlorperazine Maleate [Compazine] 10 mg PO Q6HR PRN #90 tablet PRN Reason: Nausea Mv-Mn/Folic Acid/Vit [id number] [Alive Once Daily Women 50 Plus] 1 each PO DAILY Home Medications: Omeprazole [PriLOSEC] 20 mg PO DAILY 09/16/17 [History] Phenytoin ER [Dilantin ER] 300 mg PO BID 09/16/17 [History] Ondansetron [Zofran] 8 mg PO Q8HR PRN #60 tablet 10/08/17 [Rx] Prochlorperazine Maleate [Compazine] 10 mg PO Q6HR PRN #90 tablet 02/07/18 [Rx] Mv-Mn/Folic Acid/Vit [id number] [Alive Once Daily Women 50 Plus] 1 each PO DAILY 04/18/18 [History] Rivaroxaban [Xarelto] 1 dose PO AD 30 Days pack 05/12/18 [Rx] Cefdinir [Omnicef] 300 mg PO BID #6 capsule 05/13/18 [Rx] Cyanocobalamin/Cobamamide [Vitamin B-12 5,000 Mcg Tab Sl] 1 each SL DAILY #30 tab.subl 05/13/18 [Rx] Doxycycline 100 mg PO BID #6 capsule 05/13/18 [Rx] Meclizine [Antivert] 12.5 mg PO TID PRN #30 tablet 05/13/18 [Rx] Metoclopramide [Reglan] 10 mg PO QIDAC #120 tablet 05/13/18 [Rx] Rivaroxaban [Xarelto] 20 mg PO DAILY #30 tablet 05/13/18 [Rx] predniSONE [PredniSONE] 60 mg PO TAPER #46 tablet 05/13/18 [Rx] Allergies/Adverse Reactions: Allergy/AdvReac Type Severity Reaction Status Date / Time No Known Allergies Allergy Verified 05/11/18 16:27 Date of admission: 05/12/18 15:59 Primary care physician: Loreta Prado CNP Consults: 05/10/18 19:40 Consult to Oncology Hematology [CONS] Stat Consulting Provider: Nate Aj Reason for Consult: necrotizing lung mass, PE, pneumoina Time Notified: 19:40 Call Completed: Yes Discharging clinician: Sandeep Fuentes Anticipated date of discharge: 05/13/18 - Constitutional Vitals: Temp Pulse Resp BP Pulse Ox 98.5 F 66 16 109/62 96 05/13/18 07:15 05/13/18 07:15 05/13/18 07:15 05/13/18 07:15 05/13/18 07:15 General appearance: Present: cooperative, A&O X 3, pleasant, no acute distress, answers questions appropriately. Absent: disheveled Exam: General: pleasant, without distress Cardiovascualr: Regular rate and rhythm with no murmur, absent gallops or rubs, absent pedal edema, radial pulses 2 out of 4 Lungs: Left lower lobe crackles, otherwise clear Abdomen: Soft nontender, nondistended positive bowel sounds, absent hepatomegaly Skin: warm and dry, absent rash, absent open wounds and nodules MSK: absent clubbing, cyanosis, joints without swelling Neuro: Cranial nerves II through XII intact, UE and LE sensation equal bilaterally, Psych: good insight and judgment, - Patient Status Disposition: Home, Self-Care Condition: Good Functional capacity at discharge: independent ambulation Overall status at discharge: patient is progressing back to baseline - Discharge Instructions Follow Up With: Loreta Prado CNP [Primary Care Provider] - 05/20/18 10:00 am - Diet and Activity Activity: increase activity as tolerated Diet: advance to your usual diet <Molly Ward - Last Filed: 05/13/18 13:34> Orders not resulted at time of discharge: Pending orders 05/10/18 20:32 Culture,Blood [BC] Stat Date of Encounter: 05/13/18 Time of Encounter: 09:25 Hospital course: Ms. Garrett is a 58 year old female - Time Spent with Patient Total time spent providing and/or coordinating discharge services: Time spent: Less than 30 minutes (8 min) Date of admission: 05/12/18 15:59 Primary care physician: Loreta Prado CNP Consults: 05/10/18 19:40 Consult to Oncology Hematology [CONS] Stat Consulting Provider: Nate Aj Reason for Consult: necrotizing lung mass, PE, pneumoina Time Notified: 19:40 Call Completed: Yes - Constitutional Vitals: Temp Pulse Resp BP Pulse Ox 98.4 F 71 18 97/55 94 05/13/18 10:34 05/13/18 10:34 05/13/18 10:34 05/13/18 10:34 05/13/18 10:34 - Attending Attestation I saw evaluated and examined this patient and my medical decision-making was reviewed with the Resident Physician, Sandeep Fuentes. I agree with the documented findings, disposition and treatment plan as described except to any changes set forth below. We independently had [id number] contact with the patient. Patient with a history of small cell lung cancer, seizure disorder was hospital ized here with right lower lobe pulmonary embolism along with consolidative changes in the left upper lobe. She was started on IV heparin and IV antibiotics. Her symptoms are slowly improving. She is now doing much better. She was in hospital for longer than expected due to acute on chronic anemia that she developed after starting anticoagulation. However her hemoglobin levels have since stabilized. She was found to have vitamin B12 deficiency and has been placed on supplementation for that. She was evaluated by oncology and taste on the review of her images, the suspected radiation pneumonitis also. As such patient will be discharged on prednisone also and will follow up with oncology. At this time she is clinically stable to be discharged on oral Xarelto. She will be on this medication for at least 6 months and may need further course depending on oncology recommendations at her follow-up appointments. On exam, patient is awake and alert. S1 and S2 are normal. She has prolonged expiratory phase with coarse breath sounds bilaterally.
[2018-05-13 10:39] VITALS: BP 97/55
--- NOTE | 2018-05-14 17:31 | Electrocardiograph Report ---
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
== END 2018-05-13 13:17 | disposition home or self-care (01) | DRG 176 ==
LOC: 3ANU 16:10 → EMEROOARM 16:10 → SUATTDRO 20:32 → 3ANU 22:31
PROVIDERS: ADMIT Family Medicine; ATTEND Internal Medicine